=== PATIENT | male | born 1940 | race African-American/Black ===

== ENCOUNTER 2019-05-08 21:37 | Inpatient (IN) | payer MEDICARE, BC ==
[~2019-05-08] VITALS: Ht 175.3 cm; Wt 81.6 kg
--- NOTE | 2019-05-08 21:38 | NUR ---
ED Nurse Note: pt brought in by [facility] from home c/o weakness, pt states he felt weak starting yesterday and worsen today, difficulty getting out of bed, pt also reports he hasn't been eating well for past couple of days. pt accucheck 144 at the bedside, pt AA&ox4, gcs=15, skin warm and dry, resp even and unlabored on RA,-n/v/d, sinus tach on campus monitor, HR 108, vss, afebrile, will cont monitor. safety precautions in place.
[2019-05-08 21:55] VITALS: BP 130/70
--- NOTE | 2019-05-08 22:15 | NUR ---
ED Nurse Note: ERMD notified regarding pts o2sat, pt o2sat 88% on RA, pt states he is former smoker and has hx emphysema. pt started on o2 via nc 2L/min. no sx resp distress.
[2019-05-08 22:29] LABS: HEMATOCRIT 49.2 % (42.0-52.0); HEMOGLOBIN 16.7 G/DL (14.2-18.0); MEAN CORPUSCULAR VOLUME 77 FL (80-99); PLATELET COUNT 129 K/UL (150-450); RED BLOOD COUNT 6.39 M/UL (4.70-6.10); RED CELL DISTRIBUTION WIDTH 13.2 % (11.6-14.8); WHITE BLOOD COUNT 11.7 K/UL (4.8-10.8)
[2019-05-08 22:31] LABS: NEUTROPHILS % (AUTO) 92.4 % (45.0-75.0)
[2019-05-08 22:32] LABS: BASOPHILS % (AUTO) 0.9 % (0.0-2.0); LYMPHOCYTES % (AUTO) 3.1 % (20.0-45.0); MONOCYTES % (AUTO) 3.6 % (1.0-10.0)
[2019-05-08 22:41] LABS: ANION GAP 12 mmol/L (5-15); BLOOD UREA NITROGEN 12 mg/dL (7-18); CALCIUM 9.8 MG/DL (8.5-10.1); CARBON DIOXIDE 25 MMOL/L (21-32); CHLORIDE 103 MMOL/L (98-107); CREATININE 1.2 MG/DL (0.55-1.30); POTASSIUM 3.4 MMOL/L (3.5-5.1); SODIUM 140 MMOL/L (136-145)
[2019-05-08 22:54] LABS: ALANINE AMINOTRANSFERASE 15 U/L (12-78); ALBUMIN 3.7 G/DL (3.4-5.0); ALBUMIN/GLOBULIN RATIO 0.8 (1.0-2.7); ALKALINE PHOSPHATASE 103 U/L (46-116); ASPARTATE AMINO TRANSFERASE 12 U/L (15-37); BILIRUBIN,TOTAL 1.4 MG/DL (0.2-1.0); CKMB 0.7 NG/ML (0.0-3.6); CREATINE KINASE 82 U/L (26-308)
[2019-05-08 22:55] VITALS: BP 132/75
[2019-05-08 22:56] LABS: BILIRUBIN,DIRECT 0.2 MG/DL (0.0-0.3)
--- NOTE | 2019-05-08 23:50 | NUR ---
ED Nurse Note: lactic reflex sent.
[2019-05-09] VITALS (7 sets, daily range): BP systolic 110–183; BP diastolic 66–111
--- NOTE | 2019-05-09 00:13 | NUR ---
ED Nurse Note: pt states he cannot urinate at this time, pt received 1L NS and drank water, ERMD notified, per ERMD order in and out cath done to obtain urine sample, pt tolerated well. pt verbalized understanding and agrees with plan.
[2019-05-09 00:29] LABS: APPEARANCE,URINE SLIGHTLY CLOUDY; BILIRUBIN, URINE NEGATIVE (NEGATIVE); GLUCOSE, URINE (UA) NEGATIVE (NEGATIVE); KETONES,URINE 3+ (NEGATIVE); LEUKOCYTE ESTERASE ,URINE 3+ (NEGATIVE); NITRITE,URINE NEGATIVE (NEGATIVE); PH,URINE 5 (4.5-8.0); PROTEIN,URINE 3+ (NEGATIVE); UROBILINOGEN,URINE 1 MG/DL (0.0-1.0)
--- NOTE | 2019-05-09 01:10 | NUR ---
ED Nurse Note: ERMD AWARE OF PT'S TROPONIN LEVEL, WILL WAIT FOR FURTHER ORDERS.
[2019-05-09 01:18] LABS: COLOR,URINE YELLOW
--- NOTE | 2019-05-09 01:18 | NUR ---
ED Nurse Note: REPORT GIVEN TO STEPHANIE CANCHOLA.
[2019-05-09] MEDS ORDERED: cefTRIAXone 1 GM in D5W 55 ML IVPB ONE (01:30)
--- NOTE | 2019-05-09 01:50 | NUR ---
ED Nurse Note: PT TRANSFERRED TO TELE VIA GURNEY, SINUS RHYTHM ON CASTINGS TRIMMER, VSS, RESP EVEN AND UNLABORED ON O2 VIA NC=2L/MIN, CARE ENDORSED TO RN SUSHANT, ALL BELONGINGS SENT W/ PT W/ COMPLETED LIST, IV INTACT AND PATENT.
--- NOTE | 2019-05-09 02:00 | NUR ---
NURSE NOTES: Received patient via gurney from ER brought by Serenity BROWN. Patient in stable condition, AO x4, denies pain at this time, on O2@2L, IV site on L forearm G20, asymptomatic, intact, patent, no skin impairment, belongings list checked and signed, bed low&locked, side rails upx2, call light within reach, will continue to monitor and reassess.
--- NOTE | 2019-05-09 02:45 | NUR ---
NURSE NOTES: Called Dr. Sánchez and received admission orders. Noted and carried out
--- NOTE | 2019-05-09 03:30 | Emergency Room Report ---
History of Present Illness General Chief Complaint: Generalized Weakness Source: Patient Present Illness HPI Patient presents with complaints of general weakness Denies any focal weakness however over the past 3 days he has had decreased oral intake Denies any chest pain denies any vomiting or diarrhea Family also reports that the patient is usually more energetic and appears to be weaker than usual unknown regarding fevers denies any change in medications Allergies: Coded Allergies: No Known Allergies (Verified , 09/09/11) Patient History Past Medical History: see triage record Reviewed Nursing Documentation: PMH: Agreed; PSxH: Agreed Nursing Documentation-PMH Past Medical History: No History, Except For Hx Cardiac Problems: No - HIGH CHOLESTEROL Hx Hypertension: Yes Hx COPD: Yes - EMPHYSEMA Hx Diabetes: Yes - NIDDM Review of Systems All Other Systems: negative except mentioned in HPI Physical Exam Vital Signs Date Time Temp Pulse Resp B/P (MAP) Pulse Ox O2 Delivery O2 Flow Rate FiO2 05/08/19 21:33 98.2 109 18 133/76 (95) 83 Room Air 05/08/19 22:55 2.0 Sp02 EP Interpretation: reviewed, normal General Appearance: well appearing, no apparent distress Head: normocephalic, atraumatic Eyes: bilateral eye PERRL, bilateral eye EOMI ENT: hearing grossly normal, TMs + canals normal, uvula midline, dry mucus membranes Neck: full range of motion, supple, no meningismus, no bony tend Respiratory: lungs clear, normal breath sounds, no rhonchi, no respiratory distress, no retraction, no accessory muscle use Cardiovascular #1: normal peripheral pulses, regular rate, rhythm, no edema, no gallop, no JVD, no murmur Gastrointestinal: normal bowel sounds, non tender, soft, no mass, no organomegaly, non-distended, no guarding, no hernia, no pulsatile mass, no rebound Genitourinary: no CVA tenderness Musculoskeletal: normal inspection Neurologic: oriented x3, responsive, chiropractic neurologist III-XII nml as tested, motor strength/ tone normal, sensory intact Psychiatric: mood/affect normal Skin: no rash Lymphatic: normal inspection, no adenopathy Medical Decision Making Diagnostic Impression: Primary Impression: UTI (urinary tract infection) Additional Impressions: Weakness Dehydration ER Course Patient is a fairly complex patient with multiple differential to consideration including but not limited to cardiac cardiopulmonary and vascular emergencies Other infectious pathology also entertained patient's troponin level is mildly elevated EKG does not show any acute findings Patient's urine sample also shows significant infection Broad-spectrum antibiotics initiated IV hydration and patient admitted for further care Labs Test 05/08/19 21:50 05/08/19 23:50 White Blood Count 11.7 K/UL (4.8-10.8) Red Blood Count 6.39 M/UL (4.70-6.10) Hemoglobin 16.7 G/DL (14.2-18.0) Hematocrit 49.2 % (42.0-52.0) Mean Corpuscular Volume 77 FL (80-99) Mean Corpuscular Hemoglobin 26.1 PG (27.0-31.0) Mean Corpuscular Hemoglobin Concent 33.9 G/DL (32.0-36.0) Red Cell Distribution Width 13.2 % (11.6-14.8) Platelet Count 129 K/UL (150-450) Mean Platelet Volume 7.4 FL (6.5-10.1) Neutrophils (%) (Auto) 92.4 % (45.0-75.0) Lymphocytes (%) (Auto) 3.1 % (20.0-45.0) Monocytes (%) (Auto) 3.6 % (1.0-10.0) Eosinophils (%) (Auto) 0.0 % (0.0-3.0) Basophils (%) (Auto) 0.9 % (0.0-2.0) Urine Color Yellow Urine Appearance Slightly cloudy Urine pH 5 (4.5-8.0) Urine Specific [place] 1.015 (1.005-1.035) Urine Protein 3+ (NEGATIVE) Urine Glucose (UA) Negative (NEGATIVE) Urine Ketones 3+ (NEGATIVE) Urine Blood 5+ (NEGATIVE) Urine Nitrite Negative (NEGATIVE) Urine Bilirubin Negative (NEGATIVE) Urine Urobilinogen 1 MG/DL (0.0-1.0) Urine Leukocyte Esterase 3+ (NEGATIVE) Urine RBC Tntc /HPF (0 - 0) Urine WBC Tntc /HPF (0 - 0) Urine Squamous Epithelial Cells None /LPF (NONE/OCC) Urine Bacteria Moderate /HPF (NONE) Sodium Level 140 MMOL/L (136-145) Potassium Level 3.4 MMOL/L (3.5-5.1) Chloride Level 103 MMOL/L (98-107) Carbon Dioxide Level 25 MMOL/L (21-32) Anion Gap 12 mmol/L (5-15) Blood Urea Nitrogen 12 mg/dL (7-18) Creatinine 1.2 MG/DL (0.55-1.30) Estimat Glomerular Filtration Rate mL/min (>60) Glucose Level 143 MG/DL (74-106) Lactic Acid Level 2.20 mmol/L (0.4-2.0) 1.10 mmol/L (0.66-2.22) Calcium Level 9.8 MG/DL (8.5-10.1) Total Bilirubin 1.4 MG/DL (0.2-1.0) Direct Bilirubin 0.2 MG/DL (0.0-0.3) Aspartate Amino Transf (AST/SGOT) 12 U/L (15-37) Alanine Aminotransferase (ALT/SGPT) 15 U/L (12-78) Alkaline Phosphatase 103 U/L (46-116) Total Creatine Kinase 82 U/L (26-308) Creatine Kinase MB 0.7 NG/ML (0.0-3.6) Creatine Kinase MB Relative Index 0.8 Troponin I 0.085 ng/mL (0.000-0.056) Total Protein 8.2 G/DL (6.4-8.2) Albumin 3.7 G/DL (3.4-5.0) Globulin 4.5 g/dL Albumin/Globulin Ratio 0.8 (1.0-2.7) Lipase 198 U/L (73-393) Rhythm Strip Diag. Results EP Interpretation: yes Rate: 78 Rhythm: NSR, no PVC's, no ectopy Chest X-Ray Diagnostic Results Chest X-Ray Diagnostic Results : Chest X-Ray Ordered: Yes # of Views/Limited/Complete: 1 View Indication: Chest Pain EP Interpretation: Yes Interpretation: no consolidation, no pneumothorax, other - Left lower lobe haziness Impression: Other - Left lower lobe haziness Electronically Signed by: Deion Kendrick DO Last Vital Signs Date Time Temp Pulse Resp B/P (MAP) Pulse Ox O2 Delivery O2 Flow Rate FiO2 05/09/19 02:02 96 05/09/19 02:00 98.2 18 128/66 (86) 95 05/09/19 01:50 Nasal Cannula 2.0 Status: improved Disposition: ADMITTED INPATIENT Condition: Serious Referrals: NON PHYSICIAN (PCP) Deion Kendrick DO May 09, 2019 03:30
--- NOTE | 2019-05-09 07:05 | NUR ---
HAND-OFF: Report given to STEPHANIE Subramanian, patient in stable condition, plan of care endorsed.
[2019-05-09 07:49] LABS: ANION GAP 8 mmol/L (5-15); BLOOD UREA NITROGEN 13 mg/dL (7-18); CALCIUM 9.2 MG/DL (8.5-10.1); CARBON DIOXIDE 24 MMOL/L (21-32); CHLORIDE 106 MMOL/L (98-107); CREATININE 1.1 MG/DL (0.55-1.30); POTASSIUM 3.9 MMOL/L (3.5-5.1); SODIUM 138 MMOL/L (136-145)
[2019-05-09] MEDS: Atenolol 25mg tab ORAL SCH (08:50)
--- NOTE | 2019-05-09 09:13 | NUR ---
Assistant Clinical Nurse ManagerAssessment Director 78 Y/O male BIBA from Home CC: WEAKNESS SINCE LAST NIGHT, STATES UNABLE TO WALK CAUSE WEAKNESS SI: WEAKNESS, DEHYDRATION VS: BP: 132/75 HR: 96 RR 20 02 Sat 98% (NC-2L) T: 98.8 NT: WBC 11.7 PT 129 CLARISA% 92.4 UR JEROMY 3+ UR BACTERIA MOD TROPONIN 0.085 LACTIC 2.20 IS: NS 1000ML IV Admitted to TELEMETRY TELEMETRY status DCP: Pending Hospital Stay
--- NOTE | 2019-05-09 09:26 | History and Physical ---
History of Present Illness General Date patient seen: May 09, 2019 Reason for Hospitalization: trop Present Illness HPI 78-year-old male with past medical history of diabetes 2, hypertension, dyslipidemia presents for generalized weakness for several days. Patient was found to have initial elevated troponin. And admitted for further work-up. After admission patient was found to be acutely hypoxic, with oxygen saturation of 78% on 2 L. Patient's baseline oxygen is 2 L. Patient does have a history of smoking. Patient denied any chest pain, but admitted to abdominal pain, nausea, shortness of breath. Patient also had systolic blood pressure above 180. Stat work-up was ordered including troponin, EKG, stat chest x-ray, Coreg 25 mg p.o. x1, d-dimer, heparin drip, nitro patch. I was at bedside for over 35 minutes in evaluation of patient. Patient's blood pressure was controlled with systolic now in the 100s. Chest x-ray was reviewed and showed a paratracheal mass with deviation, and some left lower lung effusion. Given the mass, which was suspected as a thyroid mass, further imaging is recommended, since the d-dimer is elevated I have ordered a CT angiogram of the chest. Patient was also found to have a UTI and continued on Rocephin. Consults called and as below. Past medical history: Hypertension, diabetes, dyslipidemia; patient denies history of heart attack Medications: All medications reviewed per med rec Past social history: Patient denies excessive EtOH, admits to smoking, denies drug use Past family history: Patient denies Allergies: Coded Allergies: No Known Allergies (Verified , 09/09/11) Patient History Healthcare decision maker Resuscitation status Full Code Advanced Directive on File Physical Exam Physical Exam Narrative GENERAL: Patient is guarded, having difficulty answering verbally, alert, follows commands, nasal cannula at 4 L HEENT: NCAT, non-icteric eyes, pupils PERRLA Neck: No cervical lymphadenopathy, trachea midline CV: Regular rate and rhythm, no murmurs rubs or gallops RESP: Clear to auscultation bilaterally, no wheezes/rhonchi/crackles EXT: Normal muscle tone, +5/5 muscle strength NEURO: No obvious deficits, alert and oriented x3 Last 24 Hour Vital Signs Date Time Temp Pulse Resp B/P (MAP) Pulse Ox O2 Delivery O2 Flow Rate FiO2 05/09/19 08:50 98.3 93 20 130/83 (99) 97 05/09/19 08:50 88 114/69 05/09/19 04:00 2.0 05/09/19 04:00 88 05/09/19 04:00 96.6 82 18 114/69 (84) 97 05/09/19 02:14 Nasal Cannula 2.0 05/09/19 02:02 96 05/09/19 02:00 98.2 95 18 128/66 (86) 95 05/09/19 01:50 99.5 98 18 137/70 98 Nasal Cannula 2.0 05/09/19 00:00 99.1 93 16 136/86 96 Nasal Cannula 2.0 05/08/19 22:55 98.8 96 20 132/75 98 Nasal Cannula 2.0 05/08/19 21:55 108 24 Room Air 05/08/19 21:55 98.2 108 24 130/70 89 Room Air 05/08/19 21:33 98.2 109 18 133/76 (95) 83 Room Air Intake and Output 05/08/19 05/09/19 18:59 06:59 Intake Total 1000 ml Balance 1000 ml IV Total 1000 ml # Voids 1 Laboratory Tests Test 05/08/19 21:50 05/08/19 23:50 05/09/19 05:50 White Blood Count 11.7 K/UL (4.8-10.8) H Red Blood Count 6.39 M/UL (4.70-6.10) H Hemoglobin 16.7 G/DL (14.2-18.0) Hematocrit 49.2 % (42.0-52.0) Mean Corpuscular Volume 77 FL (80-99) L Mean Corpuscular Hemoglobin 26.1 PG (27.0-31.0) L Mean Corpuscular Hemoglobin Concent 33.9 G/DL (32.0-36.0) Red Cell Distribution Width 13.2 % (11.6-14.8) Platelet Count 129 K/UL (150-450) L Mean Platelet Volume 7.4 FL (6.5-10.1) Neutrophils (%) (Auto) 92.4 % (45.0-75.0) H Lymphocytes (%) (Auto) 3.1 % (20.0-45.0) L Monocytes (%) (Auto) 3.6 % (1.0-10.0) Eosinophils (%) (Auto) 0.0 % (0.0-3.0) Basophils (%) (Auto) 0.9 % (0.0-2.0) Urine Color Yellow Urine Appearance Slightly cloudy Urine pH 5 (4.5-8.0) Urine Specific [place] 1.015 (1.005-1.035) Urine Protein 3+ (NEGATIVE) H Urine Glucose (UA) Negative (NEGATIVE) Urine Ketones 3+ (NEGATIVE) H Urine Blood 5+ (NEGATIVE) H Urine Nitrite Negative (NEGATIVE) Urine Bilirubin Negative (NEGATIVE) Urine Urobilinogen 1 MG/DL (0.0-1.0) H Urine Leukocyte Esterase 3+ (NEGATIVE) H Urine RBC Tntc /HPF (0 - 0) H Urine WBC Tntc /HPF (0 - 0) H Urine Squamous Epithelial Cells None /LPF (NONE/OCC) Urine Bacteria Moderate /HPF (NONE) H Sodium Level 140 MMOL/L (136-145) 138 MMOL/L (136-145) Potassium Level 3.4 MMOL/L (3.5-5.1) L 3.9 MMOL/L (3.5-5.1) Chloride Level 103 MMOL/L (98-107) 106 MMOL/L (98-107) Carbon Dioxide Level 25 MMOL/L (21-32) 24 MMOL/L (21-32) Anion Gap 12 mmol/L (5-15) 8 mmol/L (5-15) Blood Urea Nitrogen 12 mg/dL (7-18) 13 mg/dL (7-18) Creatinine 1.2 MG/DL (0.55-1.30) 1.1 MG/DL (0.55-1.30) Estimat Glomerular Filtration Rate mL/min (>60) mL/min (>60) Glucose Level 143 MG/DL (74-106) H 133 MG/DL (74-106) H Lactic Acid Level 2.20 mmol/L (0.4-2.0) H 1.10 mmol/L (0.66-2.22) Calcium Level 9.8 MG/DL (8.5-10.1) 9.2 MG/DL (8.5-10.1) Total Bilirubin 1.4 MG/DL (0.2-1.0) H Direct Bilirubin 0.2 MG/DL (0.0-0.3) Aspartate Amino Transf (AST/SGOT) 12 U/L (15-37) L Alanine Aminotransferase (ALT/SGPT) 15 U/L (12-78) Alkaline Phosphatase 103 U/L (46-116) Total Creatine Kinase 82 U/L (26-308) Creatine Kinase MB 0.7 NG/ML (0.0-3.6) Creatine Kinase MB Relative Index 0.8 Troponin I 0.085 ng/mL (0.000-0.056) 0.261 ng/mL (0.000-0.056) Total Protein 8.2 G/DL (6.4-8.2) Albumin 3.7 G/DL (3.4-5.0) Globulin 4.5 g/dL Albumin/Globulin Ratio 0.8 (1.0-2.7) L Lipase 198 U/L (73-393) Height (Feet): 5 Height (Inches): 9.00 Weight (Pounds): 180 Medications Current Medications Medications (Trade) Dose Ordered Sig/Gilberto Route PRN Reason Start Time Stop Time Status Last Admin Dose Admin Aspirin (ASA) 81 mg DAILY NG 05/09/19 09:30 06/08/19 09:29 UNV Atenolol (Tenormin) 25 mg DAILY ORAL 05/09/19 09:00 06/08/19 08:59 05/09/19 08:50 Atorvastatin Calcium (Lipitor) 40 mg BEDTIME ORAL 05/09/19 21:00 06/08/19 20:59 Ceftriaxone Sodium 1 gm/ Dextrose 55 ml @ 110 mls/hr Q24H IVPB 05/10/19 02:00 05/17/19 01:59 Ondansetron HCl (Zofran) 4 mg Q6H PRN IVP Nausea & Vomiting 05/09/19 03:00 06/08/19 02:59 Assessment/Plan Diagnosis [place] I: 78-year-old male with past medical history of hypertension, smoking history, dyslipidemia, diabetes 2. #Acute hypoxia DDX: PE, ACS -Pulmonology consult, appreciate recs -Serial troponins and EKGs, reviewed -Chest x-ray reviewed: Small left pleural effusion and paratracheal mass with left tracheal deviation -Follow-up CTA chest to rule out PE and further evaluate mass and pleural effusion -Continue current medications -Patient baseline O2 2 L nasal cannula #Elevated troponin: NSTEMI, versus troponin leak from demand ischemia -Cardiology consult, appreciate recs -EKGs reviewed no ST elevation or T wave inversions -Troponins reviewed, and steadily trending up: 0.3 -Heparin drip started -Continue beta-stefanie, aspirin, statin, DEVIN inhibitor -Status post 300 mg Plavix -Follow-up echo -Continue Nitropatch -Blood pressure control #Hypertensive urgency, now resolved -Continue home medications and adjust as necessary #UTI -Continue Rocephin -Follow-up culture and sensitivity #Diabetes type 2 -Check A1c -Accu-Cheks q. before meals nightly -Patient takes metformin at home, hold while in hospital #Dyslipidemia -Fasting lipid panel in a.m. -Continue statin Advanced care planning discussion with patient. Time spent: 17 minutes. Patient would like to be a FULL code. Additional 36 minutes of critical care time spent at bedside during rapid response as discussed above. Time of note may not reflect time of patient encounter. Adri Garland DO May 09, 2019 09:26
[2019-05-09] MEDS ORDERED: Aspirin Baby 81mg NG SCH (09:30)
--- NOTE | 2019-05-09 09:42 | NUR ---
NURSE NOTES: troponin reported 0.261>>>>>DR. Garland notified with no new order
--- NOTE | 2019-05-09 10:48 | Consultation ---
History of Present Illness General Date patient seen: May 09, 2019 Time patient seen: 17:20 Chief Complaint: Generalized Weakness Present Illness HPI Patient brought in by [facility] from home c/o weakness, pt states he felt weak starting yesterday and worsen today, difficulty getting out of bed, pt also reports he hasn't been eating well for past couple of days. Patient states he is former smoker and has hx emphysema. Patient has risk factors: diabetes 2, hypertension, dyslipidemia. Cardiology consulted for elevated troponin. After admission patient was found to be acutely hypoxic, with oxygen saturation of 78 % on 2 L. Patient's baseline oxygen is 2 L. Patient denied any chest pain, Patient also had systolic blood pressure above 180. Stat work-up was ordered including troponin, EKG, stat chest x-ray, Coreg 25 mg p.o. x1, d-dimer, heparin drip, nitro patch. Chest x-ray was reviewed and showed a paratracheal mass with deviation, and some left lower lung effusion. Allergies: Coded Allergies: No Known Allergies (Verified , 09/09/11) Patient History Healthcare decision maker Resuscitation status Full Code Advanced Directive on File Review of Systems Constitutional: Reports: no symptoms Eye: Reports: no symptoms ENT: Reports: no symptoms Respiratory: Reports: cough, orthopnea, shortness of breath Cardiovascular: Reports: no symptoms Gastrointestinal: Reports: no symptoms Genitourinary: Reports: no symptoms Musculoskeletal: Reports: no symptoms Skin: Reports: no symptoms Psychiatric: Reports: no symptoms Neurological: Reports: headache, focal weakness Endocrine: Reports: no symptoms Hematologic/Lymphatic: Reports: no symptoms Physical Exam General Appearance: no apparent distress, alert Lines, tubes and drains: peripheral HEENT: normocephalic, atraumatic, anicteric, mucous membranes moist, PERRL Neck: non-tender, normal alignment, supple, normal inspection Respiratory/Chest: chest wall non-tender, lungs clear, normal breath sounds Cardiovascular/Chest: normal peripheral pulses, normal rate, regular rhythm Abdomen: normal bowel sounds, non tender, soft, no organomegaly, no mass Extremities: normal range of motion, non-tender, normal inspection, no calf tenderness, normal capillary refill, non-pitting Skin Exam: normal pigmentation, warm/dry Neurologic: drop wirer II-XII grossly normal, no motor/sensory deficits Last 24 Hour Vital Signs Date Time Temp Pulse Resp B/P (MAP) Pulse Ox O2 Delivery O2 Flow Rate FiO2 05/09/19 10:17 Nasal Cannula 2.0 05/09/19 08:50 98.3 93 20 130/83 (99) 97 05/09/19 08:50 88 114/69 05/09/19 04:00 2.0 05/09/19 04:00 88 05/09/19 04:00 96.6 82 18 114/69 (84) 97 05/09/19 02:14 Nasal Cannula 2.0 05/09/19 02:02 96 05/09/19 02:00 98.2 95 18 128/66 (86) 95 05/09/19 01:50 99.5 98 18 137/70 98 Nasal Cannula 2.0 05/09/19 00:00 99.1 93 16 136/86 96 Nasal Cannula 2.0 05/08/19 22:55 98.8 96 20 132/75 98 Nasal Cannula 2.0 05/08/19 21:55 108 24 Room Air 05/08/19 21:55 98.2 108 24 130/70 89 Room Air 05/08/19 21:33 98.2 109 18 133/76 (95) 83 Room Air Intake and Output 05/08/19 05/09/19 18:59 06:59 Intake Total 1000 ml Balance 1000 ml IV Total 1000 ml # Voids 1 Laboratory Tests Test 05/08/19 21:50 05/08/19 23:50 05/09/19 05:50 05/09/19 09:35 White Blood Count 11.7 K/UL (4.8-10.8) H Red Blood Count 6.39 M/UL (4.70-6.10) H Hemoglobin 16.7 G/DL (14.2-18.0) Hematocrit 49.2 % (42.0-52.0) Mean Corpuscular Volume 77 FL (80-99) L Mean Corpuscular Hemoglobin 26.1 PG (27.0-31.0) L Mean Corpuscular Hemoglobin Concent 33.9 G/DL (32.0-36.0) Red Cell Distribution Width 13.2 % (11.6-14.8) Platelet Count 129 K/UL (150-450) L Mean Platelet Volume 7.4 FL (6.5-10.1) Neutrophils (%) (Auto) 92.4 % (45.0-75.0) H Lymphocytes (%) (Auto) 3.1 % (20.0-45.0) L Monocytes (%) (Auto) 3.6 % (1.0-10.0) Eosinophils (%) (Auto) 0.0 % (0.0-3.0) Basophils (%) (Auto) 0.9 % (0.0-2.0) Urine Color Yellow Urine Appearance Slightly cloudy Urine pH 5 (4.5-8.0) Urine Specific [place] 1.015 (1.005-1.035) Urine Protein 3+ (NEGATIVE) H Urine Glucose (UA) Negative (NEGATIVE) Urine Ketones 3+ (NEGATIVE) H Urine Blood 5+ (NEGATIVE) H Urine Nitrite Negative (NEGATIVE) Urine Bilirubin Negative (NEGATIVE) Urine Urobilinogen 1 MG/DL (0.0-1.0) H Urine Leukocyte Esterase 3+ (NEGATIVE) H Urine RBC Tntc /HPF (0 - 0) H Urine WBC Tntc /HPF (0 - 0) H Urine Squamous Epithelial Cells None /LPF (NONE/OCC) Urine Bacteria Moderate /HPF (NONE) H Sodium Level 140 MMOL/L (136-145) 138 MMOL/L (136-145) Potassium Level 3.4 MMOL/L (3.5-5.1) L 3.9 MMOL/L (3.5-5.1) Chloride Level 103 MMOL/L (98-107) 106 MMOL/L (98-107) Carbon Dioxide Level 25 MMOL/L (21-32) 24 MMOL/L (21-32) Anion Gap 12 mmol/L (5-15) 8 mmol/L (5-15) Blood Urea Nitrogen 12 mg/dL (7-18) 13 mg/dL (7-18) Creatinine 1.2 MG/DL (0.55-1.30) 1.1 MG/DL (0.55-1.30) Estimat Glomerular Filtration Rate mL/min (>60) mL/min (>60) Glucose Level 143 MG/DL (74-106) H 133 MG/DL (74-106) H Lactic Acid Level 2.20 mmol/L (0.4-2.0) H 1.10 mmol/L (0.66-2.22) Calcium Level 9.8 MG/DL (8.5-10.1) 9.2 MG/DL (8.5-10.1) Total Bilirubin 1.4 MG/DL (0.2-1.0) H Direct Bilirubin 0.2 MG/DL (0.0-0.3) Aspartate Amino Transf (AST/SGOT) 12 U/L (15-37) L Alanine Aminotransferase (ALT/SGPT) 15 U/L (12-78) Alkaline Phosphatase 103 U/L (46-116) Total Creatine Kinase 82 U/L (26-308) Creatine Kinase MB 0.7 NG/ML (0.0-3.6) Creatine Kinase MB Relative Index 0.8 Troponin I 0.085 ng/mL (0.000-0.056) 0.261 ng/mL (0.000-0.056) 0.308 ng/mL (0.000-0.056) Total Protein 8.2 G/DL (6.4-8.2) Albumin 3.7 G/DL (3.4-5.0) Globulin 4.5 g/dL Albumin/Globulin Ratio 0.8 (1.0-2.7) L Lipase 198 U/L (73-393) Height (Feet): 5 Height (Inches): 9.00 Weight (Pounds): 180 Medications Current Medications Medications (Trade) Dose Ordered Sig/Gilberto Route PRN Reason Start Time Stop Time Status Last Admin Dose Admin Allopurinol (Allopurinol) 300 mg DAILY ORAL 05/09/19 11:00 06/08/19 10:59 Aspirin (ASA) 81 mg DAILY ORAL 05/09/19 10:00 06/08/19 09:29 Atenolol (Tenormin) 25 mg DAILY ORAL 05/09/19 09:00 06/08/19 08:59 05/09/19 08:50 Atorvastatin Calcium (Lipitor) 40 mg BEDTIME ORAL 05/09/19 21:00 06/08/19 20:59 Ceftriaxone Sodium 1 gm/ Dextrose 55 ml @ 110 mls/hr Q24H IVPB 05/10/19 02:00 05/17/19 01:59 Lisinopril (Zestril) 5 mg DAILY ORAL 05/09/19 11:00 06/08/19 10:59 Ondansetron HCl (Zofran) 4 mg Q6H PRN IVP Nausea & Vomiting 05/09/19 03:00 06/08/19 02:59 Pregabalin (Lyrica) 50 mg DAILY ORAL 05/09/19 11:00 06/08/19 10:59 Vitamin D (Vitamin D) 1,000 intlu DAILY ORAL 05/09/19 11:00 06/08/19 10:59 Assessment/Plan Assessment/Plan: Assessment: (1) NSTEMI (non-ST elevated myocardial infarction) (2) Hypoxemia (3) Elevated d-dimer (4) Tracheal deviation (5) Mediastinal mass (6) UTI (urinary tract infection) (7) Weakness (8) NIDDY (non-insulin dependent diabetes mellitus in young) (9) Hyperlipemia (10) Obesity (11) HTN (hypertension) (12) Slurred speech Plan: Echocardiogram Trend troponin/EKG Nitro prn Ideally would perform angiogram given risk factors but not available Stress test when stable and troponin down trended Heparin if troponin rising + chest pain/EKG changes CTA to evaluate for PE Supplementary oxygen IV abx for UTI Continue aspirin Continue statin Continue beta stefanie Thoracentesis evaluation for effusion Cedric Gallardo MD May 09, 2019 10:48
[2019-05-09] MEDS: Vitamin D 1000 IU Tab ORAL SCH (11:24)
[2019-05-09] MEDS: Aspirin Baby 81mg ORAL SCH (11:24)
[2019-05-09] MEDS: Lisinopril 10mg tab ORAL SCH (11:24)
[2019-05-09] MEDS: Lyrica 50mg cap ORAL SCH (11:24)
[2019-05-09] MEDS ORDERED: Heparin 25,000u/D5W 500ml 500 ML IV SCH ×2 (11:30)
[2019-05-09] MEDS ORDERED: Metoprolol Succinate XL 50mg tab ORAL SCH (11:45)
[2019-05-09] MEDS ORDERED: Nitroglycerin 2% oint pkt TOPIC SCH (12:00)
[2019-05-09] MEDS ORDERED: Carvedilol 25mg Tab ORAL SCH (12:00)
--- NOTE | 2019-05-09 12:16 | NUR ---
NURSE NOTES: PATIENT BLOOD PRESSURE 181/111 OXYGEN SAT 81 Rapid Respond team called @1035 DR. dorsey notified, state ekg, d.dimer done, state bp medical assistant per diem as ordered patient condition stabilized at 1219. patient on hep gtt as ordered 12u/ kg/ hr and ptt ordered per protocol will continue to monitor.
--- NOTE | 2019-05-09 12:30 | Diagnostic Imaging Report ---
Indication: Shortness of breath, status post CODE BLUE Technique: One view of the chest Comparison: 05/08/2019 Findings: Again demonstrated is leftward tracheal deviation by a large right upper mediastinal mass. New or increased left-sided pleural effusion is noted. The right lung and pleural space are clear except for minimal right basilar atelectasis. Calcified granuloma projects at the left lung base Impression: New or increased left-sided pleural effusion Right paratracheal mass with leftward tracheal deviation again demonstrated. Likely a thyroid mass. Recommend further evaluation with chest CT or thyroid ultrasound
--- NOTE | 2019-05-09 12:36 | Cardiology Report ---
APPROVED REPORT EKG Measurement Heart [id number] Sinus rhythm with 1st degree AV block Possible Left atrial enlargement Borderline ECG
[2019-05-09] MEDS ORDERED: Isovue-370 150ml vial INJ PRN (14:30)
--- NOTE | 2019-05-09 14:52 | Diagnostic Imaging Report ---
Indication: Chest pain Technique: One view of the chest Comparison: 09/08/2011 Findings: There is marked widening of the upper mediastinum and leftward deviation of the trachea. A equivocally evident previously, much more striking currently. There is atelectasis and possibly some consolidation at the left lung base. The left costophrenic angle is blunted, probably by the parenchymal disease but pleural fluid also possible. The right lung and pleural space are clear. The heart size is normal. Calcified granuloma projects at the left lung base Impression: Markedly widened upper mediastinum with leftward tracheal deviation. Upper mediastinal mass, likely thyroid in origin, deemed likely. Further evaluation with CT or thyroid sonography should be considered Left basilar atelectasis and possible consolidation. Left pleural effusion also possible
[2019-05-09 14:59] LABS: HEMATOCRIT 49.1 % (42.0-52.0); HEMOGLOBIN 16.3 G/DL (14.2-18.0); MEAN CORPUSCULAR VOLUME 76 FL (80-99); PLATELET COUNT 117 K/UL (150-450); RED BLOOD COUNT 6.45 M/UL (4.70-6.10); RED CELL DISTRIBUTION WIDTH 15.6 % (11.6-14.8)
--- NOTE | 2019-05-09 15:11 | Consultation ---
History of Present Illness General Date patient seen: May 09, 2019 Time patient seen: 15:02 Chief Complaint: Hypoxemia Referring physician: Dr. Adri Garland Reason for Consultation: SOB Present Illness HPI 78 M former smoker h/o COPD, HTN, HL, NIDDM p/w several days of generalized weakness and dizziness with periods of slurred speech (has happened in the past before per pt). No FC, no MIRELES, no dizziness, no NVDC, no abd pain or urinary complaints, no CP, no SOB, no PND, no orthopnea, no wheezing. AFVSS x for elevated BP, mild trop elevation, mild leukocytosis and UTI. No current RAVI use. He has been seen by cards as well and repeat ECG/trop as well as TTE is pending. This afternoon while on the floor his saturation dropped to the 70s on 2L and required 4L to recover. CXR shows a mediastinal mass and tracheal deviation. D-dimer was elevated. CT-A is pending. Allergies: Coded Allergies: No Known Allergies (Verified , 09/09/11) Medication History Medications Narrative Patient is unsure of his home meds but stated his daughter will bring them in Patient History History Provided By: Patient Healthcare decision maker Resuscitation status Full Code Advanced Directive on File Past Medical/Surgical History Past Medical/Surgical History: (1) Former smoker (2) H/O hernia repair (3) Hyperlipemia (4) HTN (hypertension) (5) Obesity (6) NIDDY (non-insulin dependent diabetes mellitus in young) Review of Systems All Other Systems: negative except mentioned in HPI Physical Exam General Appearance: WD/WN, no apparent distress, other - obese Lines, tubes and drains: peripheral HEENT: normocephalic, atraumatic, anicteric, mucous membranes moist, PERRL Neck: non-tender, normal alignment, supple, normal inspection Respiratory/Chest: chest wall non-tender, lungs clear, normal breath sounds, no respiratory distress, no accessory muscle use Cardiovascular/Chest: normal peripheral pulses, normal rate, regular rhythm Abdomen: normal bowel sounds, non tender, soft, no organomegaly, no mass Extremities: other - no C/C/E 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, no motor/sensory deficits, alert, oriented x 3, responsive, normal mood/affect Last 24 Hour Vital Signs Date Time Temp Pulse Resp B/P (MAP) Pulse Ox O2 Delivery O2 Flow Rate FiO2 05/09/19 12:11 183/111 05/09/19 12:11 85 181/111 05/09/19 12:00 88 05/09/19 11:24 130/83 05/09/19 10:17 Nasal Cannula 2.0 05/09/19 08:50 98.3 93 20 130/83 (99) 97 05/09/19 08:50 88 114/69 05/09/19 08:00 81 05/09/19 04:00 2.0 05/09/19 04:00 88 05/09/19 04:00 96.6 82 18 114/69 (84) 97 05/09/19 02:50 96 Nasal Cannula 2.0 28 05/09/19 02:14 Nasal Cannula 2.0 05/09/19 02:02 96 05/09/19 02:00 98.2 95 18 128/66 (86) 95 05/09/19 01:50 99.5 98 18 137/70 98 Nasal Cannula 2.0 05/09/19 00:00 99.1 93 16 136/86 96 Nasal Cannula 2.0 05/08/19 22:55 98.8 96 20 132/75 98 Nasal Cannula 2.0 05/08/19 21:55 108 24 Room Air 05/08/19 21:55 98.2 108 24 130/70 89 Room Air 05/08/19 21:33 98.2 109 18 133/76 (95) 83 Room Air Intake and Output 05/08/19 05/09/19 19:00 07:00 Intake Total 1000 ml Balance 1000 ml IV Total 1000 ml # Voids 1 Laboratory Tests Test 05/08/19 21:50 05/08/19 23:50 05/09/19 05:50 05/09/19 09:35 White Blood Count 11.7 K/UL (4.8-10.8) H Red Blood Count 6.39 M/UL (4.70-6.10) H Hemoglobin 16.7 G/DL (14.2-18.0) Hematocrit 49.2 % (42.0-52.0) Mean Corpuscular Volume 77 FL (80-99) L Mean Corpuscular Hemoglobin 26.1 PG (27.0-31.0) L Mean Corpuscular Hemoglobin Concent 33.9 G/DL (32.0-36.0) Red Cell Distribution Width 13.2 % (11.6-14.8) Platelet Count 129 K/UL (150-450) L Mean Platelet Volume 7.4 FL (6.5-10.1) Neutrophils (%) (Auto) 92.4 % (45.0-75.0) H Lymphocytes (%) (Auto) 3.1 % (20.0-45.0) L Monocytes (%) (Auto) 3.6 % (1.0-10.0) Eosinophils (%) (Auto) 0.0 % (0.0-3.0) Basophils (%) (Auto) 0.9 % (0.0-2.0) Urine Color Yellow Urine Appearance Slightly cloudy Urine pH 5 (4.5-8.0) Urine Specific [place] 1.015 (1.005-1.035) Urine Protein 3+ (NEGATIVE) H Urine Glucose (UA) Negative (NEGATIVE) Urine Ketones 3+ (NEGATIVE) H Urine Blood 5+ (NEGATIVE) H Urine Nitrite Negative (NEGATIVE) Urine Bilirubin Negative (NEGATIVE) Urine Urobilinogen 1 MG/DL (0.0-1.0) H Urine Leukocyte Esterase 3+ (NEGATIVE) H Urine RBC Tntc /HPF (0 - 0) H Urine WBC Tntc /HPF (0 - 0) H Urine Squamous Epithelial Cells None /LPF (NONE/OCC) Urine Bacteria Moderate /HPF (NONE) H Sodium Level 140 MMOL/L (136-145) 138 MMOL/L (136-145) Potassium Level 3.4 MMOL/L (3.5-5.1) L 3.9 MMOL/L (3.5-5.1) Chloride Level 103 MMOL/L (98-107) 106 MMOL/L (98-107) Carbon Dioxide Level 25 MMOL/L (21-32) 24 MMOL/L (21-32) Anion Gap 12 mmol/L (5-15) 8 mmol/L (5-15) Blood Urea Nitrogen 12 mg/dL (7-18) 13 mg/dL (7-18) Creatinine 1.2 MG/DL (0.55-1.30) 1.1 MG/DL (0.55-1.30) Estimat Glomerular Filtration Rate mL/min (>60) mL/min (>60) Glucose Level 143 MG/DL (74-106) H 133 MG/DL (74-106) H Lactic Acid Level 2.20 mmol/L (0.4-2.0) H 1.10 mmol/L (0.66-2.22) Calcium Level 9.8 MG/DL (8.5-10.1) 9.2 MG/DL (8.5-10.1) Total Bilirubin 1.4 MG/DL (0.2-1.0) H Direct Bilirubin 0.2 MG/DL (0.0-0.3) Aspartate Amino Transf (AST/SGOT) 12 U/L (15-37) L Alanine Aminotransferase (ALT/SGPT) 15 U/L (12-78) Alkaline Phosphatase 103 U/L (46-116) Total Creatine Kinase 82 U/L (26-308) Creatine Kinase MB 0.7 NG/ML (0.0-3.6) Creatine Kinase MB Relative Index 0.8 Troponin I 0.085 ng/mL (0.000-0.056) 0.261 ng/mL (0.000-0.056) 0.308 ng/mL (0.000-0.056) Total Protein 8.2 G/DL (6.4-8.2) Albumin 3.7 G/DL (3.4-5.0) Globulin 4.5 g/dL Albumin/Globulin Ratio 0.8 (1.0-2.7) L Lipase 198 U/L (73-393) Test 05/09/19 11:48 05/09/19 12:06 05/09/19 14:20 Arterial Blood pH 7.407 (7.350-7.450) Arterial Blood Partial Pressure CO2 37.8 mmHg (35.0-45.0) Arterial Blood Partial Pressure O2 75.0 mmHg (75.0-100.0) Arterial Blood HCO3 23.3 mmol/L (22.0-26.0) Arterial Blood Oxygen Saturation 94.9 % (95-100) L Arterial Blood Base Excess -1.0 (-2-2) Parker Test Positive Activated Partial Thromboplast Time 39 SEC (23-33) H Pending D-Dimer 1.40 mg/L FEU (0.00-0.49) H White Blood Count Pending Red Blood Count Pending Hemoglobin Pending Hematocrit Pending Mean Corpuscular Volume Pending Mean Corpuscular Hemoglobin Pending Mean Corpuscular Hemoglobin Concent Pending Red Cell Distribution Width Pending Platelet Count Pending Mean Platelet Volume Pending Neutrophils (%) (Auto) Pending Lymphocytes (%) (Auto) Pending Monocytes (%) (Auto) Pending Eosinophils (%) (Auto) Pending Basophils (%) (Auto) Pending Troponin I Pending Thyroid Stimulating Hormone (TSH) Pending Free Thyroxine Pending Height (Feet): 5 Height (Inches): 9.00 Weight (Pounds): 180 Medications Current Medications Medications (Trade) Dose Ordered Sig/Gilbreto Route PRN Reason Start Time Stop Time Status Last Admin Dose Admin Allopurinol (Allopurinol) 300 mg DAILY ORAL 05/09/19 11:00 06/08/19 10:59 05/09/19 11:24 Aspirin (ASA) 81 mg DAILY ORAL 05/09/19 10:00 06/08/19 09:29 05/09/19 11:24 Atenolol (Tenormin) 25 mg DAILY ORAL 05/09/19 09:00 06/08/19 08:59 05/09/19 08:50 Atorvastatin Calcium (Lipitor) 40 mg BEDTIME ORAL 05/09/19 21:00 06/08/19 20:59 Ceftriaxone Sodium 1 gm/ Dextrose 55 ml @ 110 mls/hr Q24H IVPB 05/10/19 02:00 05/17/19 01:59 Heparin Sodium/ Dextrose 500 ml @ 19.595 mls/ hr ADJUST PER PROTOCOL IV 05/09/19 11:30 06/08/19 11:29 05/09/19 11:49 Iopamidol (Isovue-370 150ml) 150 ml NOW PRN INJ Radiology Procedure 05/09/19 14:30 05/11/19 14:25 Lisinopril (Zestril) 5 mg DAILY ORAL 05/09/19 11:00 06/08/19 10:59 05/09/19 11:24 Ondansetron HCl (Zofran) 4 mg Q6H PRN IVP Nausea & Vomiting 05/09/19 03:00 06/08/19 02:59 Pregabalin (Lyrica) 50 mg DAILY ORAL 05/09/19 11:00 06/08/19 10:59 05/09/19 11:24 Vitamin D (Vitamin D) 1,000 intlu DAILY ORAL 05/09/19 11:00 06/08/19 10:59 05/09/19 11:24 Assessment/Plan Problem List: (1) NSTEMI (non-ST elevated myocardial infarction) ICD Codes: I21.4 - Non-ST elevation (NSTEMI) myocardial infarction SNOMED: 25541068 (2) Hypoxemia ICD Codes: R09.02 - Hypoxemia SNOMED: 127973238 (3) Elevated d-dimer ICD Codes: R79.89 - Other specified abnormal findings of blood chemistry SNOMED: 371644487 (4) Tracheal deviation ICD Codes: J39.8 - Other specified diseases of upper respiratory tract SNOMED: 65388434 (5) Mediastinal mass ICD Codes: J98.59 - Other diseases of mediastinum, not elsewhere classified SNOMED: 42137706 (6) UTI (urinary tract infection) ICD Codes: N39.0 - Urinary tract infection, site not specified SNOMED: 62800803 (7) Weakness ICD Codes: R53.1 - Weakness SNOMED: 69805259 (8) NIDDY (non-insulin dependent diabetes mellitus in young) ICD Codes: E13.9 - Other specified diabetes mellitus without complications SNOMED: 274140355 (9) Hyperlipemia ICD Codes: E78.5 - Hyperlipidemia, unspecified SNOMED: 34267636 (10) Obesity ICD Codes: E66.9 - Obesity, unspecified SNOMED: 153662119, 292376343 (11) HTN (hypertension) ICD Codes: I10 - Essential (primary) hypertension SNOMED: 98009390 (12) Slurred speech ICD Codes: R47.81 - Slurred speech SNOMED: 547542638 Assessment/Plan: ABG CT-A Repeat ECG/trop F/U cards recs Duplex Medical management; DAPT, BB, statin, IVUD F/U TTE Optimize pulmonary hygiene/mobilize as tolerated Titrate O2 to keep SaO2 > 90% RTC and PRN HHN's Abx for UTI Will order an MRI brain given slurred speech DVT Px: A/C D/W RN @ bedside Fausto Mohan MD May 09, 2019 15:11
[2019-05-09] MEDS ORDERED: Albuterol/Ipratropium 3ml neb HHN PRN (15:15)
[2019-05-09 15:18] LABS: LYMPHOCYTES % (AUTO) 5.8 % (20.0-45.0); MONOCYTES % (AUTO) 3.9 % (1.0-10.0); NEUTROPHILS % (AUTO) 89.2 % (45.0-75.0)
[2019-05-09 17:11] LABS: APPEARANCE,URINE VERY CLOUDY; BILIRUBIN, URINE NEGATIVE (NEGATIVE); COLOR,URINE BROWN; GLUCOSE, URINE (UA) NEGATIVE (NEGATIVE); KETONES,URINE 3+ (NEGATIVE); LEUKOCYTE ESTERASE ,URINE 1+ (NEGATIVE); NITRITE,URINE NEGATIVE (NEGATIVE); PH,URINE 5 (4.5-8.0); PROTEIN,URINE 3+ (NEGATIVE); UROBILINOGEN,URINE 4 MG/DL (0.0-1.0)
[2019-05-09] MEDS ORDERED: Heparin 5000 units/ml inj IV SCH (17:27)
[2019-05-09] MEDS ORDERED: Isovue-300 100ml vial INJ PRN (18:00)
[2019-05-09] MEDS: Heparin 25,000u/D5W 500ml 500 ML IV SCH (18:03)
--- NOTE | 2019-05-09 18:25 | NUR ---
NURSE NOTES: ptt reported 53 heparin drip rate elevated to 14 u/kg (22.86 ml/hr/kg ) and ptt ordered for 8. @0000 per protocol will continue to monitor
--- NOTE | 2019-05-09 18:54 | NUR ---
NURSE NOTES: patient off the unit for CT scan ORDERED @ 1850 PM
--- NOTE | 2019-05-09 19:22 | NUR ---
HAND-OFF: Report given to BACOS RN.
--- NOTE | 2019-05-09 19:26 | NUR ---
DR. REEVES MADE AWARE OF UA RESULT WITH NO NEW ORDER.
--- NOTE | 2019-05-09 19:50 | NUR ---
NURSE NOTES: Received report from Marilynn BROWN. Patient is lying comfortable in bed appearing to be in no distress at this time. Heparin drip is infusing with IV site clean, intact, an patent. Bed is in lowest position with call light within reach. Will continue to monitor and follow plan of care.
[2019-05-09] MEDS: Albuterol/Ipratropium 3ml neb HHN SCH (19:51)
--- NOTE | 2019-05-09 19:53 | NUR ---
HAND-OFF: Report given to DONNY RN BACOS RN DID NOT COMFORTABLE TO HAVE PATIENT WITH HEPARIN GTT.
[2019-05-09] MEDS: Atorvastatin 80mg tab ORAL SCH (21:09)
[2019-05-10] VITALS: BP 132/75
[2019-05-10] MEDS: Albuterol/Ipratropium 3ml neb HHN SCH ×4 (01:35→19:52)
[2019-05-10] MEDS: cefTRIAXone 1 GM in D5W 55 ML IVPB SCH (02:00)
[2019-05-10 04:00] VITALS: BP 126/74
[2019-05-10 06:37] LABS: HEMATOCRIT 46.2 % (42.0-52.0); HEMOGLOBIN 15.1 G/DL (14.2-18.0); MEAN CORPUSCULAR VOLUME 79 FL (80-99); PLATELET COUNT 124 K/UL (150-450); RED BLOOD COUNT 5.89 M/UL (4.70-6.10); RED CELL DISTRIBUTION WIDTH 13.9 % (11.6-14.8); WHITE BLOOD COUNT 7.9 K/UL (4.8-10.8)
[2019-05-10 06:59] LABS: ANION GAP 9 mmol/L (5-15); BLOOD UREA NITROGEN 15 mg/dL (7-18); CARBON DIOXIDE 24 MMOL/L (21-32); CHLORIDE 103 MMOL/L (98-107); POTASSIUM 3.7 MMOL/L (3.5-5.1); SODIUM 136 MMOL/L (136-145)
--- NOTE | 2019-05-10 07:05 | NUR ---
NURSE NOTES: Received report from STEPHANIE Mckeon. Patient is lying in bed. Patient is AAO x 4. Patient is on 2L NC. 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 Patient states mild headache that was consistent from yesterday. Heparin drip is infusing at 14 unit/kg/hour on left FA 20g. IV site clean, intact, an patent. Bed is in lowest position with call light within reach. Will continue to monitor and follow plan of care.
--- NOTE | 2019-05-10 07:19 | NUR ---
HAND-OFF: Report given to Skip BROWN.
--- NOTE | 2019-05-10 07:45 | NUR ---
CASE MANAGEMENT:REVIEW 05/10/19 SI: ACUTE HYPOXIA. NSTEMI. UTI TRACHEAL DEVIATION. MEDIASTINAL MASS 98.6 93 18 126/74 95% ON 2L/NC PLT-124 TROPONIN(+) 0.192 IS:HEPARIN GTT IV ROCEPHIN Q24 DUONEB HHN Q6HRS LISINOPRIL PO QD ASA PO QD ATENOLOL PO QD : TELEMETRY STATUS DCP: FROM HOME PLAN: STRESS TEST WHEN STABLE R/O PULMONARY EMBOLI
[2019-05-10 08:00] VITALS: BP 140/73
[2019-05-10] MEDS ORDERED: Gadavist 7.5mMol/7.5ml vial IV PRN (08:15)
--- NOTE | 2019-05-10 08:16 | Pulmonology Progress Note ---
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 DVT Px: A/C Subjective Allergies: Coded Allergies: No Known Allergies (Verified , 09/09/11) Subjective AFVSS on 2L No F/C, no CP, no SOB, no cough Objective Last 24 Hour Vital Signs Date Time Temp Pulse Resp B/P (MAP) Pulse Ox O2 Delivery O2 Flow Rate FiO2 05/10/19 08:09 79 20 98 Nasal Cannula 2.0 28 05/10/19 08:00 78 20 92 Nasal Cannula 2.0 28 05/10/19 07:59 92 Nasal Cannula 2.0 28 05/10/19 04:00 98.6 93 18 126/74 (91) 95 05/10/19 04:00 89 05/10/19 01:54 86 20 93 Nasal Cannula 2.0 28 05/10/19 01:35 84 20 94 Nasal Cannula 2.0 28 05/10/19 00:00 98.4 85 18 132/75 (94) 96 05/10/19 00:00 91 05/09/19 21:00 Nasal Cannula 2.0 05/09/19 20:01 90 20 94 Nasal Cannula 2.0 28 05/09/19 20:00 98.2 81 18 110/66 (81) 95 05/09/19 20:00 84 05/09/19 19:51 87 20 93 Nasal Cannula 2.0 28 05/09/19 19:51 94 Nasal Cannula 3.0 32 05/09/19 18:41 98.2 05/09/19 16:00 99.0 85 22 120/67 (84) 95 05/09/19 16:00 86 05/09/19 12:11 183/111 05/09/19 12:11 85 181/111 05/09/19 12:00 100.0 93 22 183/111 (135) 95 05/09/19 12:00 88 05/09/19 11:24 130/83 05/09/19 10:17 Nasal Cannula 2.0 05/09/19 08:50 98.3 93 20 130/83 (99) 97 05/09/19 08:50 88 114/69 Intake and Output 05/09/19 05/10/19 18:59 06:59 Intake Total 240 ml Output Total 400 ml 350 ml Balance -160 ml -350 ml Intake Oral 240 ml Output Urine Total 400 ml 350 ml General Appearance: WD/WN, no acute distress HEENT: normocephalic, atraumatic, anicteric, mucous membranes moist Respiratory/Chest: chest wall non-tender, lungs clear, normal breath sounds, no respiratory distress, no accessory muscle use Cardiovascular: normal peripheral pulses, normal rate, regular rhythm Abdomen: normal bowel sounds, soft, non tender, no organomegaly, non distended , no mass Extremities: no cyanosis, no clubbing, no edema Microbiology Date/Time Source Procedure Growth Status 05/08/19 21:55 Blood Blood Culture - Preliminary NO GROWTH AFTER 24 HOURS Resulted 05/08/19 21:50 Blood Blood Culture - Preliminary NO GROWTH AFTER 24 HOURS Resulted Laboratory Tests 05/09/19 09:35: Troponin I 0.308H 05/09/19 11:48: Arterial Blood pH 7.407, Arterial Blood Partial Pressure CO2 37.8, Arterial Blood Partial Pressure O2 75.0, Arterial Blood HCO3 23.3, Arterial Blood Oxygen Saturation 94.9L, Arterial Blood Base Excess -1.0, Parker Test Positive 05/09/19 12:06: Activated Partial Thromboplast Time 39H, D-Dimer 1.40H 05/09/19 14:20: Troponin I 0.366H, Activated Partial Thromboplast Time 49H, White Blood Count 11.0H, Red Blood Count 6.45H, Hemoglobin 16.3, Hematocrit 49.1, Mean Corpuscular Volume 76L, Mean Corpuscular Hemoglobin 25.2L, Mean Corpuscular Hemoglobin Concent 33.1, Red Cell Distribution Width 15.6H, Platelet Count 117L , Mean Platelet Volume 6.4L, Neutrophils (%) (Auto) 89.2H, Lymphocytes (%) (Auto ) 5.8L, Monocytes (%) (Auto) 3.9, Eosinophils (%) (Auto) 0.0, Basophils (%) ( Auto) 1.0, Thyroid Stimulating Hormone (TSH) 0.146L, Free Thyroxine 1.09 05/09/19 15:20: Urine Color Brown, Urine Appearance Very cloudy, Urine pH 5, Urine Specific [place] 1.020, Urine Protein 3+H, Urine Glucose (UA) Negative, Urine Ketones 3+H , Urine Blood 5+H, Urine Nitrite Negative, Urine Bilirubin Negative, Urine Urobilinogen 4H, Urine Leukocyte Esterase 1+H, Urine RBC TntcH, Urine WBC 10-15H , Urine Squamous Epithelial Cells Occasional, Urine Bacteria ModerateH 05/09/19 17:09: Activated Partial Thromboplast Time 53H 05/09/19 20:15: Troponin I 0.293H 05/10/19 00:05: Activated Partial Thromboplast Time 81H 05/10/19 02:00: Troponin I 0.192H 05/10/19 06:08: White Blood Count 7.9, Red Blood Count 5.89, Hemoglobin 15.1, Hematocrit 46.2, Mean Corpuscular Volume 79L, Mean Corpuscular Hemoglobin 25.6L, Mean Corpuscular Hemoglobin Concent 32.6, Red Cell Distribution Width 13.9, Platelet Count 124L, Mean Platelet Volume 8.0, Neutrophils (%) (Auto) , Lymphocytes (%) ( Auto) , Monocytes (%) (Auto) , Eosinophils (%) (Auto) , Basophils (%) (Auto) , Neutrophils % (Manual) [Pending], Lymphocytes % (Manual) [Pending], Platelet Estimate [Pending], Platelet Morphology [Pending], Activated Partial Thromboplast Time 77H, Sodium Level 136, Potassium Level 3.7, Chloride Level 103 , Carbon Dioxide Level 24, Anion Gap 9, Blood Urea Nitrogen 15, Creatinine 1.0, Estimat Glomerular Filtration Rate , Glucose Level 133H, Calcium Level 9.0 05/10/19 07:52: Troponin I [Pending] Current Medications Medications (Trade) Dose Ordered Sig/Gilberto Route PRN Reason Start Time Stop Time Status Last Admin Dose Admin Acetaminophen (Tylenol) 650 mg Q6H PRN ORAL Mild Pain/Temp > 100.5 05/09/19 18:00 06/08/19 17:59 05/09/19 18:11 Albuterol/ Ipratropium (Albuterol/ Ipratropium) 3 ml Q4H PRN HHN Shortness of Breath 05/09/19 15:15 05/14/19 15:14 Albuterol/ Ipratropium (Albuterol/ Ipratropium) 3 ml Q6HRT HHN 05/09/19 19:00 05/14/19 18:59 05/10/19 08:03 Allopurinol (Allopurinol) 300 mg DAILY ORAL 05/09/19 11:00 06/08/19 10:59 05/09/19 11:24 Aspirin (ASA) 81 mg DAILY ORAL 05/09/19 10:00 06/08/19 09:29 05/09/19 11:24 Atenolol (Tenormin) 25 mg DAILY ORAL 05/09/19 09:00 06/08/19 08:59 05/09/19 08:50 Atorvastatin Calcium (Lipitor) 40 mg BEDTIME ORAL 05/09/19 21:00 06/08/19 20:59 05/09/19 21:09 Barium Sulfate (Readi-Cat 2) 450 ml NOW PRN ORAL Radiology Procedure 05/09/19 18:00 05/11/19 17:59 Ceftriaxone Sodium 1 gm/ Dextrose 55 ml @ 110 mls/hr Q24H IVPB 05/10/19 02:00 05/17/19 01:59 05/10/19 02:00 Heparin Sodium/ Dextrose 500 ml @ 22.861 mls/ hr ADJUST PER PROTOCOL IV 05/09/19 17:27 06/08/19 17:26 05/09/19 18:03 Iopamidol (Isovue-300 100ml) 100 ml NOW PRN INJ Radiology Procedure 05/09/19 18:00 05/10/19 17:59 Iopamidol (Isovue-370 150ml) 150 ml NOW PRN INJ Radiology Procedure 05/09/19 14:30 05/11/19 14:25 Lisinopril (Zestril) 5 mg DAILY ORAL 05/09/19 11:00 06/08/19 10:59 05/09/19 11:24 Ondansetron HCl (Zofran) 4 mg Q6H PRN IVP Nausea & Vomiting 05/09/19 03:00 06/08/19 02:59 Pregabalin (Lyrica) 50 mg DAILY ORAL 05/09/19 11:00 06/08/19 10:59 05/09/19 11:24 Vitamin D (Vitamin D) 1,000 intlu DAILY ORAL 05/09/19 11:00 06/08/19 10:59 05/09/19 11:24 Fausto Mohan MD May 10, 2019 08:16
--- NOTE | 2019-05-10 08:40 | NUR ---
NURSE NOTES: 8:21am Troponin is 0.349. 8:31am- Called Dr. Gallardo service- states he is at [facility] 8:40am- Notified Dr. Garland of lab value.
[2019-05-10] MEDS: Lyrica 50mg cap ORAL SCH (08:45)
[2019-05-10] MEDS: Aspirin Baby 81mg ORAL SCH (08:46)
[2019-05-10] MEDS: Atenolol 25mg tab ORAL SCH (08:46)
[2019-05-10] MEDS: Vitamin D 1000 IU Tab ORAL SCH (08:46)
[2019-05-10] MEDS: Lisinopril 10mg tab ORAL SCH (08:46)
--- NOTE | 2019-05-10 10:12 | General Progress Note ---
Assessment/Plan Assessment/Plan: 78-year-old male with past medical history of hypertension, smoking history, dyslipidemia, diabetes 2. #Acute hypoxia DDX: PE, ACS -Symptoms improved -Pulmonology consult, appreciate recs -Serial troponins and EKGs, reviewed -Chest x-ray reviewed: Small left pleural effusion and paratracheal mass with left tracheal deviation -Follow-up CTA chest to rule out PE and further evaluate mass and pleural effusion, completed follow-up results -Continue current medications -Patient baseline O2 2 L nasal cannula #Elevated troponin: NSTEMI, versus troponin leak from demand ischemia -Cardiology consult, appreciate recs -EKGs reviewed no ST elevation or T wave inversions -Troponins reviewed, and steadily trending up: 0.3 -Heparin drip -Continue beta-stefanie, aspirin, statin, DEVIN inhibitor -Status post 300 mg Plavix -Follow-up echo -Continue Nitropatch -Blood pressure control #Paratracheal mass -Seen on chest x-ray -Follow-up CTA chest, CT abdomen pelvis #Slurred speech, eval for CVA -Neurology consult not available -Follow-up brain MRI without contrast -Follow-up carotid ultrasound, and echo as above -PT OT #Hypertensive urgency, now resolved -Continue home medications and adjust as necessary #UTI -Continue Rocephin -Follow-up culture and sensitivity #Diabetes type 2 -Check A1c -Accu-Cheks q. before meals nightly -Patient takes metformin at home, hold while in hospital #Dyslipidemia -Fasting lipid panel in a.m. -Continue statin FULL code. Time of note may not reflect time of patient encounter. Subjective Date patient seen: May 10, 2019 Allergies: Coded Allergies: No Known Allergies (Verified , 09/09/11) All Systems: reviewed and negative except above Subjective Blood pressure is better controlled today. Patient states he feels much better than yesterday. Back on baseline oxygen of 2 L. Denies any shortness of breath or chest pain. Admits to history obtained by pulmonology of slurred speech and ataxia for several days. Admits to weakness. Objective Last 24 Hour Vital Signs Date Time Temp Pulse Resp B/P (MAP) Pulse Ox O2 Delivery O2 Flow Rate FiO2 05/10/19 08:46 140/73 05/10/19 08:46 79 140/73 05/10/19 08:09 79 20 98 Nasal Cannula 2.0 28 05/10/19 08:00 78 20 92 Nasal Cannula 2.0 28 05/10/19 08:00 98.1 81 18 140/73 (95) 94 05/10/19 07:59 92 Nasal Cannula 2.0 28 05/10/19 07:42 79 05/10/19 04:00 98.6 93 18 126/74 (91) 95 05/10/19 04:00 89 05/10/19 01:54 86 20 93 Nasal Cannula 2.0 28 05/10/19 01:35 84 20 94 Nasal Cannula 2.0 28 05/10/19 00:00 98.4 85 18 132/75 (94) 96 05/10/19 00:00 91 05/09/19 21:00 Nasal Cannula 2.0 05/09/19 20:01 90 20 94 Nasal Cannula 2.0 28 05/09/19 20:00 98.2 81 18 110/66 (81) 95 05/09/19 20:00 84 05/09/19 19:51 87 20 93 Nasal Cannula 2.0 28 05/09/19 19:51 94 Nasal Cannula 3.0 32 05/09/19 18:41 98.2 05/09/19 16:00 99.0 85 22 120/67 (84) 95 05/09/19 16:00 86 05/09/19 12:11 183/111 05/09/19 12:11 85 181/111 05/09/19 12:00 100.0 93 22 183/111 (135) 95 05/09/19 12:00 88 05/09/19 11:24 130/83 05/09/19 10:17 Nasal Cannula 2.0 Intake and Output 05/09/19 05/10/19 18:59 06:59 Intake Total 240 ml Output Total 400 ml 350 ml Balance -160 ml -350 ml Intake Oral 240 ml Output Urine Total 400 ml 350 ml Laboratory Tests 05/09/19 11:48: Arterial Blood pH 7.407, Arterial Blood Partial Pressure CO2 37.8, Arterial Blood Partial Pressure O2 75.0, Arterial Blood HCO3 23.3, Arterial Blood Oxygen Saturation 94.9L, Arterial Blood Base Excess -1.0, Parker Test Positive 05/09/19 12:06: Activated Partial Thromboplast Time 39H, D-Dimer 1.40H 05/09/19 14:20: Activated Partial Thromboplast Time 49H, White Blood Count 11.0H, Red Blood Count 6.45H, Hemoglobin 16.3, Hematocrit 49.1, Mean Corpuscular Volume 76L, Mean Corpuscular Hemoglobin 25.2L, Mean Corpuscular Hemoglobin Concent 33.1, Red Cell Distribution Width 15.6H, Platelet Count 117L, Mean Platelet Volume 6.4L, Neutrophils (%) (Auto) 89.2H, Lymphocytes (%) (Auto) 5.8L, Monocytes (%) ( Auto) 3.9, Eosinophils (%) (Auto) 0.0, Basophils (%) (Auto) 1.0, Troponin I 0.366H, Thyroid Stimulating Hormone (TSH) 0.146L, Free Thyroxine 1.09 05/09/19 15:20: Urine Color Brown, Urine Appearance Very cloudy, Urine pH 5, Urine Specific [place] 1.020, Urine Protein 3+H, Urine Glucose (UA) Negative, Urine Ketones 3+H , Urine Blood 5+H, Urine Nitrite Negative, Urine Bilirubin Negative, Urine Urobilinogen 4H, Urine Leukocyte Esterase 1+H, Urine RBC TntcH, Urine WBC 10-15H , Urine Squamous Epithelial Cells Occasional, Urine Bacteria ModerateH 05/09/19 17:09: Activated Partial Thromboplast Time 53H 05/09/19 20:15: Troponin I 0.293H 05/10/19 00:05: Activated Partial Thromboplast Time 81H 05/10/19 02:00: Troponin I 0.192H 05/10/19 06:08: White Blood Count 7.9, Red Blood Count 5.89, Hemoglobin 15.1, Hematocrit 46.2, Mean Corpuscular Volume 79L, Mean Corpuscular Hemoglobin 25.6L, Mean Corpuscular Hemoglobin Concent 32.6, Red Cell Distribution Width 13.9, Platelet Count 124L, Mean Platelet Volume 8.0, Neutrophils (%) (Auto) , Lymphocytes (%) ( Auto) , Monocytes (%) (Auto) , Eosinophils (%) (Auto) , Basophils (%) (Auto) , Differential Total Cells Counted 100, Neutrophils % (Manual) 86H, Lymphocytes % (Manual) 6L, Monocytes % (Manual) 8, Eosinophils % (Manual) 0, Basophils % ( Manual) 0, Band Neutrophils 0, Platelet Estimate DecreasedL, Platelet Morphology Normal, Red Blood Cell Morphology Normal, Activated Partial Thromboplast Time 77H, Sodium Level 136, Potassium Level 3.7, Chloride Level 103 , Carbon Dioxide Level 24, Anion Gap 9, Blood Urea Nitrogen 15, Creatinine 1.0, Estimat Glomerular Filtration Rate , Glucose Level 133H, Calcium Level 9.0 05/10/19 07:52: Troponin I 0.349H Height (Feet): 5 Height (Inches): 9.00 Weight (Pounds): 180 Objective GENERAL: No acute distress, sitting comfortably, alert, nasal cannula HEENT: NCAT, non-icteric eyes, pupils PERRLA Neck: No cervical lymphadenopathy, trachea midline CV: Regular rate and rhythm, no murmurs rubs or gallops RESP: Clear to auscultation bilaterally, no wheezes/rhonchi/crackles EXT: Normal muscle tone NEURO: No obvious deficits, alert and oriented x3 Adri Garland DO May 10, 2019 10:12
--- NOTE | 2019-05-10 10:43 | Diagnostic Imaging Report ---
Clinical Indication: Abdominal pain and nausea Technique: Patient ingested oral contrast. IV administration nonionic contrast. Venous phase spiral acquisition obtained through the abdomen and pelvis. Multiplanar reconstructions were generated. Total dose length product 1586.46 mGycm. CTDIvol(s) 25.3,14.15 mGy. Dose reduction achieved using automated exposure control Comparison: none Findings: There is colonic diverticulosis. No evidence of diverticulitis. The appendix is normal. Contrast is only seen within the colon and not the small bowel or stomach. No small bowel distention. Distal esophagus, stomach, duodenum are unremarkable. No free or loculated intraperitoneal gas or fluid is evident. There is a small left inguinal hernia which contains only fat. There is extensive bilateral perinephric fluid and fat stranding. No renal or ureteral calculi, hydronephrosis, or hydroureter. Normal renal parenchymal contrast opacification is noted. There are bilateral renal cysts. The liver, gallbladder, bile ducts, pancreas are unremarkable. The spleen demonstrates granulomatous calcifications. The adrenals are unremarkable. Soft plaque is seen within the wall of the proximal abdominal aorta. This does not result in any significant narrowing. There is a small fusiform aneurysm of the infrarenal abdominal aorta which measures up to 3.5 cm diameter. 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 There is unusual decreased contrast opacification of the right common iliac artery, which does not necessarily appear completely occluded but demonstrates low attenuation within the lumen. The bones demonstrate mild degenerative spondylosis changes. The included lung bases demonstrate atelectatic changes bilaterally. A calcified granuloma is seen at the left lung base. Impression: Fairly extensive bilateral perinephric fluid and fat stranding, without evidence of obstructive uropathy or renal parenchymal likely. Possibly chronic but acute inflammation possible. Correlate with clinical and laboratory findings. 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 Could indicate occlusive disease although appearance is not typical for such. There could also be nonocclusive intraluminal thrombus or atherosclerotic plaquing. Doppler studies or dedicated CT angiography may be useful for better characterization Colonic diverticulosis. No evidence of diverticulitis Other findings as noted, including old granulomatous disease within the left lung and spleen, degenerative spondylosis, bilateral renal cysts, small fat-containing left inguinal hernia The CT scanner at [facility] is accredited by the [employer] and the scans are performed using protocols designed to limit radiation exposure to as low as reasonably achievable to attain images of sufficient resolution adequate for diagnostic evaluation.
[2019-05-10] MEDS: Heparin 25,000u/D5W 500ml 500 ML IV SCH (10:47)
--- NOTE | 2019-05-10 10:55 | NUR ---
PT NOTE Received MD order for PT evaluation, medical record reviewed. Patient had CTA chest to R/O PE and duplex scan to R/O DVT. Will wait for results prior to initiating PT evaluation. Skip BROWN notified, will follow.
--- NOTE | 2019-05-10 11:17 | Diagnostic Imaging Report ---
ndication: Shortness of breath, mediastinal mass demonstrated on prior chest radiograph, hypoxia Technique: IV administration nonionic contrast. Spiral acquisitions obtained from the lung bases to the lung apices. Multiplanar and 3-D reconstructions were generated. Total dose length product 1586.46 mGycm. CTDIvol(s) 25.3,14.15 mGy. Dose reduction achieved using automated exposure control Comparison: none Findings: Pulmonary arteries are well-opacified. No intraluminal filling defects to suggest acute pulmonary embolus are demonstrated. No pulmonary arterial dilatation or right ventricular dilatation demonstrated. No evidence of thoracic aortic aneurysm or dissection. Normal caliber and normal branching great neck vessels. The thyroid is markedly abnormal. In particular, the right lobe is massively enlarged, measuring 4.7 cm transverse by 6.4 cm AP by at least 9 cm craniocaudad; note that the upper pole is excluded from imaging volume. The right lobe is diffusely heterogeneous without discrete mass being demonstrated. The isthmus and left lobe are likewise enlarged, less so than the right lobe, and diffusely heterogeneous a large right lobe results in displacement of the trachea to the left. It does not result in any significant tracheal narrowing, however. The lungs are diffusely hyperinflated. This is particularly striking in the upper lobes bilaterally. Atelectatic changes of the lower lobes are noted, as well as possibly some scarring. A calcified granuloma is seen in the inferior left lower lobe. No other nodules. No masses, infiltrates, or effusions are demonstrated. The heart size is upper limits of normal. No pericardial effusion. There are fairly extensive coronary artery calcifications. Granulomatous calcifications are seen in the left hilar and subcarinal lymph nodes. No mediastinal lymphadenopathy demonstrated. No axillary or chest wall lymphadenopathy. The bones demonstrate degenerative spondylosis changes. Please refer to separate CT abdomen and pelvis report for discussion of the upper abdominal anatomy Impression: Markedly abnormal thyroid, with diffuse heterogeneity and massive enlargement, consistent with multinodular goiter. The right lobe is particularly enlarged, measuring 4.7 x 6.4 by at least 9 cm, and displaces the trachea to the left. This accounts for the abnormality described on prior chest radiographs No evidence of acute pulmonary embolus or other acute thoracic vascular pathology Evidence of COPD Bilateral basilar atelectasis and possibly scarring Old granulomatous calcified nodule in the left lower lobe. There are calcified granulomatous mediastinal lymph nodes as well. Coronary artery calcifications Incidental finding of degenerative spondylosis changes. The CT scanner at [facility] is accredited by the [employer] and the scans are performed using protocols designed to limit radiation exposure to as low as reasonably achievable to attain images of sufficient resolution adequate for diagnostic evaluation.
[2019-05-10 12:00] VITALS: BP 133/64
--- NOTE | 2019-05-10 12:41 | Diagnostic Imaging Report ---
Indication: Slurred speech Technique: sagittal T1 fast spin echo, axial T1 FLAIR, axial T2 FLAIR, axial T2 FS PROPELLER, axial T2* GRE, axial diffusion weighted images. ADC and exponential ADC maps generated Comparison: none Findings: No abnormal areas of restricted diffusion to suggest acute infarction. No acute hemorrhage or edema. No mass effect nor midline shift. There is mild age-related enlargement of the ventricles and extra axial CSF spaces. There are scattered punctate foci of high T2 signal in the deep white matter which are nonspecific.. Visualized orbits and sinuses are unremarkable. There is evidence of left mastoid effusion. The vascular flow voids are preserved. Impression: Mild age-related volume loss Minimal nonspecific periventricular deep white matter T2 hyperintensities, may be foci of chronic microvascular ischemic change Negative for acute intracranial bleed, mass effect, or infarct
--- NOTE | 2019-05-10 13:25 | Cardiology Report ---
APPROVED REPORT EXAM: Two-dimensional and M-mode echocardiogram with Doppler and color Doppler. INDICATION Chest Pain M-Mode DIMENSIONS IVSd1.3 (0.7-1.1cm)Left Atrium (MM)3.7 (1.6-4.0cm) LVDd5.1 (3.5-5.6cm)Aortic Root2.8 (2.0-3.7cm) PWd0.9 (0.7-1.1cm)Aortic Cusp Exc.2.0 (1.5-2.0cm) LVDs3.9 (2.5-4.0cm) PWs1.5 cm Technically difficult study due to poor acoustic windows. Study quality precludes accurate assessment of regional wall motion. Normal left ventricular chamber size, systolic function and wall motion. Left ventricular ejection fraction estimated to be 55 %. Mild left ventricular hypertrophy. Anterior Echo-free space, may be due to pericardial fat or effusion. All other cardiac chamber sizes are within normal limits. Focal aortic valve sclerosis with adequate cusp excursion. Mildly thickened mitral valve leaflets with normal excursion. Mild mitral annulus and aortic root calcification. Pulmonic valve not well visualized. Normal tricuspid valve structure. IVC is normal in size with physiological collapse. A color flow and spectral Doppler study was performed and revealed: Mild aortic regurgitation. Trace mitral regurgitation. Mitral diastolic velocities suggest mild left ventricular diastolic dysfunction (Grade I). Mild tricuspid regurgitation. Tricuspid systolic velocities suggests peak right ventricular systolic pressure of 54 mmHg, consistent with moderate pulmonary hypertension. No pulmonic regurgitation present.
--- NOTE | 2019-05-10 14:27 | NUR ---
SPEECH PATHOLOGY: BEDSIDE SWALLOW EVALUATION COMPLETED POST CHART REVIEW AND INTERVIEW WITH STEPHANIE PAVON. PER POLST: FULL TREATMENT DYSPHAGIA RISK FACTORS FOR THIS 78 YEAR OLD MALE: HX OF MEDIASTINAL MASS/ PARATRACHEAL MASS, INTERMITTENT PERSISTENT INCIDENTS OF SLURRED SPEECH. INITIAL IMPRESSIONS: WHEN PRESENTED WITH P.O. AMOUNTS OF PUREE VIA SPOON, PATIENT PRESENTS WITH CONSISTENT INITIATORY DELAY IN INITIATION OF ORAL PHASE OF SWALLOW. CLEAR UPPER AIRWAY SOUNDS PRE AND POST SWALLOW. HE DENIED ANY DIFFICULTY WITH SWALLOWING, BUT HIS PRESENTATION OF MILD/MOD OROPHARYNGEAL DYSPHAGIA SUGGESTS NEED FOR FURTHER ASSESSMENT/VIDEO SWALLOW STUDY. RECOMMENDATIONS: 1. ST FOLLOWUP/MANAGEMENT 2. CONTINUE CURRENT DIET 3. VIDEO SWALLOW STUDY 4. MEALTIME PRECAUTIONS PENDING FINDINGS OF VIDWO SWALLOW STUDY THANK YOU FOR THIS REFERRAL.
[2019-05-10 16:00] VITALS: BP 118/58
--- NOTE | 2019-05-10 16:01 | Hematology/Onc Progress Note ---
Assessment/Plan Assessment/Plan ASSESSMENT AND RECS # Thrombocytopenia - potential causes multifactorial, evaluate liver and viral etiologies to begin, also could be related to underlying medications patient has received. --> Hep panel and HIV ordered --> US abd to evaluate for cirrhosis and hsm ordered --> Peripheral smear ordered to evaluate for blasts /schistocytes --> abx and other meds have been reviewed --> ok for ppx if plt >50k w/ either heparin or lovenox --> Transfuse if Plt < 20k and fever, or if Plt < 10k without fever #Paratracheal mass --> seen on cxr -->ct a/p reviewed and no mass is noted # Acute hypoxia DDX: PE, ACS --> Pulmonology consult, appreciate recs --> Continue current medications # Elevated troponin: NSTEMI, versus troponin leak from demand ischemia --> per cards recs # Hypertensive urgency, now resolved --> continue home medications and adjust as necessary # Diabetes type 2 --> Check A1c --> Accu-Cheks q. before meals nightly --> Patient takes metformin at home, hold while in hospital # Dyslipidemia --> continue statin, asa The timing of this note does not necessarily reflect the time of the patient was seen. GREATLY APPRECIATE CONSULTATION. Subjective Allergies: Coded Allergies: No Known Allergies (Verified , 09/09/11) Subjective 05/10: no events, no bleeding, no night sweats, imaging reviewed Objective Objective Current Medications Medications (Trade) Dose Ordered Sig/Gilberto Route PRN Reason Start Time Stop Time Status Last Admin Dose Admin Acetaminophen (Tylenol) 650 mg Q6H PRN ORAL Mild Pain/Temp > 100.5 05/09/19 18:00 06/08/19 17:59 05/10/19 08:45 Albuterol/ Ipratropium (Albuterol/ Ipratropium) 3 ml Q4H PRN HHN Shortness of Breath 05/09/19 15:15 05/14/19 15:14 Albuterol/ Ipratropium (Albuterol/ Ipratropium) 3 ml Q6HRT HHN 05/09/19 19:00 05/14/19 18:59 05/10/19 13:42 Allopurinol (Allopurinol) 300 mg DAILY ORAL 05/09/19 11:00 06/08/19 10:59 05/09/19 11:24 Aspirin (ASA) 81 mg DAILY ORAL 05/09/19 10:00 06/08/19 09:29 05/10/19 08:46 Atenolol (Tenormin) 25 mg DAILY ORAL 05/09/19 09:00 06/08/19 08:59 05/10/19 08:46 Atorvastatin Calcium (Lipitor) 40 mg BEDTIME ORAL 05/09/19 21:00 06/08/19 20:59 05/09/19 21:09 Barium Sulfate (Readi-Cat 2) 450 ml NOW PRN ORAL Radiology Procedure 05/09/19 18:00 05/11/19 17:59 Ceftriaxone Sodium 1 gm/ Dextrose 55 ml @ 110 mls/hr Q24H IVPB 05/10/19 02:00 05/17/19 01:59 05/10/19 02:00 Gadobutrol (Gadavist) 7.5 mmol NOW PRN IV Radiology Procedure 05/10/19 08:15 05/14/19 08:13 Heparin Sodium/ Dextrose 500 ml @ 22.861 mls/ hr ADJUST PER PROTOCOL IV 05/09/19 17:27 06/08/19 17:26 05/10/19 10:47 Iopamidol (Isovue-300 100ml) 100 ml NOW PRN INJ Radiology Procedure 05/09/19 18:00 05/10/19 17:59 Iopamidol (Isovue-370 150ml) 150 ml NOW PRN INJ Radiology Procedure 05/09/19 14:30 05/11/19 14:25 Lisinopril (Zestril) 5 mg DAILY ORAL 05/09/19 11:00 06/08/19 10:59 05/10/19 08:46 Ondansetron HCl (Zofran) 4 mg Q6H PRN IVP Nausea & Vomiting 05/09/19 03:00 06/08/19 02:59 Pregabalin (Lyrica) 50 mg DAILY ORAL 05/09/19 11:00 06/08/19 10:59 05/10/19 08:45 Vitamin D (Vitamin D) 1,000 intlu DAILY ORAL 05/09/19 11:00 06/08/19 10:59 05/10/19 08:46 Last 24 Hour Vital Signs Date Time Temp Pulse Resp B/P (MAP) Pulse Ox O2 Delivery O2 Flow Rate FiO2 05/10/19 13:51 71 20 97 Nasal Cannula 2.0 28 05/10/19 13:39 69 20 93 Nasal Cannula 2.0 28 05/10/19 12:00 97.4 71 18 133/64 (87) 95 05/10/19 11:48 70 05/10/19 09:15 98.1 05/10/19 09:00 Nasal Cannula 2.0 05/10/19 08:46 140/73 05/10/19 08:46 79 140/73 05/10/19 08:09 79 20 98 Nasal Cannula 2.0 28 05/10/19 08:00 78 20 92 Nasal Cannula 2.0 28 05/10/19 08:00 98.1 81 18 140/73 (95) 94 05/10/19 07:59 92 Nasal Cannula 2.0 28 05/10/19 07:42 79 05/10/19 04:00 98.6 93 18 126/74 (91) 95 05/10/19 04:00 89 05/10/19 01:54 86 20 93 Nasal Cannula 2.0 28 05/10/19 01:35 84 20 94 Nasal Cannula 2.0 28 05/10/19 00:00 98.4 85 18 132/75 (94) 96 05/10/19 00:00 91 05/09/19 21:00 Nasal Cannula 2.0 05/09/19 20:01 90 20 94 Nasal Cannula 2.0 28 05/09/19 20:00 98.2 81 18 110/66 (81) 95 05/09/19 20:00 84 05/09/19 19:51 87 20 93 Nasal Cannula 2.0 28 05/09/19 19:51 94 Nasal Cannula 3.0 32 05/09/19 16:00 99.0 85 22 120/67 (84) 95 05/09/19 16:00 86 05/09/19 12:11 183/111 05/09/19 12:11 85 181/111 05/09/19 12:00 100.0 93 22 183/111 (135) 95 05/09/19 12:00 88 05/09/19 11:24 130/83 05/09/19 10:17 Nasal Cannula 2.0 05/09/19 08:50 98.3 93 20 130/83 (99) 97 05/09/19 08:50 88 114/69 05/09/19 08:00 81 05/09/19 04:00 2.0 05/09/19 04:00 88 05/09/19 04:00 96.6 82 18 114/69 (84) 97 05/09/19 02:50 96 Nasal Cannula 2.0 28 05/09/19 02:14 Nasal Cannula 2.0 05/09/19 02:02 96 05/09/19 02:00 98.2 95 18 128/66 (86) 95 05/09/19 01:50 99.5 98 18 137/70 98 Nasal Cannula 2.0 05/09/19 00:00 99.1 93 16 136/86 96 Nasal Cannula 2.0 05/08/19 22:55 98.8 96 20 132/75 98 Nasal Cannula 2.0 05/08/19 21:55 108 24 Room Air 05/08/19 21:55 98.2 108 24 130/70 89 Room Air 05/08/19 21:33 98.2 109 18 133/76 (95) 83 Room Air Intake and Output 05/09/19 05/10/19 19:00 07:00 Intake Total 240 ml 22.861 ml Output Total 400 ml 350 ml Balance -160 ml -327.139 ml Intake Oral 240 ml IV Total 22.861 ml Output Urine Total 400 ml 350 ml Labs Test 05/08/19 21:50 05/08/19 23:50 05/09/19 05:50 05/09/19 09:35 White Blood Count 11.7 K/UL (4.8-10.8) Red Blood Count 6.39 M/UL (4.70-6.10) Hemoglobin 16.7 G/DL (14.2-18.0) Hematocrit 49.2 % (42.0-52.0) Mean Corpuscular Volume 77 FL (80-99) Mean Corpuscular Hemoglobin 26.1 PG (27.0-31.0) Mean Corpuscular Hemoglobin Concent 33.9 G/DL (32.0-36.0) Red Cell Distribution Width 13.2 % (11.6-14.8) Platelet Count 129 K/UL (150-450) Mean Platelet Volume 7.4 FL (6.5-10.1) Neutrophils (%) (Auto) 92.4 % (45.0-75.0) Lymphocytes (%) (Auto) 3.1 % (20.0-45.0) Monocytes (%) (Auto) 3.6 % (1.0-10.0) Eosinophils (%) (Auto) 0.0 % (0.0-3.0) Basophils (%) (Auto) 0.9 % (0.0-2.0) Urine Color Yellow Urine Appearance Slightly cloudy Urine pH 5 (4.5-8.0) Urine Specific [place] 1.015 (1.005-1.035) Urine Protein 3+ (NEGATIVE) Urine Glucose (UA) Negative (NEGATIVE) Urine Ketones 3+ (NEGATIVE) Urine Blood 5+ (NEGATIVE) Urine Nitrite Negative (NEGATIVE) Urine Bilirubin Negative (NEGATIVE) Urine Urobilinogen 1 MG/DL (0.0-1.0) Urine Leukocyte Esterase 3+ (NEGATIVE) Urine RBC Tntc /HPF (0 - 0) Urine WBC Tntc /HPF (0 - 0) Urine Squamous Epithelial Cells None /LPF (NONE/OCC) Urine Bacteria Moderate /HPF (NONE) Sodium Level 140 MMOL/L (136-145) 138 MMOL/L (136-145) Potassium Level 3.4 MMOL/L (3.5-5.1) 3.9 MMOL/L (3.5-5.1) Chloride Level 103 MMOL/L (98-107) 106 MMOL/L (98-107) Carbon Dioxide Level 25 MMOL/L (21-32) 24 MMOL/L (21-32) Anion Gap 12 mmol/L (5-15) 8 mmol/L (5-15) Blood Urea Nitrogen 12 mg/dL (7-18) 13 mg/dL (7-18) Creatinine 1.2 MG/DL (0.55-1.30) 1.1 MG/DL (0.55-1.30) Estimat Glomerular Filtration Rate mL/min (>60) mL/min (>60) Glucose Level 143 MG/DL (74-106) 133 MG/DL (74-106) Lactic Acid Level 2.20 mmol/L (0.4-2.0) 1.10 mmol/L (0.66-2.22) Calcium Level 9.8 MG/DL (8.5-10.1) 9.2 MG/DL (8.5-10.1) Total Bilirubin 1.4 MG/DL (0.2-1.0) Direct Bilirubin 0.2 MG/DL (0.0-0.3) Aspartate Amino Transf (AST/SGOT) 12 U/L (15-37) Alanine Aminotransferase (ALT/SGPT) 15 U/L (12-78) Alkaline Phosphatase 103 U/L (46-116) Total Creatine Kinase 82 U/L (26-308) Creatine Kinase MB 0.7 NG/ML (0.0-3.6) Creatine Kinase MB Relative Index 0.8 Troponin I 0.085 ng/mL (0.000-0.056) 0.261 ng/mL (0.000-0.056) 0.308 ng/mL (0.000-0.056) Total Protein 8.2 G/DL (6.4-8.2) Albumin 3.7 G/DL (3.4-5.0) Globulin 4.5 g/dL Albumin/Globulin Ratio 0.8 (1.0-2.7) Lipase 198 U/L (73-393) Test 05/09/19 11:48 05/09/19 12:06 05/09/19 14:20 05/09/19 15:20 Arterial Blood pH 7.407 (7.350-7.450) Arterial Blood Partial Pressure CO2 37.8 mmHg (35.0-45.0) Arterial Blood Partial Pressure O2 75.0 mmHg (75.0-100.0) Arterial Blood HCO3 23.3 mmol/L (22.0-26.0) Arterial Blood Oxygen Saturation 94.9 % (95-100) Arterial Blood Base Excess -1.0 (-2-2) Parker Test Positive Activated Partial Thromboplast Time 39 SEC (23-33) 49 SEC (23-33) D-Dimer 1.40 mg/L FEU (0.00-0.49) White Blood Count 11.0 K/UL (4.8-10.8) Red Blood Count 6.45 M/UL (4.70-6.10) Hemoglobin 16.3 G/DL (14.2-18.0) Hematocrit 49.1 % (42.0-52.0) Mean Corpuscular Volume 76 FL (80-99) Mean Corpuscular Hemoglobin 25.2 PG (27.0-31.0) Mean Corpuscular Hemoglobin Concent 33.1 G/DL (32.0-36.0) Red Cell Distribution Width 15.6 % (11.6-14.8) Platelet Count 117 K/UL (150-450) Mean Platelet Volume 6.4 FL (6.5-10.1) Neutrophils (%) (Auto) 89.2 % (45.0-75.0) Lymphocytes (%) (Auto) 5.8 % (20.0-45.0) Monocytes (%) (Auto) 3.9 % (1.0-10.0) Eosinophils (%) (Auto) 0.0 % (0.0-3.0) Basophils (%) (Auto) 1.0 % (0.0-2.0) Troponin I 0.366 ng/mL (0.000-0.056) Thyroid Stimulating Hormone (TSH) 0.146 uiU/mL (0.358-3.740) Free Thyroxine 1.09 NG/DL (0.76-1.46) Urine Color Brown Urine Appearance Very cloudy Urine pH 5 (4.5-8.0) Urine Specific [place] 1.020 (1.005-1.035) Urine Protein 3+ (NEGATIVE) Urine Glucose (UA) Negative (NEGATIVE) Urine Ketones 3+ (NEGATIVE) Urine Blood 5+ (NEGATIVE) Urine Nitrite Negative (NEGATIVE) Urine Bilirubin Negative (NEGATIVE) Urine Urobilinogen 4 MG/DL (0.0-1.0) Urine Leukocyte Esterase 1+ (NEGATIVE) Urine RBC Tntc /HPF (0 - 0) Urine WBC 10-15 /HPF (0 - 0) Urine Squamous Epithelial Cells Occasional /LPF Urine Bacteria Moderate /HPF (NONE) Test 05/09/19 17:09 05/09/19 20:15 05/10/19 00:05 05/10/19 02:00 Activated Partial Thromboplast Time 53 SEC (23-33) 81 SEC (23-33) Troponin I 0.293 ng/mL (0.000-0.056) 0.192 ng/mL (0.000-0.056) Test 05/10/19 06:08 05/10/19 07:52 05/10/19 14:10 White Blood Count 7.9 K/UL (4.8-10.8) Red Blood Count 5.89 M/UL (4.70-6.10) Hemoglobin 15.1 G/DL (14.2-18.0) Hematocrit 46.2 % (42.0-52.0) Mean Corpuscular Volume 79 FL (80-99) Mean Corpuscular Hemoglobin 25.6 PG (27.0-31.0) Mean Corpuscular Hemoglobin Concent 32.6 G/DL (32.0-36.0) Red Cell Distribution Width 13.9 % (11.6-14.8) Platelet Count 124 K/UL (150-450) Mean Platelet Volume 8.0 FL (6.5-10.1) Neutrophils (%) (Auto) % (45.0-75.0) Lymphocytes (%) (Auto) % (20.0-45.0) Monocytes (%) (Auto) % (1.0-10.0) Eosinophils (%) (Auto) % (0.0-3.0) Basophils (%) (Auto) % (0.0-2.0) Differential Total Cells Counted 100 Neutrophils % (Manual) 86 % (45-75) Lymphocytes % (Manual) 6 % (20-45) Monocytes % (Manual) 8 % (1-10) Eosinophils % (Manual) 0 % (0-3) Basophils % (Manual) 0 % (0-2) Band Neutrophils 0 % (0-8) Platelet Estimate Decreased Platelet Morphology Normal Red Blood Cell Morphology Normal Activated Partial Thromboplast Time 77 SEC (23-33) Sodium Level 136 MMOL/L (136-145) Potassium Level 3.7 MMOL/L (3.5-5.1) Chloride Level 103 MMOL/L (98-107) Carbon Dioxide Level 24 MMOL/L (21-32) Anion Gap 9 mmol/L (5-15) Blood Urea Nitrogen 15 mg/dL (7-18) Creatinine 1.0 MG/DL (0.55-1.30) Estimat Glomerular Filtration Rate mL/min (>60) Glucose Level 133 MG/DL (74-106) Calcium Level 9.0 MG/DL (8.5-10.1) Troponin I 0.349 ng/mL (0.000-0.056) 0.249 ng/mL (0.000-0.056) Height (Feet): 5 Height (Inches): 9.00 Weight (Pounds): 180 Mickey Borja MD May 10, 2019 16:01
--- NOTE | 2019-05-10 19:57 | NUR ---
HAND-OFF: Report given to STEPHANIE Hayes. Went over Heparin Drip IV and next ptt is 4am 05/10/19.
[2019-05-10 20:00] VITALS: BP 149/70
--- NOTE | 2019-05-10 20:00 | NUR ---
NURSE NOTES: Got report from Skip BROWN. Pt in stable condition. Denies any pain. No s/s of distress or discomfort noted. Pt resting in bed comfortably. Bed in low and locked position, call light within reach, bedside table within reach. Continue to monitor.
[2019-05-10] MEDS: Atorvastatin 80mg tab ORAL SCH (20:59)
[2019-05-11] VITALS: BP 142/72
[2019-05-11] MEDS: Albuterol/Ipratropium 3ml neb HHN SCH ×4 (01:36→19:43)
[2019-05-11] MEDS: cefTRIAXone 1 GM in D5W 55 ML IVPB SCH (02:19)
[2019-05-11 04:00] VITALS: BP 133/53
[2019-05-11 04:28] LABS: BASOPHILS % (AUTO) 0.6 % (0.0-2.0); EOSINOPHILS % (AUTO) 0.3 % (0.0-3.0); HEMOGLOBIN 15.4 G/DL (14.2-18.0); LYMPHOCYTES % (AUTO) 10.7 % (20.0-45.0); MEAN CORPUSCULAR VOLUME 78 FL (80-99); MONOCYTES % (AUTO) 11.6 % (1.0-10.0); NEUTROPHILS % (AUTO) 76.7 % (45.0-75.0); PLATELET COUNT 115 K/UL (150-450); RED BLOOD COUNT 5.91 M/UL (4.70-6.10); RED CELL DISTRIBUTION WIDTH 13.5 % (11.6-14.8); WHITE BLOOD COUNT 5.3 K/UL (4.8-10.8)
[2019-05-11 05:52] LABS: ANION GAP 6 mmol/L (5-15); BLOOD UREA NITROGEN 16 mg/dL (7-18); CALCIUM 9.1 MG/DL (8.5-10.1); CARBON DIOXIDE 26 MMOL/L (21-32); CHLORIDE 102 MMOL/L (98-107); CREATININE 1.1 MG/DL (0.55-1.30); POTASSIUM 3.5 MMOL/L (3.5-5.1); SODIUM 134 MMOL/L (136-145)
[2019-05-11] MEDS: Heparin 25,000u/D5W 500ml 500 ML IV SCH ×2 (06:51→08:37)
--- NOTE | 2019-05-11 07:15 | NUR ---
HAND-OFF: Report given to Diamond BROWN. Endorsed plan of care.
--- NOTE | 2019-05-11 07:31 | NUR ---
NURSE NOTES: Report received from STEPHANIE Hayes. Pt shows no signs of distress, A+Ox4, denies pain/SOB and says he is feeling a lot better today. Pt is sitting up eating breakfast. Respirations are even and unlabored on 2 L NC. IV site is intact, patent, and running heparin drip @ prescribed rate. Bed is at lowest position, brakes engaged, siderails x2, bed alarm on, and call light within reach. Pt is in stable condition at this time; will continue to monitor.
[2019-05-11 08:00] VITALS: BP 152/74
[2019-05-11] MEDS: Vitamin D 1000 IU Tab ORAL SCH (08:35)
[2019-05-11] MEDS: Aspirin Baby 81mg ORAL SCH (08:35)
[2019-05-11] MEDS: Atenolol 25mg tab ORAL SCH (08:36)
[2019-05-11] MEDS: Lyrica 50mg cap ORAL SCH (08:36)
[2019-05-11] MEDS: Lisinopril 10mg tab ORAL SCH (08:36)
[2019-05-11 12:00] VITALS: BP 128/68
--- NOTE | 2019-05-11 12:17 | General Progress Note ---
Assessment/Plan Assessment/Plan: 78-year-old male with past medical history of hypertension, smoking history, dyslipidemia, diabetes 2. #Acute hypoxia DDX: PE, ACS, resolved -Symptoms improved -Pulmonology consult, appreciate recs -Serial troponins and EKGs, reviewed -Chest x-ray reviewed: Small left pleural effusion and paratracheal mass with left tracheal deviation -Follow-up CTA chest to rule out PE and further evaluate mass and pleural effusion, completed follow-up results -Continue current medications -Patient baseline O2 2 L nasal cannula #Elevated troponin: NSTEMI, versus troponin leak from demand ischemia -Cardiology consult, appreciate recs -EKGs reviewed no ST elevation or T wave inversions -Troponins reviewed, and steadily trending up: 0.3 -Heparin drip -Continue beta-stefanie, aspirin, statin, DEVIN inhibitor -Status post 300 mg Plavix -Follow-up echo: Reviewed -Continue Nitropatch -Blood pressure control #Likely pulmonary hypertension -PASP of 54 and echo -Pulmonology following #Paratracheal mass, tiny nodular goiter -Seen on chest x-ray -Follow-up thyroid ultrasound -Endocrinology consult tomorrow, appreciate recs -Thyroid function test reviewed #Slurred speech, eval for CVA -Neurology consult not available -Follow-up brain MRI without contrast-no acute stroke -Follow-up carotid ultrasound, and echo as above, echo as above follow-up carotid ultrasound -PT OT #Hypertensive urgency, now resolved -Continue home medications and adjust as necessary #UTI -Continue Rocephin -Follow-up culture and sensitivity -Pansensitive E. coli change to p.o. antibiotics #Diabetes type 2 -Check A1c -Accu-Cheks q. before meals nightly -Patient takes metformin at home, hold while in hospital #Dyslipidemia -Fasting lipid panel in a.m. -Continue statin FULL code. Time of note may not reflect time of patient encounter. Subjective Date patient seen: May 11, 2019 Allergies: Coded Allergies: No Known Allergies (Verified , 09/09/11) Subjective Patient doing well this morning denies any shortness of breath or chest pain. Patient denies any dysphasia, occasionally admits to dysphonia. Objective Last 24 Hour Vital Signs Date Time Temp Pulse Resp B/P (MAP) Pulse Ox O2 Delivery O2 Flow Rate FiO2 05/11/19 12:00 97.7 71 18 128/68 (88) 96 05/11/19 09:00 Nasal Cannula 2.0 05/11/19 08:36 152/74 05/11/19 08:36 73 152/74 05/11/19 08:00 98.1 73 20 152/74 (100) 95 05/11/19 08:00 77 05/11/19 07:01 95 Nasal Cannula 2.0 28 05/11/19 07:00 83 16 97 Nasal Cannula 2.0 28 89 16 95 05/11/19 04:00 98.3 72 18 133/53 (79) 95 05/11/19 04:00 79 05/11/19 01:37 77 18 96 Nasal Cannula 2.0 28 78 18 94 05/11/19 00:00 72 05/11/19 00:00 98.8 76 18 142/72 (95) 95 05/10/19 21:00 Nasal Cannula 2.0 05/10/19 20:11 78 20 94 Nasal Cannula 2.0 28 05/10/19 20:00 74 05/10/19 20:00 99.0 77 18 149/70 (96) 95 05/10/19 19:58 75 20 92 Nasal Cannula 2.0 28 05/10/19 19:58 78 20 94 Nasal Cannula 2.0 28 75 20 92 05/10/19 19:56 92 Nasal Cannula 2.0 28 05/10/19 19:53 75 20 92 Nasal Cannula 2.0 28 05/10/19 16:00 98.1 67 17 118/58 (78) 94 05/10/19 15:44 72 05/10/19 13:51 71 20 97 Nasal Cannula 2.0 28 05/10/19 13:39 69 20 93 Nasal Cannula 2.0 28 Intake and Output 05/10/19 05/11/19 18:59 06:59 Intake Total 691.444 ml Balance 691.444 ml IV Total 91.444 ml Other 600 ml # Voids 3 Laboratory Tests 05/10/19 14:10: Troponin I 0.249H 05/10/19 16:00: Activated Partial Thromboplast Time 67H, Hepatitis A IgM Antibody Negative, Hepatitis B Surface Antigen Negative, Hepatitis B Core IgM Antibody Negative, Hepatitis C Antibody <0.1 05/10/19 20:00: Troponin I 0.178H 05/11/19 04:10: Activated Partial Thromboplast Time 70H, White Blood Count 5.3, Red Blood Count 5.91, Hemoglobin 15.4, Hematocrit 46.0, Mean Corpuscular Volume 78L, Mean Corpuscular Hemoglobin 26.0L, Mean Corpuscular Hemoglobin Concent 33.4, Red Cell Distribution Width 13.5, Platelet Count 115L, Mean Platelet Volume 9.2, Neutrophils (%) (Auto) 76.7H, Lymphocytes (%) (Auto) 10.7L, Monocytes (%) (Auto ) 11.6H, Eosinophils (%) (Auto) 0.3, Basophils (%) (Auto) 0.6, Sodium Level 134L , Potassium Level 3.5, Chloride Level 102, Carbon Dioxide Level 26, Anion Gap 6 , Blood Urea Nitrogen 16, Creatinine 1.1, Estimat Glomerular Filtration Rate , Glucose Level 112H, Hemoglobin A1c 6.7H, Calcium Level 9.1 Height (Feet): 5 Height (Inches): 9.00 Weight (Pounds): 180 Objective GENERAL: No acute distress, sitting comfortably, alert, nasal cannula HEENT: NCAT, non-icteric eyes, pupils PERRLA Neck: Soft tissue swelling in the neck, no cervical lymphadenopathy no tenderness enlarged thyroid CV: Regular rate and rhythm, no murmurs rubs or gallops RESP: Clear to auscultation bilaterally, no wheezes/rhonchi/crackles EXT: Normal muscle tone NEURO: No obvious deficits, alert and oriented x3 Adri Garland DO May 11, 2019 12:17
[2019-05-11] MEDS: Bactrim-DS 1 tab ORAL SCH ×2 (13:13→20:52)
[2019-05-11 15:50] VITALS: BP 129/65
--- NOTE | 2019-05-11 17:15 | NUR ---
PT Note PT andreas completed, treatment initiated. Patient has muscle weakness, more on the LLE. He has unsteady gait making him at a high risk for falls. Patient needs PT to increase his muscle strength and balance to improve his functional mobility and gait. Addendum: 05/11/19 at 1716 by ALICE MAZARIEGOS PT Amended: Links added.
[2019-05-11] MEDS: Milk of Magnesia 30ml Ud ORAL PRN (17:29)
--- NOTE | 2019-05-11 19:24 | NUR ---
HAND-OFF: Report given to STEPHANIE Barbosa. Pt is in stable condition; plan of care endorsed.
--- NOTE | 2019-05-11 19:30 | NUR ---
NURSE NOTES: Received report from STEPHANIE Fields. Pt is awake and resting in bed. In no acute distress. Pt is on Heparin drip, no s/s of bleeding noted. Bed in lowest position, call light within reach. Will continue plan of care.
[2019-05-11 20:00] VITALS: BP 156/72
--- NOTE | 2019-05-11 20:44 | Pulmonology Progress Note ---
Assessment/Plan Assessment/Plan (1) NSTEMI (non-ST elevated myocardial infarction) (2) Hypoxemia (3) Elevated d-dimer (4) Tracheal deviation (5) Mediastinal mass (6) UTI (urinary tract infection) (7) Weakness (8) NIDDY (non-insulin dependent diabetes mellitus in young) (9) Hyperlipemia (10) Obesity (11) HTN (hypertension) (12) Slurred speech Assessment/Plan imaging reviewed no pe F/U cards rec Medical management; DAPT, BB, statin, IVUH Optimize pulmonary hygiene/mobilize as tolerated Titrate O2 to keep SaO2 > 90% RTC and PRN HHN's Abx for UTI PT/OT/[employer] DVT Px: A/C Subjective Constitutional: Reports: no symptoms HEENT: Repors: no symptoms Respiratory: Reports: no symptoms Cardiovascular: Reports: no symptoms Gastrointestinal/Abdominal: Reports: no symptoms Genitourinary: Reports: no symptoms Allergies: Coded Allergies: No Known Allergies (Verified , 09/09/11) Subjective doign well oob on o2 no fever no nv no cp no bleeding Objective Last 24 Hour Vital Signs Date Time Temp Pulse Resp B/P (MAP) Pulse Ox O2 Delivery O2 Flow Rate FiO2 05/11/19 19:44 79 18 97 Nasal Cannula 2.0 28 77 18 94 05/11/19 19:43 94 Nasal Cannula 2.0 28 05/11/19 16:00 70 05/11/19 15:50 97.8 72 20 129/65 (86) 95 05/11/19 13:04 79 16 98 Nasal Cannula 2.0 28 82 14 97 05/11/19 12:00 70 05/11/19 12:00 97.7 71 18 128/68 (88) 96 05/11/19 09:00 Nasal Cannula 2.0 05/11/19 08:36 152/74 05/11/19 08:36 73 152/74 05/11/19 08:00 98.1 73 20 152/74 (100) 95 05/11/19 08:00 77 05/11/19 07:01 95 Nasal Cannula 2.0 28 05/11/19 07:00 83 16 97 Nasal Cannula 2.0 28 89 16 95 05/11/19 04:00 98.3 72 18 133/53 (79) 95 05/11/19 04:00 79 05/11/19 01:37 77 18 96 Nasal Cannula 2.0 28 78 18 94 05/11/19 00:00 72 05/11/19 00:00 98.8 76 18 142/72 (95) 95 05/10/19 21:00 Nasal Cannula 2.0 Intake and Output 05/10/19 05/11/19 19:00 07:00 Intake Total 668.583 ml Balance 668.583 ml IV Total 68.583 ml Other 600 ml # Voids 3 General Appearance: WD/WN Respiratory/Chest: lungs clear, normal breath sounds Cardiovascular: normal rate, regular rhythm Abdomen: soft, non tender, no organomegaly Extremities: no cyanosis, no clubbing Skin: no lesions Neurologic/Psychiatric: abnormal gait, alert, oriented x 3, responsive Microbiology Date/Time Source Procedure Growth Status 05/08/19 21:55 Blood Blood Culture - Preliminary NO GROWTH AFTER 48 HOURS Resulted 05/08/19 21:50 Blood Blood Culture - Preliminary NO GROWTH AFTER 48 HOURS Resulted 05/09/19 15:20 Urine,Clean Catch Urine Culture - Preliminary NO GROWTH AFTER 24 HOURS Resulted 05/08/19 21:50 Urine,Clean Catch Urine Culture - Final Escherichia Coli Complete Laboratory Tests 05/11/19 04:10: White Blood Count 5.3, Red Blood Count 5.91, Hemoglobin 15.4, Hematocrit 46.0, Mean Corpuscular Volume 78L, Mean Corpuscular Hemoglobin 26.0L, Mean Corpuscular Hemoglobin Concent 33.4, Red Cell Distribution Width 13.5, Platelet Count 115L, Mean Platelet Volume 9.2, Neutrophils (%) (Auto) 76.7H, Lymphocytes (%) (Auto) 10.7L, Monocytes (%) (Auto) 11.6H, Eosinophils (%) (Auto) 0.3, Basophils (%) (Auto) 0.6, Activated Partial Thromboplast Time 70H, Sodium Level 134L, Potassium Level 3.5, Chloride Level 102, Carbon Dioxide Level 26, Anion Gap 6, Blood Urea Nitrogen 16, Creatinine 1.1, Estimat Glomerular Filtration Rate , Glucose Level 112H, Hemoglobin A1c 6.7H, Calcium Level 9.1 Current Medications Medications (Trade) Dose Ordered Sig/Gilberto Route PRN Reason Start Time Stop Time Status Last Admin Dose Admin Acetaminophen (Tylenol) 650 mg Q6H PRN ORAL Mild Pain/Temp > 100.5 05/09/19 18:00 06/08/19 17:59 05/10/19 08:45 Albuterol/ Ipratropium (Albuterol/ Ipratropium) 3 ml Q4H PRN HHN Shortness of Breath 05/09/19 15:15 05/14/19 15:14 Albuterol/ Ipratropium (Albuterol/ Ipratropium) 3 ml Q6HRT HHN 05/09/19 19:00 05/14/19 18:59 05/11/19 19:43 Allopurinol (Allopurinol) 300 mg DAILY ORAL 05/09/19 11:00 06/08/19 10:59 05/11/19 08:36 Aspirin (ASA) 81 mg DAILY ORAL 05/09/19 10:00 06/08/19 09:29 05/11/19 08:35 Atenolol (Tenormin) 25 mg DAILY ORAL 05/09/19 09:00 06/08/19 08:59 05/11/19 08:36 Atorvastatin Calcium (Lipitor) 40 mg BEDTIME ORAL 05/09/19 21:00 06/08/19 20:59 05/10/19 20:59 Gadobutrol (Gadavist) 7.5 mmol NOW PRN IV Radiology Procedure 05/10/19 08:15 05/14/19 08:13 Heparin Sodium/ Dextrose 500 ml @ 22.861 mls/ hr ADJUST PER PROTOCOL IV 05/09/19 17:27 06/08/19 17:26 05/11/19 08:37 Lisinopril (Zestril) 5 mg DAILY ORAL 05/09/19 11:00 06/08/19 10:59 05/11/19 08:36 Magnesium Hydroxide (Mom) 30 ml DAILYPRN PRN ORAL Constipation 05/11/19 17:15 06/10/19 17:14 05/11/19 17:29 Ondansetron HCl (Zofran) 4 mg Q6H PRN IVP Nausea & Vomiting 05/09/19 03:00 06/08/19 02:59 Pregabalin (Lyrica) 50 mg DAILY ORAL 05/09/19 11:00 06/08/19 10:59 05/11/19 08:36 Trimethoprim/ Sulfamethoxazole (Bactrim-DS) 1 tab TWICE A DAY ORAL 05/11/19 13:00 05/18/19 12:59 05/11/19 13:13 Vitamin D (Vitamin D) 1,000 intlu DAILY ORAL 05/09/19 11:00 06/08/19 10:59 05/11/19 08:35 Rina Bhandari DO May 11, 2019 20:44
[2019-05-11] MEDS: Atorvastatin 80mg tab ORAL SCH (20:55)
[2019-05-12] VITALS: BP 147/76
[2019-05-12] MEDS: Albuterol/Ipratropium 3ml neb HHN SCH ×3 (01:18→12:37)
[2019-05-12 04:00] VITALS: BP 142/90
--- NOTE | 2019-05-12 06:11 | NUR ---
NURSE NOTES: Spoke to [facility] Pharmacist regarding pt's PTT result. Notified Pharmacist that the pt's Heparin was possibly not running for a while before the PTT was drawn, and might have affected the PTT result. Pharmacist agreed to redraw PTT in an hour.
--- NOTE | 2019-05-12 07:16 | NUR ---
NURSE NOTES: Report received from STEPHANIE Barbosa. Pt shows no signs of distress, A+Ox4, denies pain/SOB. Respirations are even and unlabored on 2 L NC. IV site is intact, patent, and running heparin drip @ prescribed rate. Lab is redrawing PT to ensure proper lab value for change in heparin drip. Bed is at lowest position, brakes engaged, siderails x2, bed alarm on, and call light within reach. Pt is in stable condition at this time; will continue to monitor.
--- NOTE | 2019-05-12 07:16 | NUR ---
HAND-OFF: Report given to STEPHANIE Fields.
[2019-05-12 08:00] VITALS: BP 156/85
[2019-05-12] MEDS: Aspirin Baby 81mg ORAL SCH (08:26)
[2019-05-12] MEDS: Atenolol 25mg tab ORAL SCH (08:26)
[2019-05-12] MEDS: Vitamin D 1000 IU Tab ORAL SCH (08:27)
[2019-05-12] MEDS: Lyrica 50mg cap ORAL SCH (08:27)
[2019-05-12] MEDS: Bactrim-DS 1 tab ORAL SCH ×2 (08:27→17:06)
[2019-05-12] MEDS: Lisinopril 10mg tab ORAL SCH (08:29)
[2019-05-12] MEDS: Heparin 25,000u/D5W 500ml 500 ML IV SCH (08:29)
[2019-05-12] MEDS ORDERED: Heparin 5000 units/ml inj IV SCH (08:30)
--- NOTE | 2019-05-12 10:45 | Hematology/Onc Progress Note ---
Assessment/Plan Assessment/Plan ASSESSMENT AND RECS # Thrombocytopenia - potential causes multifactorial, evaluate liver and viral etiologies to begin, also could be related to underlying medications patient has received. can also be reactive process --> Hep panel and HIV ordered -> NEGATIVE --> US abd to evaluate for cirrhosis and hsm ordered and none noted --> Peripheral smear ordered to evaluate for blasts /schistocytes and none noted --> abx and other meds have been reviewed --> ok for ppx if plt >50k w/ either heparin or lovenox --> Transfuse if Plt < 20k and fever, or if Plt < 10k without fever --> okay for heparin gtt at this time # Paratracheal mass likely artifactual finding --> seen on cxr --> ct a/p reviewed and no mass is noted --> ct chest reviewed and none ntoed either # Acute hypoxia DDX: PE, ACS --> Pulmonology consult, appreciate recs --> Continue current medications # Elevated troponin: NSTEMI, versus troponin leak from demand ischemia --. okay for anticoag --> per cards recs # Hypertensive urgency, now resolved --> continue home medications and adjust as necessary # Diabetes type 2 --> A1c >8 goal --> Accu-Cheks q. before meals nightly --> Patient takes metformin at home, hold while in hospital # Dyslipidemia --> continue statin, asa # DVT ppx hep gtt The timing of this note does not necessarily reflect the time of the patient was seen. GREATLY APPRECIATE CONSULTATION. Subjective Constitutional: Denies: no symptoms, chills, fever, malaise, weakness, other HEENT: Denies: no symptoms, eye pain, blurred vision, tearing, double vision, ear pain, ear discharge, nose pain, nose congestion, throat pain, throat swelling, mouth pain, mouth swelling, other Respiratory: Denies: no symptoms, cough, shortness of breath, SOB with excertion, SOB at rest, sputum, wheezing, other Gastrointestinal/Abdominal: Denies: no symptoms, abdomen distended, abdominal pain, black stools, tarry stools, blood in stool, constipated, diarrhea, difficulty swallowing, nausea, poor appetite, poor fluid intake, rectal bleeding , vomiting, other Genitourinary: Denies: no symptoms, burning, discharge, frequency, flank pain, hematuria, incontinence, pain, urgency, other Neurologic/Psychiatric: Denies: no symptoms, anxiety, depressed, emotional problems, headache, numbness, paresthesia, pre-existing deficit, seizure, tingling, tremors, weakness, other Endocrine: Denies: no symptoms, excessive sweating, flushing, intolerance to cold, intolerance to heat, increased hunger, increased thirst, increased urine, unexplained weight gain, unexplained weight loss, other Allergies: Coded Allergies: No Known Allergies (Verified , 09/09/11) Subjective 05/10: no events, no bleeding, no night sweats, imaging reviewed 05/12: on 2l nc, on heparin gtt, breathing improved, no fc Objective Objective Current Medications Medications (Trade) Dose Ordered Sig/Gilberto Route PRN Reason Start Time Stop Time Status Last Admin Dose Admin Acetaminophen (Tylenol) 650 mg Q6H PRN ORAL Mild Pain/Temp > 100.5 05/09/19 18:00 06/08/19 17:59 05/12/19 03:54 Albuterol/ Ipratropium (Albuterol/ Ipratropium) 3 ml Q4H PRN HHN Shortness of Breath 05/09/19 15:15 05/14/19 15:14 Albuterol/ Ipratropium (Albuterol/ Ipratropium) 3 ml Q6HRT HHN 05/09/19 19:00 05/14/19 18:59 05/12/19 06:21 Allopurinol (Allopurinol) 300 mg DAILY ORAL 05/09/19 11:00 06/08/19 10:59 05/12/19 08:26 Aspirin (ASA) 81 mg DAILY ORAL 05/09/19 10:00 06/08/19 09:29 05/12/19 08:26 Atenolol (Tenormin) 25 mg DAILY ORAL 05/09/19 09:00 06/08/19 08:59 05/12/19 08:26 Atorvastatin Calcium (Lipitor) 40 mg BEDTIME ORAL 05/09/19 21:00 06/08/19 20:59 05/11/19 20:55 Gadobutrol (Gadavist) 7.5 mmol NOW PRN IV Radiology Procedure 05/10/19 08:15 05/14/19 08:13 Heparin Sodium/ Dextrose 500 ml @ 26.127 mls/ hr ADJUST PER PROTOCOL IV 05/12/19 08:30 06/11/19 08:29 05/12/19 08:29 Lisinopril (Zestril) 5 mg DAILY ORAL 05/09/19 11:00 06/08/19 10:59 05/12/19 08:29 Magnesium Hydroxide (Mom) 30 ml DAILYPRN PRN ORAL Constipation 05/11/19 17:15 06/10/19 17:14 05/11/19 17:29 Metformin HCl (Glucophage) 500 mg TIAC ORAL 05/12/19 11:30 06/11/19 11:29 Ondansetron HCl (Zofran) 4 mg Q6H PRN IVP Nausea & Vomiting 05/09/19 03:00 06/08/19 02:59 Pregabalin (Lyrica) 50 mg DAILY ORAL 05/09/19 11:00 06/08/19 10:59 05/12/19 08:27 Trimethoprim/ Sulfamethoxazole (Bactrim-DS) 1 tab TWICE A DAY ORAL 05/11/19 13:00 05/18/19 12:59 05/12/19 08:27 Vitamin D (Vitamin D) 1,000 intlu DAILY ORAL 05/09/19 11:00 06/08/19 10:59 05/12/19 08:27 Last 24 Hour Vital Signs Date Time Temp Pulse Resp B/P (MAP) Pulse Ox O2 Delivery O2 Flow Rate FiO2 05/12/19 09:00 Nasal Cannula 2.0 05/12/19 08:29 156/85 05/12/19 08:26 77 156/85 05/12/19 08:00 85 05/12/19 08:00 98.3 77 18 156/85 (108) 96 05/12/19 06:30 74 18 95 Room Air 2.0 28 05/12/19 06:30 95 Nasal Cannula 2.0 28 05/12/19 06:21 75 18 96 Nasal Cannula 2.0 28 72 18 95 05/12/19 04:00 77 05/12/19 04:00 98.1 77 20 142/90 (107) 96 05/12/19 01:18 81 18 96 Nasal Cannula 2.0 28 79 18 94 05/12/19 00:00 76 05/12/19 00:00 98.4 76 18 147/76 (99) 99 05/11/19 21:00 Nasal Cannula 2.0 05/11/19 20:00 79 05/11/19 20:00 98.9 79 18 156/72 (100) 96 05/11/19 19:44 79 18 97 Nasal Cannula 2.0 28 77 18 94 05/11/19 19:43 94 Nasal Cannula 2.0 28 05/11/19 16:00 70 05/11/19 15:50 97.8 72 20 129/65 (86) 95 05/11/19 13:04 79 16 98 Nasal Cannula 2.0 28 82 14 97 05/11/19 12:00 70 05/11/19 12:00 97.7 71 18 128/68 (88) 96 05/11/19 09:00 Nasal Cannula 2.0 05/11/19 08:36 152/74 05/11/19 08:36 73 152/74 05/11/19 08:00 98.1 73 20 152/74 (100) 95 05/11/19 08:00 77 05/11/19 07:01 95 Nasal Cannula 2.0 28 05/11/19 07:00 83 16 97 Nasal Cannula 2.0 28 89 16 95 05/11/19 04:00 98.3 72 18 133/53 (79) 95 05/11/19 04:00 79 05/11/19 01:37 77 18 96 Nasal Cannula 2.0 28 78 18 94 05/11/19 00:00 72 05/11/19 00:00 98.8 76 18 142/72 (95) 95 05/10/19 21:00 Nasal Cannula 2.0 05/10/19 20:11 78 20 94 Nasal Cannula 2.0 28 05/10/19 20:00 74 05/10/19 20:00 99.0 77 18 149/70 (96) 95 05/10/19 19:58 75 20 92 Nasal Cannula 2.0 28 05/10/19 19:58 78 20 94 Nasal Cannula 2.0 28 75 20 92 05/10/19 19:56 92 Nasal Cannula 2.0 28 05/10/19 19:53 75 20 92 Nasal Cannula 2.0 28 05/10/19 16:00 98.1 67 17 118/58 (78) 94 8/23/19 15:44 72 05/10/19 13:51 71 20 97 Nasal Cannula 2.0 28 05/10/19 13:39 69 20 93 Nasal Cannula 2.0 28 05/10/19 12:00 97.4 71 18 133/64 (87) 95 05/10/19 11:48 70 Intake and Output 05/11/19 05/12/19 19:00 07:00 Intake Total 708.610 ml 68.583 ml Output Total 700 ml 700 ml Balance 8.610 ml -631.417 ml Intake Oral 480 ml IV Total 228.610 ml 68.583 ml Output Urine Total 700 ml 700 ml # Voids 2 Labs Test 05/09/19 11:48 05/09/19 12:06 05/09/19 14:20 05/09/19 15:20 Arterial Blood pH 7.407 (7.350-7.450) Arterial Blood Partial Pressure CO2 37.8 mmHg (35.0-45.0) Arterial Blood Partial Pressure O2 75.0 mmHg (75.0-100.0) Arterial Blood HCO3 23.3 mmol/L (22.0-26.0) Arterial Blood Oxygen Saturation 94.9 % (95-100) Arterial Blood Base Excess -1.0 (-2-2) Parker Test Positive Activated Partial Thromboplast Time 39 SEC (23-33) 49 SEC (23-33) D-Dimer 1.40 mg/L FEU (0.00-0.49) White Blood Count 11.0 K/UL (4.8-10.8) Red Blood Count 6.45 M/UL (4.70-6.10) Hemoglobin 16.3 G/DL (14.2-18.0) Hematocrit 49.1 % (42.0-52.0) Mean Corpuscular Volume 76 FL (80-99) Mean Corpuscular Hemoglobin 25.2 PG (27.0-31.0) Mean Corpuscular Hemoglobin Concent 33.1 G/DL (32.0-36.0) Red Cell Distribution Width 15.6 % (11.6-14.8) Platelet Count 117 K/UL (150-450) Mean Platelet Volume 6.4 FL (6.5-10.1) Neutrophils (%) (Auto) 89.2 % (45.0-75.0) Lymphocytes (%) (Auto) 5.8 % (20.0-45.0) Monocytes (%) (Auto) 3.9 % (1.0-10.0) Eosinophils (%) (Auto) 0.0 % (0.0-3.0) Basophils (%) (Auto) 1.0 % (0.0-2.0) Troponin I 0.366 ng/mL (0.000-0.056) Thyroid Stimulating Hormone (TSH) 0.146 uiU/mL (0.358-3.740) Free Thyroxine 1.09 NG/DL (0.76-1.46) Urine Color Brown Urine Appearance Very cloudy Urine pH 5 (4.5-8.0) Urine Specific [place] 1.020 (1.005-1.035) Urine Protein 3+ (NEGATIVE) Urine Glucose (UA) Negative (NEGATIVE) Urine Ketones 3+ (NEGATIVE) Urine Blood 5+ (NEGATIVE) Urine Nitrite Negative (NEGATIVE) Urine Bilirubin Negative (NEGATIVE) Urine Urobilinogen 4 MG/DL (0.0-1.0) Urine Leukocyte Esterase 1+ (NEGATIVE) Urine RBC Tntc /HPF (0 - 0) Urine WBC 10-15 /HPF (0 - 0) Urine Squamous Epithelial Cells Occasional /LPF Urine Bacteria Moderate /HPF (NONE) Test 05/09/19 17:09 05/09/19 20:15 05/10/19 00:05 05/10/19 02:00 Activated Partial Thromboplast Time 53 SEC (23-33) 81 SEC (23-33) Troponin I 0.293 ng/mL (0.000-0.056) 0.192 ng/mL (0.000-0.056) Test 05/10/19 06:08 05/10/19 07:52 05/10/19 14:10 05/10/19 16:00 White Blood Count 7.9 K/UL (4.8-10.8) Red Blood Count 5.89 M/UL (4.70-6.10) Hemoglobin 15.1 G/DL (14.2-18.0) Hematocrit 46.2 % (42.0-52.0) Mean Corpuscular Volume 79 FL (80-99) Mean Corpuscular Hemoglobin 25.6 PG (27.0-31.0) Mean Corpuscular Hemoglobin Concent 32.6 G/DL (32.0-36.0) Red Cell Distribution Width 13.9 % (11.6-14.8) Platelet Count 124 K/UL (150-450) Mean Platelet Volume 8.0 FL (6.5-10.1) Neutrophils (%) (Auto) % (45.0-75.0) Lymphocytes (%) (Auto) % (20.0-45.0) Monocytes (%) (Auto) % (1.0-10.0) Eosinophils (%) (Auto) % (0.0-3.0) Basophils (%) (Auto) % (0.0-2.0) Differential Total Cells Counted 100 Neutrophils % (Manual) 86 % (45-75) Lymphocytes % (Manual) 6 % (20-45) Monocytes % (Manual) 8 % (1-10) Eosinophils % (Manual) 0 % (0-3) Basophils % (Manual) 0 % (0-2) Band Neutrophils 0 % (0-8) Platelet Estimate Decreased Platelet Morphology Normal Red Blood Cell Morphology Normal Activated Partial Thromboplast Time 77 SEC (23-33) 67 SEC (23-33) Sodium Level 136 MMOL/L (136-145) Potassium Level 3.7 MMOL/L (3.5-5.1) Chloride Level 103 MMOL/L (98-107) Carbon Dioxide Level 24 MMOL/L (21-32) Anion Gap 9 mmol/L (5-15) Blood Urea Nitrogen 15 mg/dL (7-18) Creatinine 1.0 MG/DL (0.55-1.30) Estimat Glomerular Filtration Rate mL/min (>60) Glucose Level 133 MG/DL (74-106) Calcium Level 9.0 MG/DL (8.5-10.1) HIV (1&2) Antibody Rapid Negative (NEGATIVE) Troponin I 0.349 ng/mL (0.000-0.056) 0.249 ng/mL (0.000-0.056) Hepatitis A IgM Antibody Negative (Negative) Hepatitis B Surface Antigen Negative (Negative) Hepatitis B Core IgM Antibody Negative (Negative) Hepatitis C Antibody <0.1 s/co ratio Test 05/10/19 20:00 05/11/19 04:10 05/12/19 04:10 05/12/19 07:15 Troponin I 0.178 ng/mL (0.000-0.056) White Blood Count 5.3 K/UL (4.8-10.8) Red Blood Count 5.91 M/UL (4.70-6.10) Hemoglobin 15.4 G/DL (14.2-18.0) Hematocrit 46.0 % (42.0-52.0) Mean Corpuscular Volume 78 FL (80-99) Mean Corpuscular Hemoglobin 26.0 PG (27.0-31.0) Mean Corpuscular Hemoglobin Concent 33.4 G/DL (32.0-36.0) Red Cell Distribution Width 13.5 % (11.6-14.8) Platelet Count 115 K/UL (150-450) Mean Platelet Volume 9.2 FL (6.5-10.1) Neutrophils (%) (Auto) 76.7 % (45.0-75.0) Lymphocytes (%) (Auto) 10.7 % (20.0-45.0) Monocytes (%) (Auto) 11.6 % (1.0-10.0) Eosinophils (%) (Auto) 0.3 % (0.0-3.0) Basophils (%) (Auto) 0.6 % (0.0-2.0) Activated Partial Thromboplast Time 70 SEC (23-33) 47 SEC (23-33) 51 SEC (23-33) Sodium Level 134 MMOL/L (136-145) Potassium Level 3.5 MMOL/L (3.5-5.1) Chloride Level 102 MMOL/L (98-107) Carbon Dioxide Level 26 MMOL/L (21-32) Anion Gap 6 mmol/L (5-15) Blood Urea Nitrogen 16 mg/dL (7-18) Creatinine 1.1 MG/DL (0.55-1.30) Estimat Glomerular Filtration Rate mL/min (>60) Glucose Level 112 MG/DL (74-106) Hemoglobin A1c 6.7 % (4.3-6.0) Calcium Level 9.1 MG/DL (8.5-10.1) Height (Feet): 5 Height (Inches): 9.00 Weight (Pounds): 180 Objective General Appearance: WD/WN Respiratory/Chest: lungs clear, normal breath sounds Cardiovascular: normal rate, regular rhythm Abdomen: soft, non tender, no organomegaly Extremities: no cyanosis, no clubbing Skin: no lesions Neurologic/Psychiatric: abnormal gait, alert, oriented x 3, responsive Mickey Borja MD May 12, 2019 10:45
--- NOTE | 2019-05-12 11:12 | General Progress Note ---
Assessment/Plan Assessment/Plan: 78-year-old male with past medical history of hypertension, smoking history, dyslipidemia, diabetes 2. #Acute hypoxia DDX: PE, ACS, resolved -Symptoms improved -Pulmonology consult, appreciate recs -Serial troponins and EKGs, reviewed -Chest x-ray reviewed: Small left pleural effusion and paratracheal mass with left tracheal deviation -Follow-up CTA chest to rule out PE and further evaluate mass and pleural effusion: reviewed -Continue current medications -Patient baseline O2 2 L nasal cannula #Elevated troponin: NSTEMI, versus troponin leak from demand ischemia -Cardiology consult, appreciate recs -EKGs reviewed no ST elevation or T wave inversions -Troponins reviewed, and steadily trending up: 0.3 -Heparin drip -> dc hep gtt? - outpatient f/u for stress test vs cath? -Continue beta-stefanie, aspirin, statin, DEVIN inhibitor -Status post 300 mg Plavix -Follow-up echo: Reviewed -Continue Nitropatch -Blood pressure control #Likely pulmonary hypertension -PASP of 54 and echo -Pulmonology following #Paratracheal mass, tiny nodular goiter -Seen on chest x-ray -Follow-up thyroid ultrasound -Endocrinology consult today, appreciate recs -Thyroid function test reviewed #Slurred speech, eval for CVA -Neurology consult not available -Follow-up brain MRI without contrast-no acute stroke -Follow-up carotid ultrasound, and echo as above, echo as above follow-up carotid ultrasound -PT OT #Hypertensive urgency, now resolved -Continue home medications and adjust as necessary - changed atenolol 25 mg daily to 50 mg daily #UTI -Continue Rocephin -Follow-up culture and sensitivity -Pansensitive E. coli changed to bactrim, continue until 05/16 #Diabetes type 2 -Check A1c:reviewed -Accu-Cheks q. before meals nightly -Patient takes metformin at home, hold while in hospital #Dyslipidemia -Fasting lipid: reviewed -Continue statin FULL code. Time of note may not reflect time of patient encounter. Subjective Date patient seen: May 12, 2019 Allergies: Coded Allergies: No Known Allergies (Verified , 09/09/11) All Systems: reviewed and negative except above Subjective Patient doing well this morning denies any shortness of breath or chest pain. bp up, meds changed. Objective Last 24 Hour Vital Signs Date Time Temp Pulse Resp B/P (MAP) Pulse Ox O2 Delivery O2 Flow Rate FiO2 05/12/19 09:00 Nasal Cannula 2.0 05/12/19 08:29 156/85 05/12/19 08:26 77 156/85 05/12/19 08:00 85 05/12/19 08:00 98.3 77 18 156/85 (108) 96 05/12/19 06:30 74 18 95 Room Air 2.0 28 05/12/19 06:30 95 Nasal Cannula 2.0 28 05/12/19 06:21 75 18 96 Nasal Cannula 2.0 28 72 18 95 05/12/19 04:00 77 05/12/19 04:00 98.1 77 20 142/90 (107) 96 05/12/19 01:18 81 18 96 Nasal Cannula 2.0 28 79 18 94 05/12/19 00:00 76 05/12/19 00:00 98.4 76 18 147/76 (99) 99 05/11/19 21:00 Nasal Cannula 2.0 05/11/19 20:00 79 05/11/19 20:00 98.9 79 18 156/72 (100) 96 05/11/19 19:44 79 18 97 Nasal Cannula 2.0 28 77 18 94 05/11/19 19:43 94 Nasal Cannula 2.0 28 05/11/19 16:00 70 05/11/19 15:50 97.8 72 20 129/65 (86) 95 05/11/19 13:04 79 16 98 Nasal Cannula 2.0 28 82 14 97 05/11/19 12:00 70 05/11/19 12:00 97.7 71 18 128/68 (88) 96 Intake and Output 05/11/19 05/12/19 19:00 07:00 Intake Total 708.610 ml 68.583 ml Output Total 700 ml 700 ml Balance 8.610 ml -631.417 ml Intake Oral 480 ml IV Total 228.610 ml 68.583 ml Output Urine Total 700 ml 700 ml # Voids 2 Laboratory Tests 05/12/19 04:10: Activated Partial Thromboplast Time 47H 05/12/19 07:15: Activated Partial Thromboplast Time 51H Height (Feet): 5 Height (Inches): 9.00 Weight (Pounds): 180 Objective GENERAL: No acute distress, sitting comfortably, alert, nasal cannula HEENT: NCAT, non-icteric eyes, pupils PERRLA Neck: Soft tissue swelling in the neck, no cervical lymphadenopathy no tenderness enlarged thyroid CV: Regular rate and rhythm, no murmurs rubs or gallops RESP: Clear to auscultation bilaterally, no wheezes/rhonchi/crackles EXT: Normal muscle tone NEURO: No obvious deficits, alert and oriented x3 Adri Garland DO May 12, 2019 11:12
[2019-05-12] MEDS ORDERED: Atenolol 25mg tab ORAL SCH (11:15)
[2019-05-12] MEDS: metFORMIN 500mg tab ORAL SCH ×2 (11:58→17:06)
[2019-05-12 12:00] VITALS: BP 127/68
--- NOTE | 2019-05-12 13:12 | Cardiology Report ---
APPROVED REPORT EKG Measurement Heart [id number] CT [id number] Normal sinus rhythm Normal ECG
[2019-05-12 16:00] VITALS: BP 132/63
--- NOTE | 2019-05-12 18:57 | Pulmonology Progress Note ---
Assessment/Plan Assessment/Plan (1) NSTEMI (non-ST elevated myocardial infarction) (2) Hypoxemia (3) Elevated d-dimer (4) Tracheal deviation (5) Mediastinal mass (6) UTI (urinary tract infection) (7) Weakness (8) NIDDY (non-insulin dependent diabetes mellitus in young) (9) Hyperlipemia (10) Obesity (11) HTN (hypertension) (12) Slurred speech Assessment/Plan imaging reviewed no pe F/U cards rec Medical management; DAPT, BB, statin, IVUH Optimize pulmonary hygiene/mobilize as tolerated Titrate O2 to keep SaO2 > 90% RTC and PRN HHN's Abx for UTI PT/OT/PROPERTY VALUER DVT Px: A/C Subjective HEENT: Repors: no symptoms Respiratory: Reports: no symptoms Cardiovascular: Reports: no symptoms Gastrointestinal/Abdominal: Reports: no symptoms Genitourinary: Reports: no symptoms Neurologic: Reports: no symptoms Allergies: Coded Allergies: No Known Allergies (Verified , 09/09/11) Subjective doing well oob on o2 no fever no nv no cp no bleeding w tolerating po Objective Last 24 Hour Vital Signs Date Time Temp Pulse Resp B/P (MAP) Pulse Ox O2 Delivery O2 Flow Rate FiO2 05/12/19 18:37 74 18 99 Nasal Cannula 2.0 28 70 18 96 05/12/19 18:37 70 18 96 Room Air 2.0 28 05/12/19 18:37 96 Nasal Cannula 2.0 28 05/12/19 16:00 97.9 74 18 132/63 (86) 93 05/12/19 16:00 77 05/12/19 12:38 60 18 99 Nasal Cannula 2.0 28 67 18 96 05/12/19 12:00 64 05/12/19 12:00 98.2 70 18 127/68 (87) 96 05/12/19 11:58 70 127/68 05/12/19 09:00 Nasal Cannula 2.0 05/12/19 08:29 156/85 05/12/19 08:26 77 156/85 05/12/19 08:00 85 05/12/19 08:00 98.3 77 18 156/85 (108) 96 05/12/19 06:30 74 18 95 Room Air 2.0 28 05/12/19 06:30 95 Nasal Cannula 2.0 28 05/12/19 06:21 75 18 96 Nasal Cannula 2.0 28 72 18 95 05/12/19 04:00 77 05/12/19 04:00 98.1 77 20 142/90 (107) 96 05/12/19 01:18 81 18 96 Nasal Cannula 2.0 28 79 18 94 05/12/19 00:00 76 05/12/19 00:00 98.4 76 18 147/76 (99) 99 05/11/19 21:00 Nasal Cannula 2.0 05/11/19 20:00 79 05/11/19 20:00 98.9 79 18 156/72 (100) 96 05/11/19 19:44 79 18 97 Nasal Cannula 2.0 28 77 18 94 05/11/19 19:43 94 Nasal Cannula 2.0 28 Intake and Output 05/11/19 05/12/19 18:59 06:59 Intake Total 708.610 ml 68.583 ml Output Total 700 ml 700 ml Balance 8.610 ml -631.417 ml Intake Oral 480 ml IV Total 228.610 ml 68.583 ml Output Urine Total 700 ml 700 ml # Voids 2 General Appearance: WD/WN Respiratory/Chest: lungs clear, normal breath sounds Cardiovascular: normal rate, regular rhythm Abdomen: soft, non tender, no organomegaly, no mass Skin: no rash Neurologic/Psychiatric: alert, oriented x 3, responsive Laboratory Tests 05/12/19 04:10: Activated Partial Thromboplast Time 47H 05/12/19 07:15: Activated Partial Thromboplast Time 51H 05/12/19 14:35: Activated Partial Thromboplast Time 65H Current Medications Medications (Trade) Dose Ordered Sig/Gilberto Route PRN Reason Start Time Stop Time Status Last Admin Dose Admin Acetaminophen (Tylenol) 650 mg Q6H PRN ORAL Mild Pain/Temp > 100.5 05/09/19 18:00 06/08/19 17:59 05/12/19 03:54 Albuterol/ Ipratropium (Albuterol/ Ipratropium) 3 ml Q4H PRN HHN Shortness of Breath 05/09/19 15:15 05/14/19 15:14 Albuterol/ Ipratropium (Albuterol/ Ipratropium) 3 ml Q6HRT HHN 05/09/19 19:00 05/14/19 18:59 05/12/19 12:37 Allopurinol (Allopurinol) 300 mg DAILY ORAL 05/09/19 11:00 06/08/19 10:59 05/12/19 08:26 Aspirin (ASA) 81 mg DAILY ORAL 05/09/19 10:00 06/08/19 09:29 05/12/19 08:26 Atenolol (Tenormin) 50 mg DAILY ORAL 05/13/19 09:00 06/12/19 08:59 Atorvastatin Calcium (Lipitor) 40 mg BEDTIME ORAL 05/09/19 21:00 06/08/19 20:59 05/11/19 20:55 Gadobutrol (Gadavist) 7.5 mmol NOW PRN IV Radiology Procedure 05/10/19 08:15 05/14/19 08:13 Heparin Sodium/ Dextrose 500 ml @ 26.127 mls/ hr ADJUST PER PROTOCOL IV 05/12/19 08:30 06/11/19 08:29 05/12/19 08:29 Lisinopril (Zestril) 5 mg DAILY ORAL 05/09/19 11:00 06/08/19 10:59 05/12/19 08:29 Magnesium Hydroxide (Mom) 30 ml DAILYPRN PRN ORAL Constipation 05/11/19 17:15 06/10/19 17:14 05/11/19 17:29 Metformin HCl (Glucophage) 500 mg TIAC ORAL 05/12/19 11:30 06/11/19 11:29 05/12/19 17:06 Ondansetron HCl (Zofran) 4 mg Q6H PRN IVP Nausea & Vomiting 05/09/19 03:00 06/08/19 02:59 Pregabalin (Lyrica) 50 mg DAILY ORAL 05/09/19 11:00 06/08/19 10:59 05/12/19 08:27 Trimethoprim/ Sulfamethoxazole (Bactrim-DS) 1 tab TWICE A DAY ORAL 05/11/19 13:00 05/18/19 12:59 05/12/19 17:06 Vitamin D (Vitamin D) 1,000 intlu DAILY ORAL 05/09/19 11:00 06/08/19 10:59 05/12/19 08:27 Rina Bhandari DO May 12, 2019 18:57
--- NOTE | 2019-05-12 19:10 | NUR ---
NURSE NOTES: Received pt and report from STEPHANIE Fields. Observed pt resting in bed and watching television. Pt is A/Ox4. monitor worker is in placed, IV site intact, asymptomatic, and patent; currently running Heparin drip @ 16 units/kg/hr (rate: 26.127cc/hr). No bleeding noted. Bed is in the lowest position and locked. Call light within reach. No signs/symptoms of acute distress noted at this time. Will continue plan of care.
--- NOTE | 2019-05-12 19:17 | NUR ---
HAND-OFF: Report given to STEPHANIE Carlin. Pt is in stable condition; plan of care endorsed.
[2019-05-12 20:00] VITALS: BP 151/72
[2019-05-12] MEDS: Atorvastatin 80mg tab ORAL SCH (20:40)
[2019-05-13] VITALS: BP 156/72
[2019-05-13] MEDS: Albuterol/Ipratropium 3ml neb HHN SCH ×5 (00:33→19:00)
[2019-05-13 04:00] VITALS: BP 159/84
[2019-05-13 05:19] LABS: BASOPHILS % (AUTO) 1.7 % (0.0-2.0); EOSINOPHILS % (AUTO) 0.6 % (0.0-3.0); HEMATOCRIT 44.3 % (42.0-52.0); HEMOGLOBIN 14.5 G/DL (14.2-18.0); MEAN CORPUSCULAR VOLUME 78 FL (80-99); MONOCYTES % (AUTO) 13.4 % (1.0-10.0); NEUTROPHILS % (AUTO) 63.3 % (45.0-75.0); PLATELET COUNT 143 K/UL (150-450); RED BLOOD COUNT 5.67 M/UL (4.70-6.10); RED CELL DISTRIBUTION WIDTH 13.7 % (11.6-14.8); WHITE BLOOD COUNT 5.2 K/UL (4.8-10.8)
[2019-05-13 05:43] LABS: ANION GAP 7 mmol/L (5-15); BLOOD UREA NITROGEN 10 mg/dL (7-18); CALCIUM 9.2 MG/DL (8.5-10.1); CARBON DIOXIDE 28 MMOL/L (21-32); CHLORIDE 105 MMOL/L (98-107); CREATININE 1.1 MG/DL (0.55-1.30); POTASSIUM 3.6 MMOL/L (3.5-5.1); SODIUM 140 MMOL/L (136-145)
--- NOTE | 2019-05-13 05:57 | NUR ---
NURSE NOTES: PTT came back therapeutic at 77. [employer] pharmacistSvetlana ordered to continue current rate of 16 units/kg/hr (rate: 26.127cc/hr) and to order the next PTT for 05/14 AM.
[2019-05-13] MEDS: metFORMIN 500mg tab ORAL SCH ×3 (06:23→16:30)
--- NOTE | 2019-05-13 07:05 | NUR ---
NURSE NOTES: Received pt and report from SETPHANIE Carlin. Observed pt resting in bed. Pt is A/Ox4. manager monitoring is in placed, IV site intact, asymptomatic, and patent; currently running Heparin drip @ 16 units/kg/hr (rate: 26.127cc/hr). No bleeding noted. Bed is in the lowest position and locked. Call light within reach. No signs/symptoms of acute distress noted at this time. Will continue plan of care.
[2019-05-13] MEDS: Heparin 25,000u/D5W 500ml 500 ML IV SCH (07:09)
--- NOTE | 2019-05-13 07:23 | General Progress Note ---
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, unspecified SNOMED: 66360283 (2) Diabetes mellitus ICD Codes: E11.9 - Type 2 diabetes mellitus without complications SNOMED: 02624898 (3) NSTEMI (non-ST elevated myocardial infarction) ICD Codes: I21.4 - Non-ST elevation (NSTEMI) myocardial infarction SNOMED: 85974908 (4) Mediastinal mass ICD Codes: J98.59 - Other diseases of mediastinum, not elsewhere classified SNOMED: 03276747 (5) HTN (hypertension) ICD Codes: I10 - Essential (primary) hypertension SNOMED: 28877596 (6) Hyperlipemia ICD Codes: E78.5 - Hyperlipidemia, unspecified SNOMED: 10989621 (7) Subclinical hyperthyroidism ICD Codes: E05.90 - Thyrotoxicosis, unspecified without thyrotoxic crisis or storm SNOMED: 082412551 Assessment/Plan: no need to start anti thyroid medications he is a candidate for PHILLIPS uptake and scan follow by ablation as OP follow thyroid US results Subjective Allergies: Coded Allergies: No Known Allergies (Verified , 09/09/11) All Systems: reviewed and negative except above Subjective events noted glucose well controlled Item Value Date Time Bedside Blood Glucose 95 mg/dl 05/13/19 0630 Bedside Blood Glucose 103 mg/dl 05/12/19 2100 Bedside Blood Glucose 114 mg/dl 05/12/19 1630 Bedside Blood Glucose 91 mg/dl 05/12/19 1130 Bedside Blood Glucose 118 mg/dl 05/12/19 0630 Objective Last 24 Hour Vital Signs Date Time Temp Pulse Resp B/P (MAP) Pulse Ox O2 Delivery O2 Flow Rate FiO2 05/13/19 04:00 75 05/13/19 04:00 98.1 74 18 159/84 (109) 95 05/13/19 00:33 78 18 99 Nasal Cannula 2.0 28 60 16 95 05/13/19 00:00 98.7 76 19 156/72 (100) 94 05/13/19 00:00 79 05/12/19 21:00 Nasal Cannula 2.0 05/12/19 20:00 84 05/12/19 20:00 98.3 77 19 151/72 (98) 94 05/12/19 18:37 74 18 99 Nasal Cannula 2.0 28 70 18 96 05/12/19 18:37 70 18 96 Room Air 2.0 28 05/12/19 18:37 96 Nasal Cannula 2.0 28 05/12/19 16:00 97.9 74 18 132/63 (86) 93 05/12/19 16:00 77 05/12/19 12:38 60 18 99 Nasal Cannula 2.0 28 67 18 96 05/12/19 12:00 64 05/12/19 12:00 98.2 70 18 127/68 (87) 96 05/12/19 11:58 70 127/68 05/12/19 09:00 Nasal Cannula 2.0 05/12/19 08:29 156/85 05/12/19 08:26 77 156/85 05/12/19 08:00 85 05/12/19 08:00 98.3 77 18 156/85 (108) 96 Intake and Output 05/12/19 05/13/19 19:00 07:00 Intake Total 261.270 ml 555.143 ml Output Total 800 ml Balance 261.270 ml -244.857 ml Intake Oral 320 ml IV Total 261.270 ml 235.143 ml Output Urine Total 800 ml # Voids 2 2 Laboratory Tests 05/12/19 14:35: Activated Partial Thromboplast Time 65H 05/13/19 04:05: Activated Partial Thromboplast Time 77H, White Blood Count 5.2, Red Blood Count 5.67, Hemoglobin 14.5, Hematocrit 44.3, Mean Corpuscular Volume 78L, Mean Corpuscular Hemoglobin 25.6L, Mean Corpuscular Hemoglobin Concent 32.8, Red Cell Distribution Width 13.7, Platelet Count 143L, Mean Platelet Volume 7.5, Neutrophils (%) (Auto) 63.3, Lymphocytes (%) (Auto) 21.0, Monocytes (%) (Auto) 13.4H, Eosinophils (%) (Auto) 0.6, Basophils (%) (Auto) 1.7, Sodium Level 140, Potassium Level 3.6, Chloride Level 105, Carbon Dioxide Level 28, Anion Gap 7, Blood Urea Nitrogen 10, Creatinine 1.1, Estimat Glomerular Filtration Rate , Glucose Level 112H, Calcium Level 9.2 Height (Feet): 5 Height (Inches): 9.00 Weight (Pounds): 180 General Appearance: no apparent distress Neck: normal alignment Cardiovascular: normal rate Respiratory/Chest: lungs clear Abdomen: normal bowel sounds Pelvis: normal external exam Objective Current Medications Medications (Trade) Dose Ordered Sig/Gilberot Route PRN Reason Start Time Stop Time Status Last Admin Dose Admin Acetaminophen (Tylenol) 650 mg Q6H PRN ORAL Mild Pain/Temp > 100.5 05/09/19 18:00 06/08/19 17:59 05/12/19 03:54 Albuterol/ Ipratropium (Albuterol/ Ipratropium) 3 ml Q4H PRN HHN Shortness of Breath 05/09/19 15:15 05/14/19 15:14 Albuterol/ Ipratropium (Albuterol/ Ipratropium) 3 ml Q6HRT HHN 05/09/19 19:00 05/14/19 18:59 05/13/19 00:33 Allopurinol (Allopurinol) 300 mg DAILY ORAL 05/09/19 11:00 06/08/19 10:59 05/12/19 08:26 Aspirin (ASA) 81 mg DAILY ORAL 05/09/19 10:00 06/08/19 09:29 05/12/19 08:26 Atenolol (Tenormin) 50 mg DAILY ORAL 05/13/19 09:00 06/12/19 08:59 Atorvastatin Calcium (Lipitor) 40 mg BEDTIME ORAL 05/09/19 21:00 06/08/19 20:59 05/12/19 20:40 Gadobutrol (Gadavist) 7.5 mmol NOW PRN IV Radiology Procedure 05/10/19 08:15 05/14/19 08:13 Heparin Sodium/ Dextrose 500 ml @ 26.127 mls/ hr ADJUST PER PROTOCOL IV 05/12/19 08:30 06/11/19 08:29 05/13/19 07:09 Lisinopril (Zestril) 5 mg DAILY ORAL 05/09/19 11:00 06/08/19 10:59 05/12/19 08:29 Magnesium Hydroxide (Mom) 30 ml DAILYPRN PRN ORAL Constipation 05/11/19 17:15 06/10/19 17:14 05/11/19 17:29 Metformin HCl (Glucophage) 500 mg TIAC ORAL 05/12/19 11:30 06/11/19 11:29 05/13/19 06:23 Ondansetron HCl (Zofran) 4 mg Q6H PRN IVP Nausea & Vomiting 05/09/19 03:00 06/08/19 02:59 Pregabalin (Lyrica) 50 mg DAILY ORAL 05/09/19 11:00 06/08/19 10:59 05/12/19 08:27 Trimethoprim/ Sulfamethoxazole (Bactrim-DS) 1 tab TWICE A DAY ORAL 05/11/19 13:00 05/18/19 12:59 05/12/19 17:06 Vitamin D (Vitamin D) 1,000 intlu DAILY ORAL 05/09/19 11:00 06/08/19 10:59 05/12/19 08:27 Khoi Kessler MD May 13, 2019 07:23
--- NOTE | 2019-05-13 07:44 | NUR ---
HAND-OFF: Report given to STEPHANIE Valdivia.
[2019-05-13 08:00] VITALS: BP 148/68
[2019-05-13] MEDS: Bactrim-DS 1 tab ORAL SCH ×2 (08:34→18:10)
[2019-05-13] MEDS: Lyrica 50mg cap ORAL SCH (08:34)
[2019-05-13] MEDS: Vitamin D 1000 IU Tab ORAL SCH (08:35)
[2019-05-13] MEDS: Lisinopril 10mg tab ORAL SCH (08:35)
[2019-05-13] MEDS: Aspirin Baby 81mg ORAL SCH (08:36)
--- NOTE | 2019-05-13 11:00 | NUR ---
CASE MANAGEMENT:REVIEW 05/13/19 SI: NSTEMI 97.5 75 18 148/68 97% ON 2L/NC IS: HEPARIN GTT ATENOLOL PO QD BACTRIM PO BID DUONEB HHN Q6HRS LISINOPRIL PO QD ASA PO QD : TELEMETRY STATUS DCP: PATIENT IS FROM HOME BUT OPEN TO SNF IF NEED BE
--- NOTE | 2019-05-13 11:49 | Pulmonology Progress Note ---
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 coli UTI Assessment/Plan F/U cards recs, would D/C [facility] as no PE and trops downtrending, ? 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 DVT Px: Consider D/C [facility] and start Hep SQ Subjective Allergies: Coded Allergies: No Known Allergies (Verified , 09/09/11) Subjective AFVSS on 2L No F/C, no CP, no SOB, no cough CT-A no PE + MNG Extensive vascular abnormalities Objective Last 24 Hour Vital Signs Date Time Temp Pulse Resp B/P (MAP) Pulse Ox O2 Delivery O2 Flow Rate FiO2 05/13/19 09:00 Nasal Cannula 2.0 05/13/19 08:35 75 148/68 05/13/19 08:35 148/68 05/13/19 08:00 97.5 75 18 148/68 (94) 97 05/13/19 07:29 84 05/13/19 04:00 75 05/13/19 04:00 98.1 74 18 159/84 (109) 95 05/13/19 00:33 78 18 99 Nasal Cannula 2.0 28 60 16 95 05/13/19 00:00 98.7 76 19 156/72 (100) 94 05/13/19 00:00 79 05/12/19 21:00 Nasal Cannula 2.0 05/12/19 20:00 84 05/12/19 20:00 98.3 77 19 151/72 (98) 94 05/12/19 18:37 74 18 99 Nasal Cannula 2.0 28 70 18 96 05/12/19 18:37 70 18 96 Room Air 2.0 28 05/12/19 18:37 96 Nasal Cannula 2.0 28 05/12/19 16:00 97.9 74 18 132/63 (86) 93 05/12/19 16:00 77 05/12/19 12:38 60 18 99 Nasal Cannula 2.0 28 67 18 96 05/12/19 12:00 64 05/12/19 12:00 98.2 70 18 127/68 (87) 96 05/12/19 11:58 70 127/68 Intake and Output 05/12/19 05/13/19 19:00 07:00 Intake Total 261.270 ml 675.143 ml Output Total 800 ml Balance 261.270 ml -124.857 ml Intake Oral 440 ml IV Total 261.270 ml 235.143 ml Output Urine Total 800 ml # Voids 2 2 General Appearance: WD/WN, no acute distress HEENT: normocephalic, atraumatic, anicteric, mucous membranes moist Respiratory/Chest: chest wall non-tender, lungs clear, normal breath sounds, no respiratory distress, no accessory muscle use Cardiovascular: normal peripheral pulses, normal rate, regular rhythm Abdomen: normal bowel sounds, soft, non tender, no organomegaly, non distended , no mass Extremities: no cyanosis, no clubbing, no edema Laboratory Tests 05/12/19 14:35: Activated Partial Thromboplast Time 65H 05/13/19 04:05: Activated Partial Thromboplast Time 77H, White Blood Count 5.2, Red Blood Count 5.67, Hemoglobin 14.5, Hematocrit 44.3, Mean Corpuscular Volume 78L, Mean Corpuscular Hemoglobin 25.6L, Mean Corpuscular Hemoglobin Concent 32.8, Red Cell Distribution Width 13.7, Platelet Count 143L, Mean Platelet Volume 7.5, Neutrophils (%) (Auto) 63.3, Lymphocytes (%) (Auto) 21.0, Monocytes (%) (Auto) 13.4H, Eosinophils (%) (Auto) 0.6, Basophils (%) (Auto) 1.7, Sodium Level 140, Potassium Level 3.6, Chloride Level 105, Carbon Dioxide Level 28, Anion Gap 7, Blood Urea Nitrogen 10, Creatinine 1.1, Estimat Glomerular Filtration Rate , Glucose Level 112H, Calcium Level 9.2 Current Medications Medications (Trade) Dose Ordered Sig/Gilberto Route PRN Reason Start Time Stop Time Status Last Admin Dose Admin Acetaminophen (Tylenol) 650 mg Q6H PRN ORAL Mild Pain/Temp > 100.5 05/09/19 18:00 06/08/19 17:59 05/12/19 03:54 Albuterol/ Ipratropium (Albuterol/ Ipratropium) 3 ml Q4H PRN HHN Shortness of Breath 05/09/19 15:15 05/14/19 15:14 Albuterol/ Ipratropium (Albuterol/ Ipratropium) 3 ml Q6HRT HHN 05/09/19 19:00 05/14/19 18:59 05/13/19 07:58 Allopurinol (Allopurinol) 300 mg DAILY ORAL 05/09/19 11:00 06/08/19 10:59 05/13/19 08:33 Aspirin (ASA) 81 mg DAILY ORAL 05/09/19 10:00 06/08/19 09:29 05/13/19 08:36 Atenolol (Tenormin) 50 mg DAILY ORAL 05/13/19 09:00 06/12/19 08:59 05/13/19 08:35 Atorvastatin Calcium (Lipitor) 40 mg BEDTIME ORAL 05/09/19 21:00 06/08/19 20:59 05/12/19 20:40 Gadobutrol (Gadavist) 7.5 mmol NOW PRN IV Radiology Procedure 05/10/19 08:15 05/14/19 08:13 Heparin Sodium/ Dextrose 500 ml @ 26.127 mls/ hr ADJUST PER PROTOCOL IV 05/12/19 08:30 06/11/19 08:29 05/13/19 07:09 Lisinopril (Zestril) 5 mg DAILY ORAL 05/09/19 11:00 06/08/19 10:59 05/13/19 08:35 Magnesium Hydroxide (Mom) 30 ml DAILYPRN PRN ORAL Constipation 05/11/19 17:15 06/10/19 17:14 05/11/19 17:29 Metformin HCl (Glucophage) 500 mg TIAC ORAL 05/12/19 11:30 06/11/19 11:29 05/13/19 06:23 Ondansetron HCl (Zofran) 4 mg Q6H PRN IVP Nausea & Vomiting 05/09/19 03:00 06/08/19 02:59 Pregabalin (Lyrica) 50 mg DAILY ORAL 05/09/19 11:00 06/08/19 10:59 05/13/19 08:34 Trimethoprim/ Sulfamethoxazole (Bactrim-DS) 1 tab TWICE A DAY ORAL 05/11/19 13:00 05/18/19 12:59 05/13/19 08:34 Vitamin D (Vitamin D) 1,000 intlu DAILY ORAL 05/09/19 11:00 06/08/19 10:59 05/13/19 08:35 Fausto Mohan MD May 13, 2019 11:49
[2019-05-13 12:00] VITALS: BP 129/65
--- NOTE | 2019-05-13 15:07 | Hematology/Onc Progress Note ---
Assessment/Plan Assessment/Plan ASSESSMENT AND RECS # Thrombocytopenia - potential causes multifactorial, evaluate liver and viral etiologies to begin, also could be related to underlying medications patient has received. can also be reactive process --> Hep panel and HIV ordered -> NEGATIVE --> US abd to evaluate for cirrhosis and hsm ordered and none noted --> Peripheral smear ordered to evaluate for blasts /schistocytes and none noted --> abx and other meds have been reviewed --> ok for ppx if plt >50k w/ either heparin or lovenox --> Transfuse if Plt < 20k and fever, or if Plt < 10k without fever --> plt trend 117-->115-->143k --> okay for heparin sq at this time # Paratracheal mass likely artifactual finding --> seen on cxr --> ct a/p reviewed and no mass is noted --> ct chest reviewed and none ntoed either # Acute hypoxia DDX: PE, ACS --> Pulmonology consult, appreciate recs --> Continue current medications # Elevated troponin: NSTEMI, versus troponin leak from demand ischemia --. okay for anticoag sq --> per cards recs # Hypertensive urgency, now resolved --> continue home medications and adjust as necessary # Diabetes type 2 --> A1c >8 goal --> Accu-Cheks q. before meals nightly --> Patient takes metformin at home, hold while in hospital # Dyslipidemia --> continue statin, asa # DVT ppx hep sq The timing of this note does not necessarily reflect the time of the patient was seen. GREATLY APPRECIATE CONSULTATION. Subjective HEENT: Denies: no symptoms, eye pain, blurred vision, tearing, double vision, ear pain, ear discharge, nose pain, nose congestion, throat pain, throat swelling, mouth pain, mouth swelling, other Cardiovascular: Denies: no symptoms, chest pain, edema, irregular heart rate, lightheadedness, palpitations, syncope, other Respiratory: Denies: no symptoms, cough, shortness of breath, SOB with excertion, SOB at rest, sputum, wheezing, other Gastrointestinal/Abdominal: Denies: no symptoms, abdomen distended, abdominal pain, black stools, tarry stools, blood in stool, constipated, diarrhea, difficulty swallowing, nausea, poor appetite, poor fluid intake, rectal bleeding , vomiting, other Genitourinary: Denies: no symptoms, burning, discharge, frequency, flank pain, hematuria, incontinence, pain, urgency, other Neurologic/Psychiatric: Denies: no symptoms, anxiety, depressed, emotional problems, headache, numbness, paresthesia, pre-existing deficit, seizure, tingling, tremors, weakness, other Allergies: Coded Allergies: No Known Allergies (Verified , 09/09/11) Subjective 05/10: no events, no bleeding, no night sweats, imaging reviewed 05/12: on 2l nc, on heparin gtt, breathing improved, no fc 05/13: no bleeding, chills or night sweats, hep gtt stopped and hep sq started Objective Objective Current Medications Medications (Trade) Dose Ordered Sig/Gilberto Route PRN Reason Start Time Stop Time Status Last Admin Dose Admin Acetaminophen (Tylenol) 650 mg Q6H PRN ORAL Mild Pain/Temp > 100.5 05/09/19 18:00 06/08/19 17:59 05/12/19 03:54 Albuterol/ Ipratropium (Albuterol/ Ipratropium) 3 ml Q4H PRN HHN Shortness of Breath 05/09/19 15:15 05/14/19 15:14 Albuterol/ Ipratropium (Albuterol/ Ipratropium) 3 ml Q6HRT HHN 05/09/19 19:00 05/14/19 18:59 05/13/19 13:25 Allopurinol (Allopurinol) 300 mg DAILY ORAL 05/09/19 11:00 06/08/19 10:59 05/13/19 08:33 Aspirin (ASA) 81 mg DAILY ORAL 05/09/19 10:00 06/08/19 09:29 05/13/19 08:36 Atenolol (Tenormin) 50 mg DAILY ORAL 05/13/19 09:00 06/12/19 08:59 05/13/19 08:35 Atorvastatin Calcium (Lipitor) 40 mg BEDTIME ORAL 05/09/19 21:00 06/08/19 20:59 05/12/19 20:40 Gadobutrol (Gadavist) 7.5 mmol NOW PRN IV Radiology Procedure 05/10/19 08:15 05/14/19 08:13 Lisinopril (Zestril) 5 mg DAILY ORAL 05/09/19 11:00 06/08/19 10:59 05/13/19 08:35 Magnesium Hydroxide (Mom) 30 ml DAILYPRN PRN ORAL Constipation 05/11/19 17:15 06/10/19 17:14 05/11/19 17:29 Metformin HCl (Glucophage) 500 mg TIAC ORAL 05/12/19 11:30 06/11/19 11:29 05/13/19 06:23 Ondansetron HCl (Zofran) 4 mg Q6H PRN IVP Nausea & Vomiting 05/09/19 03:00 06/08/19 02:59 Pregabalin (Lyrica) 50 mg DAILY ORAL 05/09/19 11:00 06/08/19 10:59 05/13/19 08:34 Trimethoprim/ Sulfamethoxazole (Bactrim-DS) 1 tab TWICE A DAY ORAL 05/11/19 13:00 05/18/19 12:59 05/13/19 08:34 Vitamin D (Vitamin D) 1,000 intlu DAILY ORAL 05/09/19 11:00 06/08/19 10:59 05/13/19 08:35 Last 24 Hour Vital Signs Date Time Temp Pulse Resp B/P (MAP) Pulse Ox O2 Delivery O2 Flow Rate FiO2 05/13/19 13:33 69 20 98 Nasal Cannula 2.0 28 62 18 94 05/13/19 12:00 97.0 92 18 129/65 (86) 98 05/13/19 09:00 Nasal Cannula 2.0 05/13/19 08:35 75 148/68 05/13/19 08:35 148/68 05/13/19 08:00 97.5 75 18 148/68 (94) 97 05/13/19 07:58 74 18 100 Nasal Cannula 2.0 28 77 18 94 05/13/19 07:57 95 Nasal Cannula 2.0 28 05/13/19 07:29 84 05/13/19 04:00 75 05/13/19 04:00 98.1 74 18 159/84 (109) 95 05/13/19 00:33 78 18 99 Nasal Cannula 2.0 28 60 16 95 05/13/19 00:00 98.7 76 19 156/72 (100) 94 8/26/19 00:00 79 05/12/19 21:00 Nasal Cannula 2.0 05/12/19 20:00 84 05/12/19 20:00 98.3 77 19 151/72 (98) 94 05/12/19 18:37 74 18 99 Nasal Cannula 2.0 28 70 18 96 05/12/19 18:37 70 18 96 Room Air 2.0 28 05/12/19 18:37 96 Nasal Cannula 2.0 28 05/12/19 16:00 97.9 74 18 132/63 (86) 93 05/12/19 16:00 77 05/12/19 12:38 60 18 99 Nasal Cannula 2.0 28 67 18 96 05/12/19 12:00 64 05/12/19 12:00 98.2 70 18 127/68 (87) 96 05/12/19 11:58 70 127/68 05/12/19 09:00 Nasal Cannula 2.0 05/12/19 08:29 156/85 05/12/19 08:26 77 156/85 05/12/19 08:00 85 05/12/19 08:00 98.3 77 18 156/85 (108) 96 05/12/19 06:30 74 18 95 Room Air 2.0 28 05/12/19 06:30 95 Nasal Cannula 2.0 28 05/12/19 06:21 75 18 96 Nasal Cannula 2.0 28 72 18 95 05/12/19 04:00 77 05/12/19 04:00 98.1 77 20 142/90 (107) 96 05/12/19 01:18 81 18 96 Nasal Cannula 2.0 28 79 18 94 05/12/19 00:00 76 05/12/19 00:00 98.4 76 18 147/76 (99) 99 05/11/19 21:00 Nasal Cannula 2.0 05/11/19 20:00 79 05/11/19 20:00 98.9 79 18 156/72 (100) 96 05/11/19 19:44 79 18 97 Nasal Cannula 2.0 28 77 18 94 05/11/19 19:43 94 Nasal Cannula 2.0 28 05/11/19 16:00 70 05/11/19 15:50 97.8 72 20 129/65 (86) 95 Intake and Output 05/12/19 05/13/19 19:00 07:00 Intake Total 261.270 ml 675.143 ml Output Total 800 ml Balance 261.270 ml -124.857 ml Intake Oral 440 ml IV Total 261.270 ml 235.143 ml Output Urine Total 800 ml # Voids 2 2 Labs Test 05/10/19 16:00 05/10/19 20:00 05/11/19 04:10 05/12/19 04:10 Activated Partial Thromboplast Time 67 SEC (23-33) 70 SEC (23-33) 47 SEC (23-33) Hepatitis A IgM Antibody Negative (Negative) Hepatitis B Surface Antigen Negative (Negative) Hepatitis B Core IgM Antibody Negative (Negative) Hepatitis C Antibody <0.1 s/co ratio Troponin I 0.178 ng/mL (0.000-0.056) White Blood Count 5.3 K/UL (4.8-10.8) Red Blood Count 5.91 M/UL (4.70-6.10) Hemoglobin 15.4 G/DL (14.2-18.0) Hematocrit 46.0 % (42.0-52.0) Mean Corpuscular Volume 78 FL (80-99) Mean Corpuscular Hemoglobin 26.0 PG (27.0-31.0) Mean Corpuscular Hemoglobin Concent 33.4 G/DL (32.0-36.0) Red Cell Distribution Width 13.5 % (11.6-14.8) Platelet Count 115 K/UL (150-450) Mean Platelet Volume 9.2 FL (6.5-10.1) Neutrophils (%) (Auto) 76.7 % (45.0-75.0) Lymphocytes (%) (Auto) 10.7 % (20.0-45.0) Monocytes (%) (Auto) 11.6 % (1.0-10.0) Eosinophils (%) (Auto) 0.3 % (0.0-3.0) Basophils (%) (Auto) 0.6 % (0.0-2.0) Sodium Level 134 MMOL/L (136-145) Potassium Level 3.5 MMOL/L (3.5-5.1) Chloride Level 102 MMOL/L (98-107) Carbon Dioxide Level 26 MMOL/L (21-32) Anion Gap 6 mmol/L (5-15) Blood Urea Nitrogen 16 mg/dL (7-18) Creatinine 1.1 MG/DL (0.55-1.30) Estimat Glomerular Filtration Rate mL/min (>60) Glucose Level 112 MG/DL (74-106) Hemoglobin A1c 6.7 % (4.3-6.0) Calcium Level 9.1 MG/DL (8.5-10.1) Test 05/12/19 07:15 05/12/19 14:35 05/13/19 04:05 Activated Partial Thromboplast Time 51 SEC (23-33) 65 SEC (23-33) 77 SEC (23-33) White Blood Count 5.2 K/UL (4.8-10.8) Red Blood Count 5.67 M/UL (4.70-6.10) Hemoglobin 14.5 G/DL (14.2-18.0) Hematocrit 44.3 % (42.0-52.0) Mean Corpuscular Volume 78 FL (80-99) Mean Corpuscular Hemoglobin 25.6 PG (27.0-31.0) Mean Corpuscular Hemoglobin Concent 32.8 G/DL (32.0-36.0) Red Cell Distribution Width 13.7 % (11.6-14.8) Platelet Count 143 K/UL (150-450) Mean Platelet Volume 7.5 FL (6.5-10.1) Neutrophils (%) (Auto) 63.3 % (45.0-75.0) Lymphocytes (%) (Auto) 21.0 % (20.0-45.0) Monocytes (%) (Auto) 13.4 % (1.0-10.0) Eosinophils (%) (Auto) 0.6 % (0.0-3.0) Basophils (%) (Auto) 1.7 % (0.0-2.0) Sodium Level 140 MMOL/L (136-145) Potassium Level 3.6 MMOL/L (3.5-5.1) Chloride Level 105 MMOL/L (98-107) Carbon Dioxide Level 28 MMOL/L (21-32) Anion Gap 7 mmol/L (5-15) Blood Urea Nitrogen 10 mg/dL (7-18) Creatinine 1.1 MG/DL (0.55-1.30) Estimat Glomerular Filtration Rate mL/min (>60) Glucose Level 112 MG/DL (74-106) Calcium Level 9.2 MG/DL (8.5-10.1) Height (Feet): 5 Height (Inches): 9.00 Weight (Pounds): 180 Objective General Appearance: WD/WN Respiratory/Chest: lungs clear, normal breath sounds Cardiovascular: normal rate, regular rhythm Abdomen: soft, non tender, no organomegaly Extremities: no cyanosis, no clubbing Skin: no lesions Neurologic/Psychiatric: abnormal gait, alert, oriented x 3, responsive Mickey Borja MD May 13, 2019 15:07
[2019-05-13 16:00] VITALS: BP 120/69
--- NOTE | 2019-05-13 16:13 | Cardiology Progress Note ---
Assessment/Plan Status: stable Assessment/Plan Assessment/Plan Assessment/Plan: Assessment: (1) NSTEMI (non-ST elevated myocardial infarction) (2) Hypoxemia (3) Elevated d-dimer (4) Tracheal deviation (5) Mediastinal mass (6) UTI (urinary tract infection) (7) Weakness (8) NIDDY (non-insulin dependent diabetes mellitus in young) (9) Hyperlipemia (10) Obesity (11) HTN (hypertension) (12) Slurred speech Plan: Echocardiogram normal LV function Trend troponin/EKG Nitro prn Ideally would perform angiogram given risk factors but not available Stress test when stable and troponin down trended - outpatient CTA to evaluate for PE -> negative Supplementary oxygen IV abx for UTI Continue aspirin Continue statin Continue beta stefanie Thoracentesis evaluation for effusion Ok to discharge home, outpatient follow up Subjective Cardiovascular: Reports: no symptoms Respiratory: Reports: no symptoms Gastrointestinal/Abdominal: Reports: no symptoms Genitourinary: Reports: no symptoms Subjective CTA negative, Echo normal, Heparin gtt stopped, no chest pain, plan to d/c today outpatient stress test Objective Last 24 Hour Vital Signs Date Time Temp Pulse Resp B/P (MAP) Pulse Ox O2 Delivery O2 Flow Rate FiO2 05/13/19 13:33 69 20 98 Nasal Cannula 2.0 28 62 18 94 05/13/19 12:00 97.0 92 18 129/65 (86) 98 05/13/19 11:58 84 05/13/19 09:00 Nasal Cannula 2.0 05/13/19 08:35 75 148/68 05/13/19 08:35 148/68 05/13/19 08:00 97.5 75 18 148/68 (94) 97 05/13/19 07:58 74 18 100 Nasal Cannula 2.0 28 77 18 94 05/13/19 07:57 95 Nasal Cannula 2.0 28 05/13/19 07:29 84 05/13/19 04:00 75 05/13/19 04:00 98.1 74 18 159/84 (109) 95 05/13/19 00:33 78 18 99 Nasal Cannula 2.0 28 60 16 95 05/13/19 00:00 98.7 76 19 156/72 (100) 94 05/13/19 00:00 79 05/12/19 21:00 Nasal Cannula 2.0 8/25/19 20:00 84 05/12/19 20:00 98.3 77 19 151/72 (98) 94 05/12/19 18:37 74 18 99 Nasal Cannula 2.0 28 70 18 96 05/12/19 18:37 70 18 96 Room Air 2.0 28 05/12/19 18:37 96 Nasal Cannula 2.0 28 General Appearance: no apparent distress, alert EENT: PERRL/EOMI, normal ENT inspection, TMs normal, pharynx normal Neck: non-tender, normal alignment, supple, normal inspection, no JVD Rhythm: NSR Cardiovascular: normal peripheral pulses, normal rate, regular rhythm Respiratory/Chest: chest wall non-tender, lungs clear, normal breath sounds, no respiratory distress, no accessory muscle use Abdomen: normal bowel sounds, non tender, soft, no organomegaly Extremities: normal range of motion, non-tender, normal inspection 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 II-XII grossly normal, no motor/sensory deficits Intake and Output 05/12/19 05/13/19 19:00 07:00 Intake Total 261.270 ml 675.143 ml Output Total 800 ml Balance 261.270 ml -124.857 ml Intake Oral 440 ml IV Total 261.270 ml 235.143 ml Output Urine Total 800 ml # Voids 2 2 Laboratory Tests Test 05/13/19 04:05 White Blood Count 5.2 K/UL (4.8-10.8) Red Blood Count 5.67 M/UL (4.70-6.10) Hemoglobin 14.5 G/DL (14.2-18.0) Hematocrit 44.3 % (42.0-52.0) Mean Corpuscular Volume 78 FL (80-99) L Mean Corpuscular Hemoglobin 25.6 PG (27.0-31.0) L Mean Corpuscular Hemoglobin Concent 32.8 G/DL (32.0-36.0) Red Cell Distribution Width 13.7 % (11.6-14.8) Platelet Count 143 K/UL (150-450) L Mean Platelet Volume 7.5 FL (6.5-10.1) Neutrophils (%) (Auto) 63.3 % (45.0-75.0) Lymphocytes (%) (Auto) 21.0 % (20.0-45.0) Monocytes (%) (Auto) 13.4 % (1.0-10.0) H Eosinophils (%) (Auto) 0.6 % (0.0-3.0) Basophils (%) (Auto) 1.7 % (0.0-2.0) Activated Partial Thromboplast Time 77 SEC (23-33) H Sodium Level 140 MMOL/L (136-145) Potassium Level 3.6 MMOL/L (3.5-5.1) Chloride Level 105 MMOL/L (98-107) Carbon Dioxide Level 28 MMOL/L (21-32) Anion Gap 7 mmol/L (5-15) Blood Urea Nitrogen 10 mg/dL (7-18) Creatinine 1.1 MG/DL (0.55-1.30) Estimat Glomerular Filtration Rate mL/min (>60) Glucose Level 112 MG/DL (74-106) H Calcium Level 9.2 MG/DL (8.5-10.1) Cedric Gallardo MD May 13, 2019 16:13
--- NOTE | 2019-05-13 16:50 | General Progress Note ---
Assessment/Plan Status: stable Assessment/Plan: Assessment/Plan Assessment/Plan: 78-year-old male with past medical history of hypertension, smoking history, dyslipidemia, diabetes 2. #Acute hypoxia DDX: PE, ACS, resolved -Symptoms improved -Pulmonology consult, appreciate recs -Serial troponins and EKGs, reviewed -Chest x-ray reviewed: Small left pleural effusion and paratracheal mass with left tracheal deviation -Follow-up CTA chest to rule out PE and further evaluate mass and pleural effusion: reviewed -Continue current medications -Patient baseline O2 2 L nasal cannula #Elevated troponin: NSTEMI, versus troponin leak from demand ischemia -Cardiology consult, appreciate recs -EKGs reviewed no ST elevation or T wave inversions -Troponins reviewed. Continue beta-stefanie, aspirin, statin, DEVIN inhibitor. - Outpatient stress test per cardiology. -Follow-up echo: Review-Continue Nitrp SL -Blood pressure control #Likely pulmonary hypertension -PASP of 54 and echo EF 55% -Pulmonology following #Paratracheal mass, tiny nodular goiter -Seen on chest x-ray -Follow-up thyroid ultrasound -Endocrinology consult reviewed. Outpatient PHILLIPS scan and possibly ablation per Dr. Kessler, appreciate recs -Thyroid function test reviewed #Slurred speech, eval for CVA -Neurology consult not available -Follow-up brain MRI without contrast-no acute stroke -Follow-up carotid ultrasound, and echo as above, echo as above follow-up carotid ultrasound -PT OT noted and will benefit from follow up as outpatient #Hypertensive urgency, now resolved -Continue home medications and adjust as necessary - Atenolol new dose is 50 mg daily #UTI -Continue Rocephin -Follow-up culture and sensitivity -Pansensitive E. coli changed to bactrim, continue until 05/16 #Diabetes type 2 -Check A1c:reviewed -Accu-Cheks q. before meals nightly -Patient takes metformin at home once a day #Dyslipidemia -Fasting lipid: reviewed -Continue statin FULL code. Time of note may not reflect time of patient encounter. Subjective ROS Limited/Unobtainable: Yes Constitutional: Reports: no symptoms Allergies: Coded Allergies: No Known Allergies (Verified , 09/09/11) All Systems: reviewed and negative except above Objective Last 24 Hour Vital Signs Date Time Temp Pulse Resp B/P (MAP) Pulse Ox O2 Delivery O2 Flow Rate FiO2 05/13/19 16:00 98.6 71 18 120/69 (86) 95 05/13/19 13:33 69 20 98 Nasal Cannula 2.0 28 62 18 94 05/13/19 12:00 97.0 92 18 129/65 (86) 98 05/13/19 11:58 84 05/13/19 09:00 Nasal Cannula 2.0 05/13/19 08:35 75 148/68 05/13/19 08:35 148/68 05/13/19 08:00 97.5 75 18 148/68 (94) 97 05/13/19 07:58 74 18 100 Nasal Cannula 2.0 28 77 18 94 05/13/19 07:57 95 Nasal Cannula 2.0 28 05/13/19 07:29 84 05/13/19 04:00 75 05/13/19 04:00 98.1 74 18 159/84 (109) 95 05/13/19 00:33 78 18 99 Nasal Cannula 2.0 28 60 16 95 05/13/19 00:00 98.7 76 19 156/72 (100) 94 05/13/19 00:00 79 05/12/19 21:00 Nasal Cannula 2.0 05/12/19 20:00 84 05/12/19 20:00 98.3 77 19 151/72 (98) 94 05/12/19 18:37 74 18 99 Nasal Cannula 2.0 28 70 18 96 05/12/19 18:37 70 18 96 Room Air 2.0 28 05/12/19 18:37 96 Nasal Cannula 2.0 28 Intake and Output 05/12/19 05/13/19 19:00 07:00 Intake Total 261.270 ml 675.143 ml Output Total 800 ml Balance 261.270 ml -124.857 ml Intake Oral 440 ml IV Total 261.270 ml 235.143 ml Output Urine Total 800 ml # Voids 2 2 Laboratory Tests 05/13/19 04:05: White Blood Count 5.2, Red Blood Count 5.67, Hemoglobin 14.5, Hematocrit 44.3, Mean Corpuscular Volume 78L, Mean Corpuscular Hemoglobin 25.6L, Mean Corpuscular Hemoglobin Concent 32.8, Red Cell Distribution Width 13.7, Platelet Count 143L, Mean Platelet Volume 7.5, Neutrophils (%) (Auto) 63.3, Lymphocytes ( %) (Auto) 21.0, Monocytes (%) (Auto) 13.4H, Eosinophils (%) (Auto) 0.6, Basophils (%) (Auto) 1.7, Activated Partial Thromboplast Time 77H, Sodium Level 140, Potassium Level 3.6, Chloride Level 105, Carbon Dioxide Level 28, Anion Gap 7, Blood Urea Nitrogen 10, Creatinine 1.1, Estimat Glomerular Filtration Rate , Glucose Level 112H, Calcium Level 9.2 Height (Feet): 5 Height (Inches): 9.00 Weight (Pounds): 180 General Appearance: WD/WN EENT: PERRL/EOMI Neck: non-tender Cardiovascular: normal rate Respiratory/Chest: chest wall non-tender Abdomen: normal bowel sounds Extremities: normal range of motion Jose Alberto Zeng MD May 13, 2019 16:50
--- NOTE | 2019-05-13 17:01 | NUR ---
DISCHARGE PLANNING REFERRED TO [facility] T: [phone] F: [phone]
--- NOTE | 2019-05-13 19:20 | NUR ---
HAND-OFF: Report given to STEPHANIE Carlin. Patient is resting in bed.
--- NOTE | 2019-05-13 19:44 | NUR ---
NURSE NOTES: Received pt and report from STEPHANIE Valdivia. Observed pt resting in bed with both eyes open. monitor tech is in placed, IV site intact, asymptomatic and patent. Bed is in the lowest position and locked. Call light within reach. No signs and symptoms of acute distress noted at this time. Will continue plan of care.
[2019-05-13 20:00] VITALS: BP 141/65
[2019-05-13] MEDS: Atorvastatin 80mg tab ORAL SCH (21:27)
[2019-05-13] MEDS: Milk of Magnesia 30ml Ud ORAL PRN (21:27)
[2019-05-13] MEDS: Heparin 5000 units/ml inj SUBQ SCH (21:44)
[2019-05-14] VITALS: BP 145/65
[2019-05-14] MEDS: Albuterol/Ipratropium 3ml neb HHN SCH ×3 (00:39→12:55)
[2019-05-14 04:00] VITALS: BP 143/78
[2019-05-14] MEDS: Heparin 5000 units/ml inj SUBQ SCH (06:00)
[2019-05-14] MEDS: metFORMIN 500mg tab ORAL SCH ×2 (06:08→12:14)
--- NOTE | 2019-05-14 06:38 | General Progress Note ---
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, unspecified SNOMED: 06417733 (2) Diabetes mellitus ICD Codes: E11.9 - Type 2 diabetes mellitus without complications SNOMED: 58141000 (3) NSTEMI (non-ST elevated myocardial infarction) ICD Codes: I21.4 - Non-ST elevation (NSTEMI) myocardial infarction SNOMED: 84799131 (4) Mediastinal mass ICD Codes: J98.59 - Other diseases of mediastinum, not elsewhere classified SNOMED: 80038132 (5) HTN (hypertension) ICD Codes: I10 - Essential (primary) hypertension SNOMED: 75240707 (6) Hyperlipemia ICD Codes: E78.5 - Hyperlipidemia, unspecified SNOMED: 48231651 (7) Subclinical hyperthyroidism ICD Codes: E05.90 - Thyrotoxicosis, unspecified without thyrotoxic crisis or storm SNOMED: 725969296 Status: stable Assessment/Plan: no need to start anti thyroid medications he is a candidate for PHILLIPS uptake and scan follow by ablation as OP follow thyroid US results diabetes in good control continue Metformin 500 mg tid continue NISS ac / hs Subjective Allergies: Coded Allergies: No Known Allergies (Verified , 09/09/11) All Systems: reviewed and negative except above Subjective events noted glucose well controlled Item Value Date Time Bedside Blood Glucose 103 mg/dl 05/14/19 0630 Bedside Blood Glucose 121 mg/dl H 05/13/19 2100 Bedside Blood Glucose 105 mg/dl 05/13/19 1630 Bedside Blood Glucose 117 mg/dl 05/13/19 1130 Bedside Blood Glucose 95 mg/dl 05/13/19 0630 Objective Last 24 Hour Vital Signs Date Time Temp Pulse Resp B/P (MAP) Pulse Ox O2 Delivery O2 Flow Rate FiO2 05/14/19 04:00 96.9 91 19 143/78 (99) 98 05/14/19 04:00 91 05/14/19 00:39 68 16 98 Nasal Cannula 2.0 28 60 16 95 05/14/19 00:00 97.7 74 18 145/65 (91) 94 05/14/19 00:00 82 05/13/19 21:00 Nasal Cannula 2.0 05/13/19 20:00 97.8 75 18 141/65 (90) 98 05/13/19 20:00 80 8/26/19 18:50 96 Nasal Cannula 2.0 28 05/13/19 16:00 98.6 71 20 120/69 (86) 97 05/13/19 15:58 72 05/13/19 13:33 69 20 98 Nasal Cannula 2.0 28 62 18 94 05/13/19 12:00 97.0 92 18 129/65 (86) 98 05/13/19 11:58 84 05/13/19 09:00 Nasal Cannula 2.0 05/13/19 08:35 75 148/68 05/13/19 08:35 148/68 05/13/19 08:00 97.5 75 18 148/68 (94) 97 05/13/19 07:58 74 18 100 Nasal Cannula 2.0 28 77 18 94 05/13/19 07:57 95 Nasal Cannula 2.0 28 05/13/19 07:29 84 Intake and Output 05/13/19 05/14/19 19:00 07:00 Intake Total 364.508 ml Output Total 500 ml Balance -135.492 ml Intake Oral 260 ml IV Total 104.508 ml Output Urine Total 500 ml # Voids 3 2 Height (Feet): 5 Height (Inches): 9.00 Weight (Pounds): 180 General Appearance: no apparent distress Neck: normal alignment Cardiovascular: normal rate Respiratory/Chest: decreased breath sounds Abdomen: normal bowel sounds Objective Current Medications Medications (Trade) Dose Ordered Sig/Gilberto Route PRN Reason Start Time Stop Time Status Last Admin Dose Admin Acetaminophen (Tylenol) 650 mg Q6H PRN ORAL Mild Pain/Temp > 100.5 05/09/19 18:00 06/08/19 17:59 05/12/19 03:54 Albuterol/ Ipratropium (Albuterol/ Ipratropium) 3 ml Q4H PRN HHN Shortness of Breath 05/09/19 15:15 05/14/19 15:14 Albuterol/ Ipratropium (Albuterol/ Ipratropium) 3 ml Q6HRT HHN 05/09/19 19:00 05/14/19 18:59 05/14/19 00:39 Allopurinol (Allopurinol) 300 mg DAILY ORAL 05/09/19 11:00 06/08/19 10:59 05/13/19 08:33 Aspirin (ASA) 81 mg DAILY ORAL 05/09/19 10:00 06/08/19 09:29 05/13/19 08:36 Atenolol (Tenormin) 50 mg DAILY ORAL 05/13/19 09:00 06/12/19 08:59 05/13/19 08:35 Atorvastatin Calcium (Lipitor) 40 mg BEDTIME ORAL 05/09/19 21:00 06/08/19 20:59 05/13/19 21:27 Gadobutrol (Gadavist) 7.5 mmol NOW PRN IV Radiology Procedure 05/10/19 08:15 05/14/19 08:13 Heparin Sodium (Porcine) (Heparin 5000 units/ml) 5,000 units EVERY 8 HOURS SUBQ 05/13/19 22:00 06/12/19 21:59 Lisinopril (Zestril) 5 mg DAILY ORAL 05/09/19 11:00 06/08/19 10:59 05/13/19 08:35 Magnesium Hydroxide (Mom) 30 ml DAILYPRN PRN ORAL Constipation 05/11/19 17:15 06/10/19 17:14 05/13/19 21:27 Metformin HCl (Glucophage) 500 mg TIAC ORAL 05/12/19 11:30 06/11/19 11:29 05/14/19 06:08 Ondansetron HCl (Zofran) 4 mg Q6H PRN IVP Nausea & Vomiting 05/09/19 03:00 06/08/19 02:59 Pregabalin (Lyrica) 50 mg DAILY ORAL 05/09/19 11:00 06/08/19 10:59 05/13/19 08:34 Trimethoprim/ Sulfamethoxazole (Bactrim-DS) 1 tab TWICE A DAY ORAL 05/11/19 13:00 05/18/19 12:59 05/13/19 18:10 Vitamin D (Vitamin D) 1,000 intlu DAILY ORAL 05/09/19 11:00 06/08/19 10:59 05/13/19 08:35 Khoi Kessler MD May 14, 2019 06:38
--- NOTE | 2019-05-14 07:34 | NUR ---
HAND-OFF: Report given to STEPHANIE Edge.
--- NOTE | 2019-05-14 07:35 | NUR ---
NURSE NOTES: Nurse report given by STEPHANIE Carlin. Patient's awake and receiving respiratory treatment. Denies pain. No s/s of distress or SOB. Bed at lowest position, call light within reach, break engaged. IV is SL, flushed well and patent, no s/s redness or tenderness. Will continue to monitor.
[2019-05-14 08:00] VITALS: BP 140/69
--- NOTE | 2019-05-14 08:20 | Pulmonology Progress Note ---
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 coli UTI Assessment/Plan F/U cards recs, plan for outpatient ischemia eval Consider vascular surgery evaluation F/U ENDO recs, outpatient PHILLIPS uptake scan and ablation Optimize pulmonary hygiene/mobilize as tolerated Titrate O2 to keep SaO2 > 90% Check RA sats HHN's PT/OT/[employer] DVT Px: Hep SQ Subjective Allergies: Coded Allergies: No Known Allergies (Verified , 09/09/11) Subjective AFVSS on 2L No F/C, no CP, no SOB, no cough Objective Last 24 Hour Vital Signs Date Time Temp Pulse Resp B/P (MAP) Pulse Ox O2 Delivery O2 Flow Rate FiO2 05/14/19 08:00 97.2 81 18 140/69 (92) 95 05/14/19 07:28 95 Nasal Cannula 2.0 28 05/14/19 07:26 68 16 95 Nasal Cannula 2.0 28 68 18 95 05/14/19 04:00 96.9 91 19 143/78 (99) 98 05/14/19 04:00 91 05/14/19 00:39 68 16 98 Nasal Cannula 2.0 28 60 16 95 05/14/19 00:00 97.7 74 18 145/65 (91) 94 05/14/19 00:00 82 05/13/19 21:00 Nasal Cannula 2.0 05/13/19 20:00 97.8 75 18 141/65 (90) 98 05/13/19 20:00 80 05/13/19 18:50 96 Nasal Cannula 2.0 28 05/13/19 16:00 98.6 71 20 120/69 (86) 97 05/13/19 15:58 72 05/13/19 13:33 69 20 98 Nasal Cannula 2.0 28 62 18 94 05/13/19 12:00 97.0 92 18 129/65 (86) 98 05/13/19 11:58 84 05/13/19 09:00 Nasal Cannula 2.0 05/13/19 08:35 75 148/68 05/13/19 08:35 148/68 Intake and Output 05/13/19 05/14/19 19:00 07:00 Intake Total 364.508 ml Output Total 500 ml Balance -135.492 ml Intake Oral 260 ml IV Total 104.508 ml Output Urine Total 500 ml # Voids 3 2 General Appearance: WD/WN, no acute distress HEENT: normocephalic, atraumatic, anicteric, mucous membranes moist Respiratory/Chest: chest wall non-tender, lungs clear, normal breath sounds Cardiovascular: normal peripheral pulses, normal rate, regular rhythm Abdomen: normal bowel sounds, soft, non tender, no organomegaly, non distended , no mass Extremities: no cyanosis, no clubbing, no edema Laboratory Tests 05/14/19 06:25: Activated Partial Thromboplast Time 33 Current Medications Medications (Trade) Dose Ordered Sig/Gilberto Route PRN Reason Start Time Stop Time Status Last Admin Dose Admin Acetaminophen (Tylenol) 650 mg Q6H PRN ORAL Mild Pain/Temp > 100.5 05/09/19 18:00 06/08/19 17:59 05/12/19 03:54 Albuterol/ Ipratropium (Albuterol/ Ipratropium) 3 ml Q4H PRN HHN Shortness of Breath 05/09/19 15:15 05/14/19 15:14 Albuterol/ Ipratropium (Albuterol/ Ipratropium) 3 ml Q6HRT HHN 05/09/19 19:00 05/14/19 18:59 05/14/19 07:26 Allopurinol (Allopurinol) 300 mg DAILY ORAL 05/09/19 11:00 06/08/19 10:59 05/13/19 08:33 Aspirin (ASA) 81 mg DAILY ORAL 05/09/19 10:00 06/08/19 09:29 05/13/19 08:36 Atenolol (Tenormin) 50 mg DAILY ORAL 05/13/19 09:00 06/12/19 08:59 05/13/19 08:35 Atorvastatin Calcium (Lipitor) 40 mg BEDTIME ORAL 05/09/19 21:00 06/08/19 20:59 05/13/19 21:27 Heparin Sodium (Porcine) (Heparin 5000 units/ml) 5,000 units EVERY 8 HOURS SUBQ 05/13/19 22:00 06/12/19 21:59 Lisinopril (Zestril) 5 mg DAILY ORAL 05/09/19 11:00 06/08/19 10:59 05/13/19 08:35 Magnesium Hydroxide (Mom) 30 ml DAILYPRN PRN ORAL Constipation 05/11/19 17:15 06/10/19 17:14 05/13/19 21:27 Metformin HCl (Glucophage) 500 mg TIAC ORAL 05/12/19 11:30 06/11/19 11:29 05/14/19 06:08 Ondansetron HCl (Zofran) 4 mg Q6H PRN IVP Nausea & Vomiting 05/09/19 03:00 06/08/19 02:59 Pregabalin (Lyrica) 50 mg DAILY ORAL 05/09/19 11:00 06/08/19 10:59 05/13/19 08:34 Trimethoprim/ Sulfamethoxazole (Bactrim-DS) 1 tab TWICE A DAY ORAL 05/11/19 13:00 05/18/19 12:59 05/13/19 18:10 Vitamin D (Vitamin D) 1,000 intlu DAILY ORAL 05/09/19 11:00 06/08/19 10:59 05/13/19 08:35 Fausto Mohan MD May 14, 2019 08:20
[2019-05-14] MEDS: Aspirin Baby 81mg ORAL SCH (08:28)
[2019-05-14] MEDS: Lisinopril 10mg tab ORAL SCH (08:28)
[2019-05-14] MEDS: Vitamin D 1000 IU Tab ORAL SCH (08:28)
[2019-05-14] MEDS: Bactrim-DS 1 tab ORAL SCH (08:28)
[2019-05-14] MEDS: Lyrica 50mg cap ORAL SCH (08:30)
--- NOTE | 2019-05-14 09:41 | Discharge Instructions ---
Discharge Instructions Discharge Instructions Services at Discharge: physical therapy, home health services Diet: 2 GM sodium (low sodium) Resume Normal Activity?: Yes Activity: as tolerated, up w/ walker For Surgical Patients May shower: Yes Contact your physician for: bleeding For Congestive Heart Failure Reminder Report to your physician any weight gain of 5 pounds or more in one week. Jose Alberto Zeng MD May 14, 2019 09:41
[2019-05-14] MEDS ORDERED: GLUCOPHAGE500 MG ORAL (09:48)
[2019-05-14] MEDS ORDERED: ZESTRIL10 M1 ORAL (09:48)
[2019-05-14] MEDS ORDERED: ASPIRIN81 MG ORAL (09:48)
[2019-05-14] MEDS ORDERED: BACTRIM-DS1 EA ORAL (09:48)
[2019-05-14] MEDS ORDERED: ATENOLOL50 MG ORAL (09:48)
[2019-05-14] MEDS ORDERED: ALLOPURINOL100 M1 ORAL (09:48)
[2019-05-14] MEDS ORDERED: VITAMIN D1000 UNI1 ORAL (09:48)
[2019-05-14] MEDS ORDERED: LYRICA50 MG ORAL (09:48)
[2019-05-14] MEDS ORDERED: LIPITOR80 MG ORAL (09:48)
--- NOTE | 2019-05-14 09:59 | Discharge Summary ---
Discharge Summary Hospital Course Date of Admission May 09, 2019 at 00:00 Date of Discharge May 14, 2019 Admitting Diagnosis weakness, dehydration HPI Xavier Castillo is a 78 year old male who was admitted on May 09, 2019 at 00:00 for Weakness/Dehydration Hospital Course 78-year-old male with past medical history of hypertension, smoking history, dyslipidemia, diabetes 2. #Acute hypoxia DDX: PE, ACS, resolved -Symptoms improved -Pulmonology consult completed and no new recommendations. -Chest x-ray reviewed: Small left pleural effusion and paratracheal mass with left tracheal deviation -Follow-up CTA chest to rule out PE and further evaluate mass and pleural effusion: reviewed and negative for PE. He had goiter and endocrinology consultation with Dr. Kessler recommended outpatient follow up PHILLIPS and possibly ablation. Phone number for Dr. Kessler provided. -Continue current medications -Patient baseline O2 2 L nasal cannula #Elevated troponin: NSTEMI, versus troponin leak from demand ischemia -Cardiology consult, appreciate recs -EKGs reviewed no ST elevation or T wave inversions -Troponins reviewed. Continue beta-stefanie INCREASED Atenolol to 50 mg daily, aspirin, statin, DEVIN inhibitor. - Outpatient stress test per cardiology and number for Dr. Gallardo provided. #Likely pulmonary hypertension -PASP of 54 and echo EF 55% #Paratracheal mass, tiny nodular goiter -Seen on chest x-ray -Follow-up thyroid ultrasound -Endocrinology consult reviewed. Outpatient PHILLIPS scan and possibly ablation per Dr. Kessler, appreciate recs -Thyroid function test reviewed. No indication for medications at this time #Slurred speech, eval for CVA -Neurology consult not available -Follow-up brain MRI without contrast-no acute stroke -Follow-up carotid ultrasound, and echo as above, echo as above follow-up carotid ultrasound -PT OT noted and will benefit from HH follow up as outpatient #Hypertensive urgency, now resolved -Continue home medications and adjust as necessary - Atenolol new dose is 50 mg daily #UTI -Pansensitive E. coli changed to bactrim, continue until 05/16 #Diabetes type 2 -Check A1c:reviewed -Accu-Cheks q. before meals nightly -Patient takes metformin at home once a day and NOW CHANGED TO TID. #Dyslipidemia -Fasting lipid: reviewed -Continue statin # Mobility PT evaluation recommends FWW and HH ordered for follow up as well ( [facility] ) FULL code. Discharge Condition Upon Discharge: stable Discharge Disposition Patient was discharged to Discharge Diagnoses: (1) UTI (urinary tract infection) (2) Hyperlipemia (3) HTN (hypertension) (4) Weakness (5) Mediastinal mass (6) Substernal goiter (7) Obesity Discharge Instructions Discharge Instructions Services Upon Discharge: physical therapy, home health services Activity: as tolerated, up w/ walker For Surgical Patients May shower: Yes Contact your physician for: Jose Alberto Acosta MD May 14, 2019 09:59
--- NOTE | 2019-05-14 10:45 | Diagnostic Imaging Report ---
Indication:Thyroid nodule Technique: Grayscale and duplex Doppler imaging of the thyroid gland performed. Comparison: None Findings: There is a heterogeneous mostly solid and partially cystic mass in the left thyroid lobe measuring 2.9 x 2 x 2.5 cm. The mass is noncalcified, echogenic to slightly hyperechoic relative to surrounding thyroid parenchyma, wider than tall and has smooth margins. TI-RADS criteria score is 3, which is mildly suspicious. FNA should be considered given the size. There is generalized heterogeneity of the right thyroid lobe. The right lobe measures 6.5 x 2.7 x 2.8 cm. Left lobe 5.6 x 1.6 x 3.4 cm. IMPRESSION: Enlarged heterogeneous thyroid gland demonstrated. TI-RADS 3 mass in the left lobe demonstrated. Consider FNA Interpretation is based on ACR Thyroid Imaging Reporting and Data System (ACR TI-RADS)
[2019-05-14 12:00] VITALS: BP 131/71
--- NOTE | 2019-05-14 12:13 | Hematology/Onc Progress Note ---
Assessment/Plan Assessment/Plan ASSESSMENT AND RECS # Thrombocytopenia - potential causes multifactorial, evaluate liver and viral etiologies to begin, also could be related to underlying medications patient has received. can also be reactive process --> Hep panel and HIV ordered -> NEGATIVE --> US abd to evaluate for cirrhosis and hsm ordered and none noted --> Peripheral smear ordered to evaluate for blasts /schistocytes and none noted --> abx and other meds have been reviewed --> ok for ppx if plt >50k w/ either heparin or lovenox --> Transfuse if Plt < 20k and fever, or if Plt < 10k without fever --> plt trend 117-->115-->143k --> okay for heparin sq at this time # Paratracheal mass likely artifactual finding --> seen on cxr --> ct a/p reviewed and no mass is noted --> ct chest reviewed and none ntoed either # Acute hypoxia DDX: PE, ACS --> Pulmonology consult, appreciate recs --> Continue current medications # Elevated troponin: NSTEMI, versus troponin leak from demand ischemia --. okay for anticoag sq --> per cards recs # Hypertensive urgency, now resolved --> continue home medications and adjust as necessary # Diabetes type 2 --> A1c >8 goal --> Accu-Cheks q. before meals nightly --> Patient takes metformin at home, hold while in hospital # Dyslipidemia --> continue statin, asa # DVT ppx hep sq The timing of this note does not necessarily reflect the time of the patient was seen. GREATLY APPRECIATE CONSULTATION. Subjective Allergies: Coded Allergies: No Known Allergies (Verified , 09/09/11) Subjective 05/10: no events, no bleeding, no night sweats, imaging reviewed 05/12: on 2l nc, on heparin gtt, breathing improved, no fc 05/13: no bleeding, chills or night sweats, hep gtt stopped and hep sq started 05/14: awake and alert, no f/c, no sob, aptt 33, dc planning Objective Objective Current Medications Medications (Trade) Dose Ordered Sig/Gilberto Route PRN Reason Start Time Stop Time Status Last Admin Dose Admin Acetaminophen (Tylenol) 650 mg Q6H PRN ORAL Mild Pain/Temp > 100.5 05/09/19 18:00 06/08/19 17:59 05/12/19 03:54 Albuterol/ Ipratropium (Albuterol/ Ipratropium) 3 ml Q4H PRN HHN Shortness of Breath 05/09/19 15:15 05/14/19 15:14 Albuterol/ Ipratropium (Albuterol/ Ipratropium) 3 ml Q6HRT HHN 05/09/19 19:00 05/14/19 18:59 05/14/19 07:26 Allopurinol (Allopurinol) 300 mg DAILY ORAL 05/09/19 11:00 06/08/19 10:59 05/14/19 08:28 Aspirin (ASA) 81 mg DAILY ORAL 05/09/19 10:00 06/08/19 09:29 05/14/19 08:28 Atenolol (Tenormin) 50 mg DAILY ORAL 05/13/19 09:00 06/12/19 08:59 05/14/19 08:28 Atorvastatin Calcium (Lipitor) 40 mg BEDTIME ORAL 05/09/19 21:00 06/08/19 20:59 05/13/19 21:27 Heparin Sodium (Porcine) (Heparin 5000 units/ml) 5,000 units EVERY 8 HOURS SUBQ 05/13/19 22:00 06/12/19 21:59 Lisinopril (Zestril) 5 mg DAILY ORAL 05/09/19 11:00 06/08/19 10:59 05/14/19 08:28 Magnesium Hydroxide (Mom) 30 ml DAILYPRN PRN ORAL Constipation 05/11/19 17:15 06/10/19 17:14 05/13/19 21:27 Metformin HCl (Glucophage) 500 mg TIAC ORAL 05/12/19 11:30 06/11/19 11:29 05/14/19 06:08 Ondansetron HCl (Zofran) 4 mg Q6H PRN IVP Nausea & Vomiting 05/09/19 03:00 06/08/19 02:59 Pregabalin (Lyrica) 50 mg DAILY ORAL 05/09/19 11:00 06/08/19 10:59 05/14/19 08:30 Trimethoprim/ Sulfamethoxazole (Bactrim-DS) 1 tab Q12HR ORAL 05/14/19 21:00 05/17/19 21:01 Vitamin D (Vitamin D) 1,000 intlu DAILY ORAL 05/09/19 11:00 06/08/19 10:59 05/14/19 08:28 Last 24 Hour Vital Signs Date Time Temp Pulse Resp B/P (MAP) Pulse Ox O2 Delivery O2 Flow Rate FiO2 05/14/19 12:00 97.3 81 20 131/71 (91) 96 05/14/19 09:02 Nasal Cannula 2.0 05/14/19 08:28 81 140/69 05/14/19 08:28 140/69 05/14/19 08:00 97.2 81 18 140/69 (92) 95 05/14/19 08:00 81 05/14/19 07:28 95 Nasal Cannula 2.0 28 05/14/19 07:26 68 16 95 Nasal Cannula 2.0 28 68 18 95 05/14/19 04:00 96.9 91 19 143/78 (99) 98 05/14/19 04:00 91 05/14/19 00:39 68 16 98 Nasal Cannula 2.0 28 60 16 95 05/14/19 00:00 97.7 74 18 145/65 (91) 94 05/14/19 00:00 82 05/13/19 21:00 Nasal Cannula 2.0 05/13/19 20:00 97.8 75 18 141/65 (90) 98 05/13/19 20:00 80 05/13/19 18:50 96 Nasal Cannula 2.0 28 05/13/19 16:00 98.6 71 20 120/69 (86) 97 05/13/19 15:58 72 05/13/19 13:33 69 20 98 Nasal Cannula 2.0 28 62 18 94 05/13/19 12:00 97.0 92 18 129/65 (86) 98 05/13/19 11:58 84 05/13/19 09:00 Nasal Cannula 2.0 05/13/19 08:35 75 148/68 05/13/19 08:35 148/68 05/13/19 08:00 97.5 75 18 148/68 (94) 97 05/13/19 07:58 74 18 100 Nasal Cannula 2.0 28 77 18 94 05/13/19 07:57 95 Nasal Cannula 2.0 28 05/13/19 07:29 84 05/13/19 04:00 75 05/13/19 04:00 98.1 74 18 159/84 (109) 95 05/13/19 00:33 78 18 99 Nasal Cannula 2.0 28 60 16 95 05/13/19 00:00 98.7 76 19 156/72 (100) 94 05/13/19 00:00 79 05/12/19 21:00 Nasal Cannula 2.0 05/12/19 20:00 84 05/12/19 20:00 98.3 77 19 151/72 (98) 94 05/12/19 18:37 74 18 99 Nasal Cannula 2.0 28 70 18 96 05/12/19 18:37 70 18 96 Room Air 2.0 28 05/12/19 18:37 96 Nasal Cannula 2.0 28 05/12/19 16:00 97.9 74 18 132/63 (86) 93 05/12/19 16:00 77 05/12/19 12:38 60 18 99 Nasal Cannula 2.0 28 67 18 96 Intake and Output 05/13/19 05/14/19 19:00 07:00 Intake Total 364.508 ml Output Total 500 ml Balance -135.492 ml Intake Oral 260 ml IV Total 104.508 ml Output Urine Total 500 ml # Voids 3 2 Labs Test 05/12/19 04:10 05/12/19 07:15 05/12/19 14:35 05/13/19 04:05 Activated Partial Thromboplast Time 47 SEC (23-33) 51 SEC (23-33) 65 SEC (23-33) 77 SEC (23-33) White Blood Count 5.2 K/UL (4.8-10.8) Red Blood Count 5.67 M/UL (4.70-6.10) Hemoglobin 14.5 G/DL (14.2-18.0) Hematocrit 44.3 % (42.0-52.0) Mean Corpuscular Volume 78 FL (80-99) Mean Corpuscular Hemoglobin 25.6 PG (27.0-31.0) Mean Corpuscular Hemoglobin Concent 32.8 G/DL (32.0-36.0) Red Cell Distribution Width 13.7 % (11.6-14.8) Platelet Count 143 K/UL (150-450) Mean Platelet Volume 7.5 FL (6.5-10.1) Neutrophils (%) (Auto) 63.3 % (45.0-75.0) Lymphocytes (%) (Auto) 21.0 % (20.0-45.0) Monocytes (%) (Auto) 13.4 % (1.0-10.0) Eosinophils (%) (Auto) 0.6 % (0.0-3.0) Basophils (%) (Auto) 1.7 % (0.0-2.0) Sodium Level 140 MMOL/L (136-145) Potassium Level 3.6 MMOL/L (3.5-5.1) Chloride Level 105 MMOL/L (98-107) Carbon Dioxide Level 28 MMOL/L (21-32) Anion Gap 7 mmol/L (5-15) Blood Urea Nitrogen 10 mg/dL (7-18) Creatinine 1.1 MG/DL (0.55-1.30) Estimat Glomerular Filtration Rate mL/min (>60) Glucose Level 112 MG/DL (74-106) Calcium Level 9.2 MG/DL (8.5-10.1) Test 05/14/19 06:25 Activated Partial Thromboplast Time 33 SEC (23-33) Height (Feet): 5 Height (Inches): 9.00 Weight (Pounds): 180 Objective General Appearance: WD/WN Respiratory/Chest: lungs clear, normal breath sounds Cardiovascular: normal rate, regular rhythm Abdomen: soft, non tender, no organomegaly Extremities: no cyanosis, no clubbing Skin: no lesions Neurologic/Psychiatric: abnormal gait, alert, oriented x 3, responsive Mickey Borja MD May 14, 2019 12:13
--- NOTE | 2019-05-14 14:57 | NUR ---
DISCHARGE SWALLOW/SPEECH THERAPY SUMMARY: PATIENT SEEN BY COVERING PROCEDURE WRITER PRIMARILY FOR SWALLOWING EVALUATION, SEE FULL REPORT. GOALS MET FOR STAFF EDUCATED/TRAINED IN ASPIRATION PRECAUTIONS. GOALS MET FOR INTAKE AT 75-100% ON REG TEXTURE AND THIN LIQUIDS UNABLE TO HAVE MODIFIED BARIUM SWALLOW STUDY DUE TO SCHEDULING CONFLICTS AND PT BEING D/C HOME TODAY WITH HOME CARE SERVICES. PLAN: F/UP WITH OUTPT OR [facility] PROCEDURE WRITER FOR MODIFIED BARIUM SWALLOW STUDY, SKILLED DYSPHAGIA MANAGEMENT/TX AND SPEECH EVAL/TX (PERSISTENT DYSARTHRIA "SLURRED SPEECH" PER FAMILY AND PROCEDURE WRITER).
--- NOTE | 2019-05-14 15:20 | NUR ---
NURSE NOTES: Patient's discharged. Discharge paper, belonging list are signed by patient. IV removed, residential monitor removed, ID band is removed and disposed correctly. Patient's stable condition, no s/s of distress or SOB. Patient's getting home via private vehicle with his family member. Charge nurse is notified.
--- NOTE | 2019-05-14 16:56 | Consultation ---
DATE OF CONSULTATION: 05/12/2019 ENDOCRINOLOGY CONSULTATION CONSULTING PHYSICIAN: Khoi Kessler M.D. REFERRING PHYSICIAN: Adri Garland M.D. REASON FOR CONSULTATION: Enlarged thyroid. HISTORY OF PRESENT ILLNESS: The patient is an 78-year-old male with history of type 2 diabetes, hypertension, dyslipidemia, presented to the hospital with generalized weakness for few days, was found to have elevated troponin as evaluated by tax associate attorney. The patient was acutely hypoxic during the admission. Oxygen saturation was 78% and his systolic blood pressure was elevated to 180. As a part of the evaluation, a chest x-ray was obtained, which showed a neck and paratracheal mass. The CT angiogram was also performed, which showed an enlarged thyroid, especially on the right side and deviating the airway, but the airway is patent. Thyroid function test was obtained, which showed a low TSH, but normal T4. PAST MEDICAL HISTORY: 1. Hypertension. 2. Diabetes. 3. Dyslipidemia. MEDICATIONS: Reviewed and reconciled. SOCIAL HISTORY: No alcohol. Admits to smoking. No drug use. FAMILY HISTORY: Noncontributory. ALLERGIES TO MEDICATIONS: None. REVIEW OF SYSTEMS: A 12-point review of systems performed and pertinent positives and negatives as noted in the history of present illness. LABORATORY DATA: WBC 5, hemoglobin 15, hematocrit 46, platelets of 115. Sodium 134, potassium 3.5, chloride 102, bicarbonate 26, BUN 16, creatinine 1.1, and glucose of 112, A1c of 6.7. TSH is 0.1, free T4 of 1.0. PHYSICAL EXAMINATION: VITAL SIGNS: Blood pressure is 142/90, heart rate of 77, temperature 98.1, respiratory rate of 20. HEENT: Pupils equal and reactive to light. Sclerae anicteric. NECK: Enlarged thyroid palpable, lower border of the right lobe is not palpable going beyond the clavicle. HEART: Regular. LUNGS: Clear. ABDOMEN: Positive bowel sounds. EXTREMITIES: Positive for edema. 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 On CT scan, the airway is patent. There is no discrete nodule noted on the CT chest. I recommend to obtain a thyroid ultrasound to rule out the possibility of any worrisome nodules. The patient is a candidate for radioactive iodine uptake and treatment in order to reduce the size of the nodule, especially since the TSH is on the lower side. He is not a candidate for antithyroid medication because that will rise the TSH level and hence thyroid size will grow and will put more compression. I provided him with my contact information. Once he is released from the hospital, he can call me. He can call my office and I will set him up for a reactive iodine uptake followed by ablation. Diabetes seems to be in the reasonable control. A1c 6.7. I will start the patient on metformin monotherapy. Continue glucose monitoring and NovoLog sliding scale before meals and at bedtime and diet should be diabetic, cardiac. Thank you, Dr. Garland, for the courtesy of this consultation. Khoi Kessler M.D. DR: STEPHANIE/IDRIS JOB#: [id number] CC: GAURI
[2019-05-14] MEDS ORDERED: Bactrim-DS 1 tab ORAL SCH (21:00)
== END 2019-05-14 15:15 | disposition home health service (06) | DRG 280 ==
LOC: EDBD 21:37 → EMR 22:00 → EDBEDREQSVC 22:52 → EDBEDREQ 22:52 → 2E 05-09 → EDBEDREQ 05-09 00:55 → 2E 05-09 01:26
DX: I21.4 Non-ST elevation (NSTEMI) myocardial infarction (principal); J98.59 Other diseases of mediastinum, not elsewhere classified; N39.0 Urinary tract infection, site not specified; R53.1 Weakness; I10 Essential (primary) hypertension; E11.9 Type 2 diabetes mellitus without complications; E78.5 Hyperlipidemia, unspecified; R09.02 Hypoxemia; I27.20 Pulmonary hypertension, unspecified; B96.20 Unspecified Escherichia coli [E. coli] as the cause of diseases classified elsewhere; I16.0 Hypertensive urgency; E66.9 Obesity, unspecified; Z87.891 Personal history of nicotine dependence; J39.8 Other specified diseases of upper respiratory tract; R47.81 Slurred speech; D69.6 Thrombocytopenia, unspecified; E04.9 Nontoxic goiter, unspecified; E05.80 Other thyrotoxicosis without thyrotoxic crisis or storm
CPT/HCPCS: 36415; 36600; 70551; 71045; 71275; 74177; 76536; 80048; 80053; 81001; 81003; 82248; 82550; 82553; 82803; 82962; 83036; 83605; 83690; 84439; 84443; 84484; 85007; 85025; 85379; 85730; 86703; 86705; 86709; 86803; 87040; 87086; 87181; 87340; 93005; 93306; 93880; 93970; 94640; 94664; 96361; 96365; 99285; J2405; J7620; J8499

== ENCOUNTER → 2020-07-17 | Day surgery (SDC) | payer MEDICARE, BC ==
[~2020-07-17] VITALS: Ht 168.9 cm; Wt 81.6 kg
[2020-07-17] VITALS (13 sets, daily range): BP systolic 126–153; BP diastolic 68–82
[~2020-07-17] MED LIST: ALLOPURINOL100 M1 ORAL; ASPIRIN81 MG ORAL; ATENOLOL50 MG ORAL; BACTRIM-DS1 EA ORAL; Bacitracin 50000 Units Vial ONE; Bupivacaine 0.25% Inj 30ml INJ ONE; D5 1/2NS 1,000 ML IV SCH; GLUCOPHAGE500 MG ORAL; HYDROcodone/Acetamin 5/325 tab ORAL PRN; HYDROmorphone 1mg/ml Carpuject SUBQ PRN; LIPITOR80 MG ORAL; LYRICA50 MG ORAL; Lidocaine 1% MPF 10mg/ml 5ml ONE; Midazolam 2mg/2ml Inj ONE; NS Irrig 1000ml IRRIG ONE; NS Irrig 1000ml ONE; NeoSporin Gu Irrig 1ml Amp IRRIG ONE; Sterile Water Irrig 1000ml IRRIG ONE; Tylenol #3 tab (300mg/30mg) ORAL PRN; VITAMIN D1000 UNI1 ORAL; ZESTRIL10 M1 ORAL; ceFAZolin 1gm IVPB IVPB ONE; celeBREX 200mg Cap **SURGERY PATIENTS ONLY ORAL ONE; fentaNYL 100 mcg/2 mL IV ONE; fentaNYL 100 mcg/2 mL IV PRN; oxyCONTIN 20mg tab ORAL ONE
--- NOTE | 2020-07-17 07:24 | Anethesia Preoperative Eval ---
Anesthesia Pre-op PMH/ROS General Date of Evaluation: Jul 17, 2020 Time of Evaluation: 07:15 Anesthesiologist: montserrat ASA Score: ASA 3 Mallampati Score Class I : Soft palate, uvula, fauces, pillars visible Class II: Soft palate, uvula, fauces visible Class III: Soft palate, base of uvula visible Class IV: Only hard plate visible Mallampati Classification: Class III Surgeon: radha Diagnosis: ganglion cyst Surgical Procedure: excision of ganglion cyst left middle finger Anesthesia History: none Social History: smoking Family History: no anesthesia problems Allergies: Coded Allergies: No Known Allergies (Verified , 07/17/20) Medications: see eMAR Patient NPO?: Yes NPO Date: Jul 17, 2020 NPO Time: 00:01 Past Medical History Cardiovascular: Reports: HTN, CAD Pulmonary: Reports: COPD Endocrine: Reports: DM Other: obesity, 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 Exam Physician Exam Last Vital Signs Date Time Temp Pulse Resp B/P (MAP) Pulse Ox O2 Delivery O2 Flow Rate FiO2 07/17/20 06:16 Room Air 07/17/20 06:15 97.7 61 18 147/74 96 Constitutional: NAD Neurologic: CN 2-12 intact Cardiovascular: RRR Respiratory: CTA Gastrointestinal: S/NT/ND Airway Exam Mallampati Classification 3 Mallampati Score: Class III Neck: thick Dentures: upper Anesthesia Pre-op A/P Labs Chemistry Test 07/17/20 06:10 POC Whole Blood Glucose Pending Studies Pre-op Studies: EKG - sr Risk Assessment & Plan Assessment: denies exacerbation of COPD/chest pain the last two months Plan: mac/general Status Change Before Surgery: Elizabeth Herrera CRNA Jul 17, 2020 07:24
--- NOTE | 2020-07-17 07:41 | Operative Note - PDOC ---
Operative Note Operative Note Pre-op Diagnosis: left middle ganglion cyst Procedure: see op report Post-op Diagnosis: same as pre-op plus Operative Findings: consistent w/pre-op dx studies Anesthesia: MAC Specimen: none Complications: none Condition: stable Estimated Blood Loss: none Implant(s) used?: No Gilberto Faust MD Jul 17, 2020 07:41
--- NOTE | 2020-07-17 07:41 | Pre-Procedure Note/Attestation ---
Pre-Procedure Note/Attestation Complete Prior to Procedure Planned Procedure: left Procedure Narrative: finger excision ganglion cyst Indications for Procedure Pre-Operative Diagnosis: left middle ganglion cyst Attestation I attest that I discussed the nature of the procedure; its benefits; risks and complications; and alternatives (and the risks and benefits of such alternatives), prior to the procedure, with the patient (or the patient's legal internet sales representative). I attest that, if there was a reasonable possibility of needing a blood transfusion, the patient (or the patient's legal internet sales representative) was given the [facility] standardized written summary, pursuant to the Tio Halbur Blood Safety Act ([place] Health and Safety Code # 1645, as amended). I attest that I re-evaluated the patient just prior to the surgery and that there has been no change in the patient's H&P, except as documented below: Gilberto Faust MD Jul 17, 2020 07:41
--- NOTE | 2020-07-17 08:14 | Immediate Post-Op Evaluation ---
Immediate Post-Op Evalulation Immediate Post-Op Evalulation Procedure: excision of left middle finger ganglion cyst Date of Evaluation: Jul 17, 2020 Time of Evaluation: 08:13 IV Fluids: 400 Blood Pressure Systolic: 149 Blood Pressure Diastolic: 57 Pulse Rate: 55 Respiratory Rate: 14 O2 Sat by Pulse Oximetry: 99 Temperature (Fahrenheit): 97.0 Nausea: No Vomiting: No Complications none Patient Status: awake, reacts, patent Hydration Status: adequate Drug: ancef Given Within 1 Hr of Incision: Yes Time Given: 07:30 Elizabeth Stewart CRNA Jul 17, 2020 08:14
--- NOTE | 2020-07-17 09:00 | Operative Note - Dictated ---
DATE OF OPERATION: 07/17/2020 POSTOPERATIVE DIAGNOSIS: Left middle finger ganglion cyst. POSTOPERATIVE DIAGNOSIS: Left middle finger ganglion cyst. PROCEDURE: Excision of left middle finger ganglion sheath tumor versus cyst measuring 3 x 4 mm. SURGEON: Gilberto Faust MD ANESTHESIA: MAC. INDICATION FOR PROCEDURE: The patient is a pleasant gentleman who has had a mass along the middle finger that is making difficult to long chain quiller tender because of pain open excision. Risks, limitations, expectations, and complications of the procedure were discussed in detail. All questions were addressed. DESCRIPTION OF PROCEDURE: After informed consent was obtained, the patient was brought to the operating room. The patient was placed under general anesthesia. The left arm was prepped and draped in a sterile manner. Ancef was administered. Time-out was performed. The mass was identified and the skin was incised along the skin creases. Blunt dissection down to the flexor tendon was performed. The mass was then identified and excised. Once that was completely excised, wound was copiously irrigated. Skin was approximated using nylon sutures. Compression dressing was applied. The patient was awoken and taken to the recovery room with stable vital signs. ESTIMATED BLOOD LOSS: None. COMPLICATIONS: None. SPECIMENS: Include soft tissue mass 3 x 4 mm, left middle ganglion cyst versus ganglion sheath tumor. Gilberto Faust M.D. DR: Lauren JOB#: [id number] CC: GAURI
--- NOTE | 2020-07-17 09:41 | 48 Hour Post Anesthesia Eval ---
Post Anesthesia Evaluation Procedure: excision of left middle finger ganglion cyst Date of Evaluation: Jul 17, 2020 Time of Evaluation: 09:41 Blood Pressure Systolic: 132 0: 71 Pulse Rate: 58 Respiratory Rate: 14 Temperature (Fahrenheit): 97 O2 Sat by Pulse Oximetry: 98 Airway: patent Nausea: No Vomiting: No Pain Intensity: 0 Hydration Status: adequate Cardiopulmonary Status: stable Mental Status/LOC: patient returned to baseline Post-Anesthesia Complications: none Follow-up care needed: N/A Elizabeth Stewart CRNA Jul 17, 2020 09:41
== END | disposition home or self-care (01) ==
LOC: SUR 05:39
DX: M67.442 Ganglion, left hand (principal); I11.9 Hypertensive heart disease without heart failure; I25.10 Atherosclerotic heart disease of native coronary artery without angina pectoris; J44.9 Chronic obstructive pulmonary disease, unspecified; E11.40 Type 2 diabetes mellitus with diabetic neuropathy, unspecified; E66.9 Obesity, unspecified; Z87.891 Personal history of nicotine dependence
CPT/HCPCS: 26160; 82962; 94003; J0690; J2250; J2405; J2704; J3010; J3490; U0002; 94150